=== PATIENT | female | born 1990 | race Caucasian/White ===

== ENCOUNTER 2021-03-14 10:26 | Emergency (ER) | payer OTHER, SELFPAY ==
[2021-03-14 10:47] VITALS: BP 108/72; PULSE 85; RESP 18; TEMP 36.7; O2SAT 96; BMI 26.2
[2021-03-14] MEDS: Acetaminophen 325 MG TABLET 650 MG PO (11:36)
[2021-03-14] MEDS: Lidocaine 4 % Patch ADH..PATCH 1 PATCH TRANSDERMA (11:36)
--- NOTE | 2021-03-14 11:46 | ED_ITS ---
HPI - General Adult General Chief complaint: General Medical Stated complaint: body pain Time Seen by Provider: 03/14/21 11:08 Source: patient Mode of arrival: ambulatory History of Present Illness HPI narrative: 30 y.o. F with PMH of bipolar disorder, anxiety, fibromyalgia,hypothyroidism presenting to the ED with body pain. SHe tells me because of the weather change she is having a flare up of her fibromyalgia pain. SHe states she is here because her boyfriend is being seen as well and she had to help him come into the ED and he was leaning on her shoulders and she thinks this might have exacerbated her pain. She denies trauma or injury. She states she was seeing physical therapy for her pain and was previously on lyrica but has been off the medications because she had travelled to [place] and was there for quite some time. SHe is disabeled due to her fibromyalgia pain. SHe has been attempting to get in with a primary care doctor but has been unsuccessful. Her pain is everywhere, back, shoulders, knees, legs. She does use cannabis to take the edge of the pain.She denies chance of had a tubal surgery in the past. Related Data Previous Rx's Medication Instructions Recorded lidocaine 5 % topical patch 1 patch TOPICAL DAILY 7 Days #7 ea 03/14/21 Allergies Allergy/AdvReac Type Severity Reaction Status Date / Time ketorolac [From TORADOL] Allergy Severe ANAPHYLAXIS Verified 03/14/21 10:50 metoclopramide [From REGLAN] Allergy Severe ANAPHYLAXIS Verified 03/14/21 10:50 prochlorperazine Allergy Severe ANAPHYLAXIS Verified 03/14/21 10:50 [From COMPAZINE] Review of Systems Constitutional: Constitutional: Denies fever(s) and Denies headache(s) Eyes: Eyes: Reports no additional eye complaints ENT: Denies dizziness and Denies headache(s) Cardiovascular: Cardiovascular: Denies chest pain and Denies dyspnea Respiratory: Respiratory: Denies dyspnea Gastrointestinal: Gastrointestinal: Denies abdominal pain Musculoskeletal: Comments: body pain, extremity pain, back pain Neurologic: Denies dizziness and Denies headache(s) Psychiatric: Psychiatric: Reports anxiety Hematologic/Lymphatic: Hematologic/Lymphatic: Denies easy bleeding PMFSH Past Medical History Medical History (Updated 03/14/21 @ 11:47 by JEREMIAH Levin) Fibromyalgia Social History Social History (Updated 03/14/21 @ 12:31 by JEREMIAH Levin) Substance Use Type: Marijuana Advance Directives: No Advance Directives Information Provided: No Patient : No Physical Exam Vital Signs: Vital Signs: Last Vital Signs Temp 98.1 F 03/14/21 10:47 Pulse 85 03/14/21 10:47 Resp 18 03/14/21 10:47 BP 108/72 03/14/21 10:47 Pulse Ox 96 03/14/21 10:47 Body Mass Index 26.2 Const: General: cooperative Orientation/consciousness: patient oriented x3 HENMT: Head: Yes atraumatic Eyes: Pupils: Equal, round and reactive pupils present EOM: EOMs intact bilaterally Neck: Neck: Yes full ROM, Yes no meningeal signs, Yes trachea midline and Yes supple Chest: Other: no visible deformity Resp: Effort & Inspection: normal respiratory effort and able to speak in complete sentences Auscultation: clear to auscultation bilaterally Cardio: Rate: regular rate Rhythm: regular rhythm GI: Palpation (GI): Soft to palpation and nontender Back/Spine/Pelvis: Other: full ROM Skin: Rashes: no rashes Neuro: General: patient oriented x3 and no meningeal signs Cranial nerves: Yes Equal, round and reactive pupils present Extrem: Other: moving all extremities spontnaneously, ambulatory with steady gait, able to get in and out of the stretcher freely without difficulty General: Yes full ROM Psych: Appearance: grossly normal Medical Decision Making MDM Narrative Medical decision making narrative: 30 y.o. F presenting to the ED with body pain, suspects it is her fibromyalgia flare VS stable, not toxic appearing, hemodynamically stable Pt. has no focal pain, pain is diffuse. Since she has no accompanied URI symptoms, afebrile doubt COVID will defer swab. NO focal weakness. No recent trauma or fall to suggest underlying fx. No infectious symptoms, no signs of systemic illness. No menningeal signs. No report of rash or fever. No symptoms to suggest a UTI. No red flags for SEA/cord compression. No parasthesias. No indication for imaging or labs. -Pt. was given tylenol and a lidocaine patch and was very upset that her chronic pain is not being treated. I had a lengthy discussion with her that she needs to follow up with a PCP for pain management and possibly PT again. She tells me she needs something for pain and that she has tylenol at home which she could take. I asked her what she is specifically looking for what she could not tell me. She refused to sign the papers because she did not want to leave until her pain was treated. She tells me she will go to [facility] for better care. I did encourage her to seek additional treatment should she feel that was necessary. She is going to file a complaint because she does not think her pain was adequately treated. -Pt. has chronic pain and needs follow up with a PCP/pain management- in the meantime lidocaine patches and tylenol are sufficient for pain control which I have discussed with her. Will not give narcotics during this visit. Discharge Plan Discharge Clinical Impression: Total body pain Patient Disposition: Home, Self-Care Instructions: Pain Management (ED) Additional Instructions: PLease continue to call to establish a primary care doctor. Please return should your symptoms worsen, increased pain, weakness, numbness, tingling, difficulty walking, loss of balance, falling, or any other concerning symptoms. You may take tylenol for pain if needed as directed over the counter. Prescriptions: New lidocaine 5 % adhesive patch,medicated 1 patch topical DAILY 7 Days Qty: 7 RF: 0 Interventions: ED Discharge Assessment Last Done: 03/14/21 12:16 Discharge Date/Time: 03/14/21 12:16
--- NOTE | 2021-03-14 11:59 | PC.NURSE ---
PT HAS QUESTIONS FOR PROVIDER REGARDING HER PAIN TREATMENT HERE IN ED. PT SAYING MY MOTHER IS ON THE PHONE AND SHE IS SAYING DONT SIGN ANYTHING BECAUSE THEY ARE NOT TAKING YOUR FIBROMYALGIA SERIOUS AND YOU SHOULD GO TO [facility]. PT QUESTIONING THIS RN AND PROVIDER REGARDING HER TREATMENT AT THIS TIME. NO FACIAL GRIMACING, PT HAS STEADY GAIT, MOVING ALL EXTREMITIES, PT UNHAPPY ABOUT ONLY GETTING TYLENOL AND LIDOCAINE PATCHES.
--- NOTE | 2021-03-14 12:14 | PC.NURSE ---
PT GIVEN INFORMATION ON HOW TO FILE A COMPLAINT. THIS RN WITNESSED PATIENT LEAVE [facility].
== END 2021-03-14 12:16 | disposition home or self-care (01) ==
PROVIDERS: Emergency Provider Emergency Medicine
DX: M79.10 Myalgia, unspecified site (principal); F31.9 Bipolar disorder, unspecified; F12.90 Cannabis use, unspecified, uncomplicated; Z79.899 Other long term (current) drug therapy
CPT/HCPCS: 99283

== ENCOUNTER 2024-11-08 10:03 | Outpatient (AMB) | payer OTHER, SELFPAY ==
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
[2024-11-08 10:08] VITALS: BP 140/70; PULSE 116; TEMP 36.4; O2SAT 97; BMI 23.2
--- OUTSIDE RECORDS SUMMARY | 2024-11-08 10:51 | XMS_ITS | Patient Health Record ---
Author Organization [facility] Address [address] [place] [address] Care Team Providers Care Sales Porter Name Role Phone JOSIANE VARGAS Unavailable [phone] ALLERGIES Allergen (clinical drug ingredient) Drug/Non Drug Allergy documented on EMR Reaction Allergy Type Onset Date Status metoclopramide Reglan rash Drug Allergy Ac tive Compazine hives Drug Allergy Active RESULTS Component Value Reference Range Notes CBC WITH AUTO DIFF Reviewed date:03/28/2024 01:31:54 PM Interpretation: Performing Lab: Notes/Report: WBC 11.5 4.8-10.8 x10-3/uL RBC 4.4 3.8-4.8 x10-6/uL HEMOGLOBIN 12.6 11.5-16.0 g/dL HEMATOCRIT 39.7 35-47 % MCV 91.3 79-98 fL MCH 29.0 27-32 pg MCHC 31.7 32-37 g/dL RDW 13.6 11-15 % PLT COUNT 448 130-400 x10-3/uL MEAN PLATELET VOLUME 10.4 7-11 fL NRBC % AUTO 0.0 <1 % NEUT % 74.8 LYMPH % 20.3 MONO % 4.2 EOS % 0.1 BASO % 0.3 IMMATURE GRANULOCYTES % 0.3 NRBC # AUTO 0.00 <0.1 x10-3/uL ABSOLUTE NEUT 8.62 1.5-7.0 x10-3/uL LYMPH # 2.34 1-5.0 x10-3/uL MONO # 0.49 0.2-1.0 x10-3/uL EOS # 0.01 0-0.5 x10-3/uL BASO # 0.04 0-0.2 x10-3/uL IMMATURE GRANULOCYTES # 0.04 0-0.03 x10-3/uL TOTAL IRON BINDING CAPACITY Reviewed date:03/28/2024 05:15:03 PM Interpretation: Performing Lab: Notes/Report: Note Original Orderi ng Provider: JOSIANE VARGAS FILM PRODUCER TOTAL IRON BINDING CAPACITY 328 250-450 ug/dL IRON (FE) 53 40-150 ug/dL % FE SATURATION 16 15-50 % FERRITIN Reviewed date:03/28/2024 05:15:03 PM Interpretation: Performing Lab: Notes/Report: FERRITIN 39 8-252 ng/mL Note [employer], a member of [address] [address] [employer] - Abby Hodgson MD VAGINOSIS DNA PANEL Reviewed date:01/31/2024 10:31:35 AM Interpretation: Performing Lab: Notes/Report: Note Original Ordering Provider: ADAMS SARGENT MD [employer], a member of [address] [address] [employer] - Abby Hodgson MD TRICHOMONAS VAGINALIS NEGATIVE NEGATIVE GARDERELLA VAGINALIS NEGATIVE NEGATIVE ROSA SPECIES NEGATIVE NEGATIVE Note Original Ordering Provider: ADAMS SARGENT MD [employer], [place] [address] [employer] - Abby Hodgson MD REASON FOR REFERRAL No Information MEDICATIONS Medication SIG (Take, Route, Fr equency, Duration) Notes Start Date End Date Status Mounjaro 2.5 MG/0.5ML 2.5mg Subcutaneous weekly for 30 days Active Pregabalin 25 MG 1 capsule Orally twi ce a day for 30 days Active Mounjaro 2.5 MG/0.5ML INJECT 2.5MG SUBCU TANEOUSLY WEEKLY Active Ferrous Sulfate 325 (65 Fe) MG 1 tablet Orally daily for 90 days 03/28/2024 Active IMMUNIZATIONS Vaccine Route Administration Date Status Comme nts COVID 19 VACCINE IM Intramuscular 05/16/2023 Administered SOCIAL HISTORY Tobacco Use: Social History Observation Description Date Details (start date - stop date) Former Smoker NA - NA Sex Assigned At : Social History Observation Description Sex Assigned At Unknown Tobacco Use/Smoking Question Answer Notes Are you a former smoker Section Notes: Tob: Not currenty ETOH: None Medical Marijuana license Tob: Former tobacco abuse ETOH: None Medical Marijuana license, vape pen- weed Originally from [place] Tob: Former tobacco abuse ETOH: None Medical Marijuana license, vape pen- weed Originally from [place] Tob: Former tobacco abuse ETOH: None Medical Marijuana license, vape pen- weed Originally from [place] Tob: Not currenty ETOH: None Medical Marijuana license Tob: Not currenty ETOH: None Medical Marijuana license Tob: Not currenty ETOH: None Medical Marijuana license Tob: Not currenty ETOH: None Medical Marijuana license Tob: Not currenty ETOH: None Medical Marijuana license Tob: Not currenty ETOH: None Medical Marijuana license Tob: Former tobacco abuse ETOH: None Medical Marijuana license, vape pen- weed Originally from [place] Tob: Not currenty ETOH: None Medical Marijuana license Tob: Not currenty ETOH: None Medical Marijuana license Tob: Not currenty ETOH: None Medical Marijuana license Tob: Not currenty ETOH: None Medical Marijuana license Tob: Former tobacco abuse ETOH: None Medical Marijuana license, vape pen- weed Originally from [place] Tob: Former tobacco abuse ETOH: None Medical Marijuana license, vape pen- weed Originally from [place] PROBLEMS Problem Type ICD Code Onset Dates Problem Status W/U Status Risk SNOMED Code Notes Problem Tension headache (G44.209) Active confirmed Tension headach e (636846983) Problem Menorrhagia with regular cycle (N92.0) Active confirmed 404164499 Problem BMI 30.0-30.9,adult (Z68.30) Active confirmed Body mass index 30+ - obesity (513382815) Problem Body mass index [BMI ] 32.0-32.9, adult (Z68.32) Active confirmed 539096263 Problem Gastroesophageal reflux disease without esophagitis (K21.9) Active confirmed 986024061 Problem Bipolar 1 disorder (F31.9) Active confirmed Bipolar 1 disorder (412634315) Problem Hypothyroidism, unspecified type (E03.9) Active confirmed 87325636 Problem Postmenopausal bleeding (N95.0) Active confirmed Postmenopau miguelangel bleeding (43476992) Problem Mixed hyperlipidemia (E78.2) Active confirmed 350472793 Problem Acute sore throat (J02.9) Active confirmed Acute pharyngitis (063560703) Problem Asthma (J45.909) Active confirmed Asthm a (238043986) Problem Bipolar 1 disorder, depressed (F31.9) Active confirmed Bipolar di sorder (49172651) Problem Cough (R05.9) Active confirmed Cough (4 9156255) Problem Encounter for screening mammogram for breast cancer (Z12.31) Active confirmed 198785963 Problem Stress (F43.9) Active confirmed Stress (19026968) Problem BMI 31.0-31.9,adult (Z68.31) Active confirmed Body mass index 30.00 to 34.99 (688604140539408 ) Problem Hot flashes (R23.2) Active confirmed Ho t flashes (876258155) Problem Knee pain, unspecifi ed chronicity, unspecified laterality (M25.569) Active confirmed Pain of knee region (finding) (9675960894) Problem Obesity (BMI 30.0-34.9) (E66.9) Active confirmed Obese cla ss I (finding) (366062429041228 ) Problem 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) Active confirmed 7733568 Problem Anxiety (F41.9) Active confirmed Anxiet y (44238377) Problem Hyperlipidemia, unspecified hyperlipidemia type (E78.5) Active confirmed 74772706 Problem Encounter for screening for cardiovascular disorders (Z13.6) Active confirmed Screening for cardiovascular system disease (552997753) Problem Encounter for screening for diabetes mellitus (Z13.1) Active confirmed 302345374 Problem Other obesity (E66.8) Active confirmed 194289178 Problem Vitamin D deficiency , unspecified (E55.9) Active confirmed 16382789 VITAL SIGNS Heart Rate 86 /min 03/28/2024 Blood pressure diastolic 60 mm Hg 03/28/2024 Oximetry 99 % 03/28/2024 Height 61 in 03/28/2024 Blood pressure systolic 100 mm Hg 03/28/2024 Weight 127 lbs 03/28/2024 BMI 23.99 kg/m2 03/28/2024 Encounters Encounter Location Date Provider Diagnosis [facility] [address] [address] 01/30/2024 JOSIANE VARGAS BMI 25.0-25.9,adult Z68.25 ; Overweight (BMI 25.0-29.9) E66.3 ; Dietary counseling and surveillance Z71.3 ; Bipolar 1 disorder F31.9 and Hypothyroidism, unspecified type E03.[address] [facility] [address] [facility] [address] [address] 04/25/2024 JOSIANE VARGAS [facility] [address] [facility] [address] [address] 08/01/2024 JOSIANE VARGAS [facility] [address] [facility] [address] [address] 12/05/2023 JOSIANE VARGAS Bipolar 1 disorder F31.9 ; Overweight (BMI 25.0-29.9) E66.3 ; Hypothyroidism, unspecified type E03.9 and BMI 25.0-25.9,adult Z68.[address] [facility] [address] [facility] [address] 03/28/2024 JOSIANE VARGAS BMI 25.0-25.9,adult Z68.25 ; Overweight (BMI 25.0-29.9) E66.3 ; Dietary counseling and surveillance Z71.3 ; Bipolar 1 disorder F31.9 ; Hypothyroidism, unspecified type E03.9 and Menorrhagia with regular cycle N92.0 [facility] [place] [address] [facility] [address] [address] 03/27/2024 JOSIANE VARGAS Overweight (BMI 25.0-29.9) E66.3 [facility] [address] [facility] [address] 03/28/2024 JOSIANE VARGAS [facility] [address] [facility] [address] 04/04/2024 JOSIANE VARGAS Overweight (BMI 25.0-29.9) E66.3 [address] [facility] [address] [address] 04/20/[address] [facility] [address] [facility] [address] 04/24/2024 JOSIANE VARGAS [address] [facility] [address] [address] 04/25/2024 JOSIANE VARGAS [facility] [address] [facility] [address] 07/09/2024 JOSIANE VARGAS [facility] [address] [place] [address] [place] [address] 08/05/2024 JOSIANE VARGAS ASSESSMENTS Encounter Date Diagnosis Assessment Notes Treatment Notes Treatment Clinical Notes Section Notes 12/05/2023 Bipolar 1 disorder (ICD-10 - F31.9) #Weight Management 12/05/2023 Updated labs reviewed Discussed protein consumption and [...] minimum of 6 months The most recent [place] [employer] of clinical endocrinologists and [employer] of endocrinology guidelines recommend patients who [...] track activity level. Consider using apps like [employer], [employer], lose it, stick as needed for self-monitoring and weight management. Consider group exercises. Consider hiring a link trainer maintenance man. Regular exercise is berrios to sustainable health [...] about local counseling and psychiatry and Dr Jarerll at [facility]. We would like to cover regular topics [...] software and direct typing Please excuse inadvertent transport tech or typing errors, or uncorrected word substitutions Although every attempt has been made by the provider to proofread this document, occasional misspellings and typographical errors may still be present Due to the previous pandemic, and the use of personal protective equipment (PPE) This may decrease voice recognition accuracy Inadvertent transport tech errors may occur 01/30/2024 BMI 25.0-25.9,adult (ICD-10 - Z68.25) #Weight [...] minimum of 6 months The most recent [place] [employer] of clinical endocrinologists and [place] [employer] of endocrinology guidelines recommend patients who [...] track activity level. Consider using apps like [employer], [employer], lose it, stick as needed for self-monitoring and weight management. Consider group exercises. Consider hiring a link trainer maintenance man. Regular exercise is berrios to sustainable health [...] counseling and psychiatry and Dr Jarrell at [facility]. We would like to cover regular topics [...] software and direct typing Please excuse inadvertent transport tech or typing errors, or uncorrected word substitutions Although every attempt has been made by the provider to proofread this document, occasional misspellings and typographical errors may still be present Due to the previous pandemic, and the use of personal protective equipment (PPE) This may decrease voice recognition accuracy Inadvertent transport tech errors may occur 03/27/2024 Overweight (BMI 25.0-29.9) (ICD-10 - E66.3) 03/28/2024 BMI 25.0-25.9,adult (ICD-10 - Z68.25) Acute Concerns/Problem List: 03/29/2024 Lets get a CBC and iron studies Start iron Discussed protein consumption and vitamins The conditions are mostly stable including bipolar disorder cont mounjaro 5mg cont Lyrica We discussed maintenance dosing moving forward, about every 3-4 weeks is acceptable. Lyrica prescrbed for fibromyalgia pain. Total time spent today was 30 minutes of which greater than 50% was spent on coordinating and counseling Patient has been found to be overweight with a BMI of (25). We are a board certified obesity and weight management practice Patient has trialed behavioral modification, dietary restrictions and exercise for a minimum of 6 months The most recent [place] [employer] of clinical endocrinologists and [place] [employer] of endocrinology guidelines recommend patients who [...] track activity level. Consider using apps like [employer], [employer], lose it, stick as needed for self-monitoring and weight management. Consider group exercises. Consider hiring a link trainer maintenance man. Regular exercise is berrios to sustainable health [...] counseling and psychiatry and Dr Jarrell at [facility]. We would like to cover regular topics [...] software and direct typing Please excuse inadvertent transport tech or typing errors, or uncorrected word substitutions Although every attempt has been made by the provider to proofread this document, occasional misspellings and typographical errors may still be present Due to the previous pandemic, and the use of personal protective equipment (PPE) This may decrease voice recognition accuracy Inadvertent transport tech errors may occur 04/04/2024 Overweight (BMI 25.0-29.9) (ICD-10 - E66.3) 03/28/2024 Overweight (BMI 25.0-29.9) (ICD-10 - E66.3) Acute Concerns/Problem List: 03/29/2024 Lets get a CBC and iron studies Start iron Discussed protein consumption and vitamins The conditions are mostly stable including bipolar disorder cont mounjaro 5mg cont Lyrica We discussed maintenance dosing moving forward, about every 3-4 weeks is acceptable. Lyrica prescrbed for fibromyalgia pain. Total time spent today was 30 minutes of which greater than 50% was spent on coordinating and counseling Patient has been found to be overweight with a BMI of (25). We are a board certified obesity and weight management practice Patient has trialed behavioral modification, dietary restrictions and exercise for a minimum of 6 months The most recent [place] [employer] of clinical endocrinologists and [employer] of endocrinology guidelines recommend patients who [...] track activity level. Consider using apps like [employer], myfitnesspal, lose it, stick as needed for self-monitoring and weight management. Consider group exercises. Consider hiring a link trainer maintenance man. Regular exercise is berrios to sustainable health [...] counseling and psychiatry and Dr Jarrell at [facility]. We would like to cover regular topics [...] software and direct typing Please excuse inadvertent transport tech or typing errors, or uncorrected word substitutions Although every attempt has been made by the provider to proofread this document, occasional misspellings and typographical errors may still be present Due to the previous pandemic, and the use of personal protective equipment (PPE) This may decrease voice recognition accuracy Inadvertent transport tech errors may occur 03/28/2024 Dietary counseling and surveillance (ICD-10 - Z71.3) Acute Concerns/Problem List: 03/29/2024 Lets get a CBC and iron studies Start iron Discussed protein consumption and vitamins The conditions are mostly stable including bipolar disorder cont mounjaro 5mg cont Lyrica We discussed maintenance dosing moving forward, about every 3-4 weeks is acceptable. Lyrica prescrbed for fibromyalgia pain. Total time spent today was 30 minutes of which greater than 50% was spent on coordinating and counseling Patient has been found to be overweight with a BMI of (25). We are a board certified obesity and weight management practice Patient has trialed behavioral modification, dietary restrictions and exercise for a minimum of 6 months The most recent [place] [employer] of clinical endocrinologists and [employer] of endocrinology guidelines recommend patients who [...] track activity level. Consider using apps like [employer], [employer], lose it, stick as needed for self-monitoring and weight management. Consider group exercises. Consider hiring a link trainer maintenance man. Regular exercise is berrios to sustainable health [...] counseling and psychiatry and Dr Jarrell at [facility]. We would like to cover regular topics [...] software and direct typing Please excuse inadvertent transport tech or typing errors, or uncorrected word substitutions Although every attempt has been made by the provider to proofread this document, occasional misspellings and typographical errors may still be present Due to the previous pandemic, and the use of personal protective equipment (PPE) This may decrease voice recognition accuracy Inadvertent transport tech errors may occur 01/30/2024 Overweight (BMI 25.0-29.9) [...] minimum of 6 months The most recent [place] [employer] of clinical endocrinologists and [employer] of endocrinology guidelines recommend patients who [...] track activity level. Consider using apps like [employer], [employer], lose it, stick as needed for self-monitoring and weight management. Consider group exercises. Consider hiring a link trainer maintenance man. Regular exercise is berrios to sustainable health [...] counseling and psychiatry and Dr Jarrell at [facility]. We would like to cover regular topics [...] software and direct typing Please excuse inadvertent transport tech or typing errors, or uncorrected word substitutions Although every attempt has been made by the provider to proofread this document, occasional misspellings and typographical errors may still be present Due to the previous pandemic, and the use of personal protective equipment (PPE) This may decrease voice recognition accuracy Inadvertent transport tech errors may occur 12/05/2023 Overweight (BMI 25.0-29.9) (ICD-10 - E66.3) #Weight Management 12/05/2023 Updated labs reviewed Discussed protein consumption and [...] minimum of 6 months The most recent [place] [employer] of clinical endocrinologists and [employer] of endocrinology guidelines recommend patients who [...] track activity level. Consider using apps like [employer], [employer], lose it, stick as needed for self-monitoring and weight management. Consider group exercises. Consider hiring a link trainer maintenance man. Regular exercise is berrios to sustainable health [...] counseling and psychiatry and Dr Jarrell at [facility]. We would like to cover regular topics [...] software and direct typing Please excuse inadvertent transport tech or typing errors, or uncorrected word substitutions Although every attempt has been made by the provider to proofread this document, occasional misspellings and typographical errors may still be present Due to the previous pandemic, and the use of personal protective equipment (PPE) This may decrease voice recognition accuracy Inadvertent transport tech errors may occur 01/30/2024 Dietary counseling and [...] minimum of 6 months The most recent [place] [employer] of clinical endocrinologists and [employer] of endocrinology guidelines recommend patients who [...] track activity level. Consider using apps like [employer], my[employer]tek [employer]pal, lose it, stick as needed for self-monitoring and weight management. Consider group exercises. Consider hiring a link trainer maintenance man. Regular exercise is berrios to sustainable health [...] counseling and psychiatry and Dr Jarrell at [facility]. We would like to cover regular topics [...] software and direct typing Please excuse inadvertent transport tech or typing errors, or uncorrected word substitutions Although every attempt has been made by the provider to proofread this document, occasional misspellings and typographical errors may still be present Due to the previous pandemic, and the use of personal protective equipment (PPE) This may decrease voice recognition accuracy Inadvertent transport tech errors may occur 12/05/2023 Hypothyroidism, unspecified type (ICD-10 - E03.9) #Weight Management 12/05/2023 Updated labs reviewed Discussed protein consumption and [...] minimum of 6 months The most recent [place] [employer] of clinical endocrinologists and [employer] of endocrinology guidelines recommend patients who [...] track activity level. Consider using apps like [employer], myfitnesspal, lose it, stick as needed for self-monitoring and weight management. Consider group exercises. Consider hiring a link trainer maintenance man. Regular exercise is berrios to sustainable health [...] counseling and psychiatry and Dr Jarrell at [facility]. We would like to cover regular topics [...] software and direct typing Please excuse inadvertent transport tech or typing errors, or uncorrected word substitutions Although every attempt has been made by the provider to proofread this document, occasional misspellings and typographical errors may still be present Due to the previous pandemic, and the use of personal protective equipment (PPE) This may decrease voice recognition accuracy Inadvertent transport tech errors may occur 01/30/2024 Bipolar 1 disorder [...] minimum of 6 months The most recent [place] Association of clinical endocrinologists and [employer] of endocrinology guidelines recommend patients who [...] track activity level. Consider using apps like [employer], [employer], lose it, stick as needed for self-monitoring and weight management. Consider group exercises. Consider hiring a link trainer maintenance man. Regular exercise is berrios to sustainable health [...] counseling and psychiatry and Dr Jarrell at [facility]. We would like to cover regular topics [...] software and direct typing Please excuse inadvertent transport tech or typing errors, or uncorrected word substitutions Although every attempt has been made by the provider to proofread this document, occasional misspellings and typographical errors may still be present Due to the previous pandemic, and the use of personal protective equipment (PPE) This may decrease voice recognition accuracy Inadvertent transport tech errors may occur 03/28/2024 Bipolar 1 disorder (ICD-10 - F31.9) Acute Concerns/Problem List: 03/29/2024 Lets get a CBC and iron studies Start iron Discussed protein consumption and vitamins The conditions are mostly stable including bipolar disorder cont mounjaro 5mg cont Lyrica We discussed maintenance dosing moving forward, about every 3-4 weeks is acceptable. Lyrica prescrbed for fibromyalgia pain. Total time spent today was 30 minutes of which greater than 50% was spent on coordinating and counseling Patient has been found to be overweight with a BMI of (25). We are a board certified obesity and weight management practice Patient has trialed behavioral modification, dietary restrictions and exercise for a minimum of 6 months The most recent [place] Association of clinical endocrinologists and [employer] of endocrinology guidelines recommend patients who [...] track activity level. Consider using apps like [employer], [employer], lose it, stick as needed for self-monitoring and weight management. Consider group exercises. Consider hiring a link trainer maintenance man. Regular exercise is berrios to sustainable health [...] counseling and psychiatry and Dr Jarrell at [facility]. We would like to cover regular topics [...] software and direct typing Please excuse inadvertent transport tech or typing errors, or uncorrected word substitutions Although every attempt has been made by the provider to proofread this document, occasional misspellings and typographical errors may still be present Due to the previous pandemic, and the use of personal protective equipment (PPE) This may decrease voice recognition accuracy Inadvertent transport tech errors may occur 03/28/2024 Hypothyroidism, unspecified type (ICD-10 - E03.9) Acute Concerns/Problem List: 03/29/2024 Lets get a CBC and iron studies Start iron Discussed protein consumption and vitamins The conditions are mostly stable including bipolar disorder cont mounjaro 5mg cont Lyrica We discussed maintenance dosing moving forward, about every 3-4 weeks is acceptable. Lyrica prescrbed for fibromyalgia pain. Total time spent today was 30 minutes of which greater than 50% was spent on coordinating and counseling Patient has been found to be overweight with a BMI of (25). We are a board certified obesity and weight management practice Patient has trialed behavioral modification, dietary restrictions and exercise for a minimum of 6 months The most recent [place] Association of clinical endocrinologists and [place] College of endocrinology guidelines recommend patients who [...] track activity level. Consider using apps like [employer]urity, LabourNetpal, lose it, stick as needed for self-monitoring and weight management. Consider group exercises. Consider hiring a link trainer maintenance man. Regular exercise is berrios to sustainable health [...] counseling and psychiatry and Dr Jarrell at [facility]. We would like to cover regular topics [...] software and direct typing Please excuse inadvertent transport tech or typing errors, or uncorrected word substitutions Although every attempt has been made by the provider to proofread this document, occasional misspellings and typographical errors may still be present Due to the previous pandemic, and the use of personal protective equipment (PPE) This may decrease voice recognition accuracy Inadvertent transport tech errors may occur 01/30/2024 Hypothyroidism, unspecified type [...] minimum of 6 months The most recent [place] Association of clinical endocrinologists and [place] College of endocrinology guidelines recommend patients who [...] track activity level. Consider using apps like BioCurity, myfitDraytek Technologiespal, lose it, stick as needed for self-monitoring and weight management. Consider group exercises. Consider hiring a link trainer maintenance man. Regular exercise is berrios to sustainable health [...] counseling and psychiatry and Dr Jarrell at [facility]. We would like to cover regular topics [...] software and direct typing Please excuse inadvertent transport tech or typing errors, or uncorrected word substitutions Although every attempt has been made by the provider to proofread this document, occasional misspellings and typographical errors may still be present Due to the previous pandemic, and the use of personal protective equipment (PPE) This may decrease voice recognition accuracy Inadvertent transport tech errors may occur 12/05/2023 BMI 25.0-25.9,adult (ICD-10 - Z68.25) #Weight Management 12/05/2023 Updated labs reviewed Discussed protein consumption and [...] minimum of 6 months The most recent [place] Association of clinical endocrinologists and [place] College of endocrinology guidelines recommend patients who [...] track activity level. Consider using apps like HouseTripise, myfitnesspal, lose it, stick as needed for self-monitoring and weight management. Consider group exercises. Consider hiring a link trainer maintenance man. Regular exercise is berrios to sustainable health [...] counseling and psychiatry and Dr Jarrell at [facility]. We would like to cover regular topics [...] software and direct typing Please excuse inadvertent transport tech or typing errors, or uncorrected word substitutions Although every attempt has been made by the provider to proofread this document, occasional misspellings and typographical errors may still be present Due to the previous pandemic, and the use of personal protective equipment (PPE) This may decrease voice recognition accuracy Inadvertent transport tech errors may occur 03/28/2024 Menorrhagia with regular cycle (ICD-10 - N92.0) Acute Concerns/Problem List: 03/29/2024 Lets get a CBC and iron studies Start iron Discussed protein consumption and vitamins The conditions are mostly stable including bipolar disorder cont mounjaro 5mg cont Lyrica We discussed maintenance dosing moving forward, about every 3-4 weeks is acceptable. Lyrica prescrbed for fibromyalgia pain. Total time spent today was 30 minutes of which greater than 50% was spent on coordinating and counseling Patient has been found to be overweight with a BMI of (25). We are a board certified obesity and weight management practice Patient has trialed behavioral modification, dietary restrictions and exercise for a minimum of 6 months The most recent [place] Association of clinical endocrinologists and [place] College of endocrinology guidelines recommend patients who [...] track activity level. Consider using apps like [employer]Curity, [employer]pal, lose it, stick as needed for self-monitoring and weight management. Consider group exercises. Consider hiring a link trainer maintenance man. Regular exercise is berrios to sustainable health [...] counseling and psychiatry and Dr Jarrell at [facility]. We would like to cover regular topics [...] software and direct typing Please excuse inadvertent transport tech or typing errors, or uncorrected word substitutions Although every attempt has been made by the provider to proofread this document, occasional misspellings and typographical errors may still be present Due to the previous pandemic, and the use of personal protective equipment (PPE) This may decrease voice recognition accuracy Inadvertent transport tech errors may occur PLAN OF TREATMENT Pending Test Test Name Order Date MAMMOGRAM, SCREENING 07/27/2023 XR Chest 2 Views 04/26/2022 XR Foot 2 Views RT 09/05/2022 XR Knee 1-2 Views LT 04/26/2022 XR Knee 3 Views LT 04/12/2022 LIPID PANEL, STANDARD 03/21/2022 LIPID PANEL, STANDARD 02/01/2023 IRON, TIBC AND FERRITIN PANEL 03/28/2024 COMPREHENSIVE METABOLIC PANEL 03/21/2022 COMPREHENSIVE METABOLIC PANEL 02/01/2023 CBC (INCLUDES DIFF/PLT) 02/01/2023 CBC (INCLUDES DIFF/PLT) 03/21/2022 CBC (INCLUDES DIFF/PLT) 03/28/2024 URINALYSIS, COMPLETE 02/01/2023 URINALYSIS, COMPLETE 03/21/2022 HEMOGLOBIN A1c 02/01/2023 HEMOGLOBIN A1c 03/21/2022 VITAMIN B12 03/21/2022 T4, FREE 03/21/2022 T4 (THYROXINE), TOTAL 02/01/2023 TSH 02/01/2023 TSH 03/21/2022 VITAMIN D,25-OH,TOTAL,IA 03/21/2022 VITAMIN D,25-OH,TOTAL,IA 02/01/2023 Chest Min 4 Views 04/12/2022 Insurance Providers Payer Name Payer Address Payer Phone Subscriber Number Group Number Insured Name Patient Relationship to Insured Coverage Start Date Coverage End Date [employer]Joleen or Options [address] [place] [id number] Tiak Meyer Self - patient is the insured MEDICATIONS ADMINISTERED Medication Instructions Date of Administration Dosage Notes MICC B12 INJECTION 04/26/2022 lot # [id number] MICC B12 INJECTION 05/04/2022 lot # [id number] MICC B12 INJECTION 05/19/2022 1 Lot #: [id number] MICC B12 INJECTION 09/05/2022 [id number] MICC B12 INJECTION 09/19/2022 1 mL Lot [id number] MICC B12 INJECTION 09/29/2022 lot # [id number] MICC B12 INJECTION 10/11/2022 lot # [id number] MICC B12 INJECTION 02/01/2023 lot # [id number] MICC B12 INJECTION 02/14/2023 1 MICC B12 INJECTION 04/18/2023 MICC B12 INJECTION 04/25/2023 LLQ SQ MICC B12 INJECTION 05/09/2023 1 mL MICC B12 INJECTION 05/16/2023 lot#[id number] MICC B12 INJECTION 06/20/2023 1ml MICC B12 INJECTION 07/19/2023 1 mL Semaglutide 04/11/2023 0.25 mg LRQ SQ Semaglutide 04/18/2023 0.25 mg Semaglutide 04/25/2023 0.5 mg LLQ SQ Semaglutide 05/09/2023 0.25 mL Semaglutide 05/16/2023 lot#[id number] 0.5mg Semaglutide 06/20/2023 .25 Semaglutide 07/19/2023 0.25 mg MEDICAL (GENERAL) HISTORY Medical History History ICD Code Asthma J45.909 Hypothyroidism (acquired) E03.9 Bipolar depression F31.9 PTSD (post-traumatic stress disorder) F4 3.10 Fibromyalgia M79.7 Gastritis, unspecified, without bleeding K29.70 Asthma J45.909 Herpes simplex B00.9 Dysplasia of cervix uteri, unspecified N 87.9 GERD without esophagitis K21.9 Fibromyalgia M79.7 Surgical History Surgery Date(Month/Year) L inguinal herniorraphy Tubal Ligation LEEP Hospitalization History Reason Date(Month/Year) Vomiting- ER only, due to semaglutide 2022 Hyperemesis
--- OUTSIDE RECORDS SUMMARY | 2024-11-08 10:51 | XMS_ITS ---
Author Organization [facility] Address [address] [place] [phone] Care Team Providers Care Court Orderly Name Role Phone JOSIANE VARGAS Unavailable [phone] REASON FOR VISIT Refill Encounters Encounter Location Date Provider Diagnosis [facility] [address] [place] [phone] 08/05/2024 JOSIANE VARGAS PLAN OF TREATMENT No Information Progress Notes * Tika MEYERDOB:1990 (33 yo F)Acc No.[id number]:08/05/2024 Patient:??Tika MEYER :1990?Age:33 Y?Sex:Fe male Address:[address] [place] [phone] * true * Date:??
--- OUTSIDE RECORDS SUMMARY | 2024-11-08 10:51 | XMS_ITS ---
Author Organization [facility] Address [address] [place] [address] Care Team Providers Care Engine Research Engineer Name Role Phone JOSIANE VARGAS Unavailable [phone] Encounters Encounter Location Date Provider Diagnosis [facility] [address] [phone] 08/01/2024 JOSIANE VARGAS PLAN OF TREATMENT No Information Progress Notes * RIRITika ZHUDOB:1990 (34 yo F)Acc No.[id number]:08/01/2024 Progress Note Patient:??Tika MEYER Provider:??JOSIANE VARGAS NP :1990?Age:33 Y?Sex:Fe male Date:08/01/2024 Address:[address] [place], [place] [phone] Subjective: * Chief Complaints: * ? * Medical History:?? Objective: Assessment: Plan: * Treatment: * Images: Billing Information: * Visit Code:?? * Procedure Codes:?? Care Plan Details* * Sign off status: Pending * Provider:??JOSIANE VARGAS NP Date:??03/2025
--- OUTSIDE RECORDS SUMMARY | 2024-11-08 10:51 | XMS_ITS | Clinical Summary ---
Author Organization [facility] Address [address] [place] [address] Care Team Providers Care Numerical Control Machine Machinist Name Role Phone Cee Benitez MD Primary Care Provider [phone] Social History Tobacco Use Types Packs/Day Years Used Date Smoking Tobacco: Never Assessed Comments Unknown Sex and Gender Information Value Date Recorded Sex Assigned at Not on file Legal Sex Female 10:06 AM EST Gender Identity Not on file Sexual Orientation Not on file Plan of Treatment Health Maintenance Due Date Last Done Comments DTaP,Tdap,and Td Vaccines (1 - Tdap) 10/09/2010 Hepatitis B Vaccines (1 of 3 - 19+ 3-dose series) 10/09/2010 Cervical Cancer Screening: P ap Smear 12/12/2020 12/12/2017 Depression Screening 08/22/2023 HIV Screening 08/22/2023 Hepatitis C Screening 08/22/2023 Social Influencers of Health Screening 08/22/2023 COVID-19 Vaccine (2023-2 5 season) 2024 Influenza Vaccine (Season Ended) 2025 HIB Vaccines Aged Out No longer eligi ble based on patient's age to complete this topic HPV Vaccines Aged Out No longer eligi ble based on patient's age to complete this topic Hepatitis A Vaccines Aged Out No long er eligible based on patient's age to complete this topic IPV Vaccines Aged Out No longer eligi ble based on patient's age to complete this topic MMR Vaccines Aged Out No longer eligi ble based on patient's age to complete this topic Meningococcal ACWY Vaccine Aged Out N o longer eligible based on patient's age to complete this topic Meningococcal B Vaccine Aged Out No l onger eligible based on patient's age to complete this topic Pneumococcal Vaccine: Pediat rics (0 to 5 Years) and At-Risk Patients (6 to 64 Years) Aged Out No longer eligi ble based on patient's age to complete this topic RSV Immunization Patients Un mark 20 months Aged Out No longer eligible b ased on patient's age to complete this topic Varicella Vaccines Aged Out No longer eligible based on patient's age to complete this topic Procedures Procedure Name Priority Date/Time Associated Diagnosis Comments PAP SMEAR Routine 12/12/2017 from Last 3 Months or Most Recently Relevant to Health Maintenance Results * Pap smear (12/12/2017) 12/12/2017 Narrative HISTORICAL TESTING LAB RESULTING AGENCY - 12/22/2017 1:38 PM EDT [id number] THINPREP PAP, IMAGED: ATYPICAL SQUAMOUS CELLS OF UNDETERMINED SIGNIFICANCE (ASCUS) ??. RESULTS OF APTIMA HIGH RISK HPV ASSAY: ? NEGATIVE ?(SEROTYPES 16,18,31,33,35, 39,45,51,52,56,58,59,66,68) ANGEL BRENNAN(ASCP) (CASE SCREENED 12 14 2017) DYLAN LINARES M.D., PATHOLOGIST (CASE ELECTRONICALLY SIGNED 12 21 2017) ADEQUACY: SATISFACTORY. ENDOCERVICAL/TRANSFORMATION ZONE COMPONENT PRESENT. SOURCE: THINPREP PAP HPV IF ASCUS, CERVICAL, IMAGED: CLINICAL INFORMATION: HPV IF DIAGNOSIS OF ASCUS. Z12.4, Z01.419 us Ruslan Galeana MD LAB CYTOLOGY ORDERABLES Final Result HISTORICAL TESTING LAB RESULTING AGENCY from Last 3 Months or Most Recently Relevant to Health Maintenance Care Teams Numerical Control Machine Machinist Relationship Specialty Start Date End Date Cee Benitez MD PCP - General Internal Medicine 05/20/22
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
--- OUTSIDE RECORDS SUMMARY | 2024-11-08 10:51 | XMS_ITS ---
Author Organization [employer] [facility] Address [address] [place] [address] Care Team Providers Care Science Consultant Name Role Phone JOSIANE VARGAS Unavailable [phone] REASON FOR VISIT callback Encounters Encounter Location Date Provider Diagnosis [facility] [address] [phone] 07/09/2024 JOSIANE VARGAS PLAN OF TREATMENT No Information Progress Notes * Tika MENEZESDOB:1990 (33 yo F)Acc No.[id number]:07/09/2024 Patient:??RIRIDl MAJANOiana :1990?Age:33 Y?Sex:Fe male Address:[address] [place] [phone] * true * Date:??
== END 2024-11-08 11:25 | disposition home or self-care (01) ==
LOC: HO.HMCH 10:03
DX: J45.909 Unspecified asthma, uncomplicated (principal); F31.81 Bipolar II disorder; D32.9 Benign neoplasm of meninges, unspecified; N39.0 Urinary tract infection, site not specified; E03.9 Hypothyroidism, unspecified; F41.9 Anxiety disorder, unspecified; I10 Essential (primary) hypertension

== ENCOUNTER → 2024-11-08 10:03 | Outpatient (BNVA) | payer OTHER, SELFPAY | DX: M79.7 Fibromyalgia (principal); F90.9 Attention-deficit hyperactivity disorder, unspecified type; F41.9 Anxiety disorder, unspecified; E87.6 Hypokalemia; R51.9 Headache, unspecified; I10 Essential (primary) hypertension; J45.909 Unspecified asthma, uncomplicated; N39.0 Urinary tract infection, site not specified; E03.9 Hypothyroidism, unspecified; F31.81 Bipolar II disorder; D32.9 Benign neoplasm of meninges, unspecified; Z87.440 Personal history of urinary (tract) infections | CPT/HCPCS: 96127; 99202 ==

== ENCOUNTER 2024-11-18 12:23 | Outpatient (RCR) | payer OTHER, SELFPAY ==
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
== END 2024-11-18 23:59 | disposition home or self-care (01) ==
LOC: HO.PHPA 12:23
PROVIDERS: Visit Provider Psychiatry & Neurology Psychiatry
DX: F33.2 Major depressive disorder, recurrent severe without psychotic features (principal); F41.1 Generalized anxiety disorder; F43.10 Post-traumatic stress disorder, unspecified; F12.90 Cannabis use, unspecified, uncomplicated
CPT/HCPCS: 90791

== ENCOUNTER 2024-12-19 14:51 | Outpatient (AMB) | payer OTHER, SELFPAY ==
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
[2024-12-19 15:07] VITALS: BP 112/76; PULSE 88; TEMP 36.9; O2SAT 98; BMI 25.2
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
== END 2024-12-19 15:56 | disposition home or self-care (01) ==
LOC: HO.HMCH 14:52
DX: M79.7 Fibromyalgia (principal); F31.81 Bipolar II disorder; E03.9 Hypothyroidism, unspecified; F41.9 Anxiety disorder, unspecified

== ENCOUNTER → 2024-12-19 14:51 | Outpatient (BNVA) | payer OTHER, SELFPAY | DX: M79.7 Fibromyalgia (principal); F31.81 Bipolar II disorder; E03.9 Hypothyroidism, unspecified; F41.9 Anxiety disorder, unspecified; Z79.899 Other long term (current) drug therapy | CPT/HCPCS: 96127; 99212 ==

== ENCOUNTER 2025-03-07 16:13 | Outpatient (AMB) | payer OTHER, SELFPAY ==
--- OUTSIDE RECORDS SUMMARY | 2025-03-07 16:15 | XMS_ITS | Patient Health Record ---
Author Organization [facility] [address] [place] [address] Care Team Providers Care Metalworking Specialist Name Role Phone JOSIANE VARGAS Unavailable [phone] Allergies Allergen (clinical drug ingredient) Drug/Non Drug Allergy documented on EMR Reaction Allergy Type Onset Date Status metoclopramide Reglan rash Drug Allergy Ac tive Compazine hives Drug Allergy Active Results Component Value Reference Range Notes FERRITIN Reviewed date:03/28/2024 05:15:03 PM Interpretation: Performing Lab: Notes/Report: FERRITIN 39 8-252 ng/mL Note Twitter, a member of [address] [address] Child Care Development Specialist - Abby Hodgson MD TOTAL IRON BINDING CAPACITY Reviewed date:03/28/2024 05:15:03 PM Interpretation: Performing Lab: Notes/Report: Note Original Orderi ng Provider: JOSIANE VARGAS NP TOTAL IRON BINDING CAPACITY 328 250-450 ug/dL IRON (FE) 53 40-150 ug/dL % FE SATURATION 16 15-50 % CBC WITH AUTO DIFF Reviewed date:03/28/2024 01:31:54 PM Interpretation: Performing Lab: Notes/Report: Original Ordering Provider: JOSIANE VARGAS NP Twitter, a member of [facility] [address] [place] [address] Child Care Development Specialist - Abby Hodgson MD WBC 11.5 4.8-10.8 x10-3/uL RBC 4.4 3.8-4.8 [...] x10-3/uL IMMATURE GRANULOCYTES # 0.04 0-0.03 x10-3/uL Reason For Referral No Information Medications Medication SIG (Take, Route, Fr equency, Duration) Notes Start Date End Date Status Mounjaro 2.5 MG/0.5ML 2.5mg Subcutaneous weekly; Duration: 30 days Active Pregabalin 25 MG 1 capsule Orally twi ce a day; Duration: 30 days Active Mounjaro 2.5 MG/0.5ML INJECT 2.5MG SUBCU TANEOUSLY WEEKLY Active Ferrous Sulfate 325 (65 Fe) MG 1 tablet Orally daily; Duration: 90 days 03/28/2024 Active Immunizations Vaccine Route Administration Date Status Comme nts COVID 19 VACCINE IM Intramuscular 05/16/2023 Administered Social History Tobacco Use: Social History Observation Description Date Details (start date - stop date) Former Smoker NA - NA Tobacco Use/Smoking Question Answer Notes Are you a former smoker Section Notes: Tob: Former tobacco abuse ETOH: None Medical Marijuana license, vape pen- weed Originally from [place] Tob: Not currenty ETOH: None Medical Marijuana license Tob: Not currenty ETOH: None Medical Marijuana license Tob: Former tobacco abuse ETOH: None Medical Marijuana license, vape pen- weed Originally from [place] Tob: Former tobacco abuse ETOH: None Medical Marijuana license, vape pen- weed Originally from [place] Tob: Not currenty ETOH: None Medical Marijuana license Tob: Former tobacco abuse ETOH: None Medical Marijuana license, vape pen- weed Originally from [place] Tob: Former tobacco abuse ETOH: None Medical Marijuana license, vape pen- weed Originally from [place] Tob: Not currenty ETOH: None Medical Marijuana license Tob: Not currenty ETOH: None Medical Marijuana license Tob: Not currenty ETOH: None Medical Marijuana license Tob: Former tobacco abuse ETOH: None Medical Marijuana license, vape pen- weed Originally from [place] Tob: Not currenty ETOH: None Medical Marijuana license Tob: Not currenty ETOH: None Medical Marijuana license Tob: Not currenty ETOH: None Medical Marijuana license Tob: Not currenty ETOH: None Medical Marijuana license Tob: Not currenty ETOH: None Medical Marijuana license Problems Problem Type SNOMED Code ICD Code Onset Dates Problem Status W/U Status Risk Notes Problem Vitamin D deficiency (62588564) Vitamin D deficiency, unspecified (E55.9) Active confirmed Problem Obesity (810388124) Other obesity (E66.8) Active confirmed Problem Mixed hyperlipidemia (594187562) Mixed hyperlipidemia (E78.2) Active confirmed Problem Postmenopausal bleeding (51032542) Postmenopausal bleeding (N95.0) Active confirmed Problem Diabetes mellitus screening (130054631) Encounter for screening for diabetes mellitus (Z13.1) Active confirmed Problem Screening for cardiovascular system disease (391860916) Encounter for screening for cardiovascular disorders (Z13.6) Active confirmed Problem Hyperlipidaemia (52898460) Hyperlipidemia, unspecified hyperlipidemia type (E78.5) Active confirmed Problem Anxiety (99753825) Anxiety (F41.9) Active confi rmed Problem Hyperlipoproteinemia (5187727) 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) Active confirmed Problem Hypothyroidism (83512228) Hypothyroidism, unspecified type (E03.9) Active confirmed Problem Bipolar 1 disorder (622213693) Bipolar 1 disorder (F31.9) Active confirmed Problem Obese class I (finding) (360925391251057) Obesity (BMI 30.0-34.9) (E66.9) Active confirmed Problem Pain of knee region (finding) (9465911918) Knee pain, unspecified chronicity, unspecified laterality (M25.569) Active confirmed Problem Gastroesophageal reflux disease without esophagitis (801591796) Gastroesophageal reflux disease without esophagitis (K21.9) Active confirmed Problem Body mass index 30.0 0 to 34.99 (712707944238577) Body mass index [BMI] 32.0-32.9, adult (Z68.32) Active confirmed Problem Hot flashes (288563478) Hot flashes (R23.2) Active confirmed Problem Body mass index 30.0 0 to 34.99 (781096847583345) BMI 31.0-31.9,adult (Z68.31) Active confirmed Problem Body mass index 30+ - obesity (927951427) BMI 30.0-30.9,adult (Z68.30) Active confirmed Problem Stress (59603008) Stress (F43.9) Active confirm ed Problem Breast cancer screening (408166002) Encounter for screening mammogram for breast cancer (Z12.31) Active confirmed Problem Cough (31914261) Cough (R05.9) Active confirmed Problem Bipolar disorder (71509223) Bipolar 1 disorder, depressed (F31.9) Active confirmed Problem Excessive and frequent menstruation (048924854) Menorrhagia with regular cycle (N92.0) Active confirmed Problem Asthma (734681270) Asthma (J45.909) Active conf irmed Problem Acute pharyngitis (205391322) Acute sore throat (J02.9) Active confirmed Problem Tension headache (775090404) Tension headache (G44.209) Active confirmed Vital Signs Heart Rate 86 /min 03/28/2024 Oximetry 99 % 03/28/2024 Blood pressure diastolic 60 mm Hg 03/28/2024 Height 61 in 03/28/2024 Blood pressure systolic 100 mm Hg 03/28/2024 Weight 127 lbs 03/28/2024 BMI 23.99 kg/m2 03/28/2024 Encounters Encounter Location Date Provider Diagnosis [facility] [address] [address] 04/25/2024 JOSIANE VARGAS [facility] [address] [address] 03/28/2024 JOSIANE VARGAS BMI 25.0-25.9,adult Z68.25 ; Overweight (BMI 25.0-29.9) E66.3 ; Dietary counseling and surveillance Z71.3 ; Bipolar 1 disorder F31.9 ; Hypothyroidism, unspecified type E03.9 and Menorrhagia with regular cycle N92.0 [facility] [address] [address] 03/27/2024 JOSIANE BORJABIERT Overweight (BMI 25.0-29.9) E66.3 [facility] [address] [facility] [address] [place] [address] 03/28/2024 JOSIANE BORHOT [facility] [address] [address] 04/04/2024 JOSIANE YESSYHOT Overweight (BMI 25.0-29.9) E66.3 [facility] [address] [facility] [address] [place] [address] 04/20/2024 JOSIANE BORHOT [facility] [address] [address] 04/24/2024 JOSIANE BORHOT [facility] [address] [facility] [address] [place] [address] 04/25/2024 JOSIANE BORHOT [facility] [address] [address] 07/09/2024 JOSIANE BORHOT [facility] [address] [place] [address] 08/05/2024 JOSIANE VANESAT Assessments Encounter Date Diagnosis (ICD Code) Assessment Notes Treatment Notes Treatment Clinical Notes Section Notes 03/27/2024 Overweight (BMI 25.0-29.9) (ICD-10 - E66.3) [...] minimum of 6 months The most recent [place] [employer] of clinical endocrinologists and [place] [employer] of endocrinology guidelines recommend patients who [...] track activity level. Consider using apps like Postmates, myfitnesspal, lose it, stick as needed for self-monitoring and weight management. Consider group exercises. Consider hiring a personal lines sales executive. Regular exercise is berrios to sustainable [...] counseling and psychiatry and Dr Jarrell at [facility]. We would like to cover regular topics [...] software and direct typing Please excuse inadvertent senior medical transcriptionist or typing errors, or uncorrected word substitutions Although every attempt has been made by the provider to proofread this document, occasional misspellings and typographical errors may still be present Due to the previous pandemic, and the use of personal protective equipment (PPE) This may decrease voice recognition accuracy Inadvertent senior medical transcriptionist errors may occur 04/04/2024 Overweight (BMI 25.0-29.9) [...] minimum of 6 months The most recent [place] [employer] of clinical endocrinologists and [place] [employer] endocrin[employer] guidelines recommend patients who [...] track activity level. Consider using apps like [employer], myfitnesspal, lose it, stick as needed for self-monitoring and weight management. Consider group exercises. Consider hiring a personal lines sales executive. Regular exercise is berrios to sustainable [...] counseling and psychiatry and Dr Jarrell at [facility]. We would like to cover regular topics [...] software and direct typing Please excuse inadvertent senior medical transcriptionist or typing errors, or uncorrected word substitutions Although every attempt has been made by the provider to proofread this document, occasional misspellings and typographical errors may still be present Due to the previous pandemic, and the use of personal protective equipment (PPE) This may decrease voice recognition accuracy Inadvertent senior medical transcriptionist errors may occur 03/28/2024 Dietary counseling and [...] minimum of 6 months The most recent [place] [employer] of clinical endocrinologists and [place] [employer] endocrinology guidelines recommend patients who [...] track activity level. Consider using apps like [employer], myfitnesspal, lose it, stick as needed for self-monitoring and weight management. Consider group exercises. Consider hiring a personal lines sales executive. Regular exercise is berrios to sustainable [...] counseling and psychiatry and Dr Jarrell at [facility]. We would like to cover regular topics [...] software and direct typing Please excuse inadvertent senior medical transcriptionist or typing errors, or uncorrected word substitutions Although every attempt has been made by the provider to proofread this document, occasional misspellings and typographical errors may still be present Due to the previous pandemic, and the use of personal protective equipment (PPE) This may decrease voice recognition accuracy Inadvertent senior medical transcriptionist errors may occur 03/28/2024 Bipolar 1 disorder [...] minimum of 6 months The most recent [place] [employer] of clinical endocrinologists and [place] [employer] of endocrinology guidelines recommend patients who [...] track activity level. Consider using apps like [employer]mates, [employer]vill[employer], lose it, stick as needed for self-monitoring and weight management. Consider group exercises. Consider hiring a personal lines sales executive. Regular exercise is berrios to sustainable [...] counseling and psychiatry and Dr Jarrell at [facility]. We would like to cover regular topics [...] software and direct typing Please excuse inadvertent senior medical transcriptionist or typing errors, or uncorrected word substitutions Although every attempt has been made by the provider to proofread this document, occasional misspellings and typographical errors may still be present Due to the previous pandemic, and the use of personal protective equipment (PPE) This may decrease voice recognition accuracy Inadvertent senior medical transcriptionist errors may occur 03/28/2024 Hypothyroidism, unspecified type [...] minimum of 6 months The most recent [place] [employer] of clinical endocrinologists and [place] [employer] of endocrinology guidelines recommend patients who [...] track activity level. Consider using apps like [employer]mates, [employer], lose it, stick as needed for self-monitoring and weight management. Consider group exercises. Consider hiring a personal lines sales executive. Regular exercise is berrios to sustainable [...] counseling and psychiatry and Dr Jarrell at [facility]. We would like to cover regular topics [...] software and direct typing Please excuse inadvertent senior medical transcriptionist or typing errors, or uncorrected word substitutions Although every attempt has been made by the provider to proofread this document, occasional misspellings and typographical errors may still be present Due to the previous pandemic, and the use of personal protective equipment (PPE) This may decrease voice recognition accuracy Inadvertent senior medical transcriptionist errors may occur 03/28/2024 Menorrhagia with regular [...] minimum of 6 months The most recent [place] Association of clinical endocrinologists and [place] [employer] of endocrinology guidelines recommend patients who [...] track activity level. Consider using apps like [employer]mates, [employer], lose it, stick as needed for self-monitoring and weight management. Consider group exercises. Consider hiring a personal lines sales executive. Regular exercise is berrios to sustainable [...] counseling and psychiatry and Dr Jarrell at [facility]. We would like to cover regular topics [...] software and direct typing Please excuse inadvertent senior medical transcriptionist or typing errors, or uncorrected word substitutions Although every attempt has been made by the provider to proofread this document, occasional misspellings and typographical errors may still be present Due to the previous pandemic, and the use of personal protective equipment (PPE) This may decrease voice recognition accuracy Inadvertent senior medical transcriptionist errors may occur Plan Of Treatment Pending Test Test Name Order Date MAMMOGRAM, SCREENING 07/27/2023 XR Chest 2 Views 04/26/2022 XR Foot 2 Views RT 09/05/2022 XR Knee 1-2 Views LT 04/26/2022 XR Knee 3 Views LT 04/12/2022 LIPID PANEL, STANDARD 02/01/2023 LIPID PANEL, STANDARD 03/21/2022 IRON, TIBC AND FERRITIN PANEL 03/28/2024 COMPREHENSIVE METABOLIC PANEL 03/21/2022 COMPREHENSIVE METABOLIC PANEL 02/01/2023 CBC (INCLUDES DIFF/PLT) 02/01/2023 CBC (INCLUDES DIFF/PLT) 03/21/2022 CBC (INCLUDES DIFF/PLT) 03/28/2024 URINALYSIS, COMPLETE 03/21/2022 URINALYSIS, COMPLETE 02/01/2023 HEMOGLOBIN A1c 02/01/2023 HEMOGLOBIN A1c 03/21/2022 VITAMIN B12 03/21/2022 T4, FREE 03/21/2022 T4 (THYROXINE), TOTAL 02/01/2023 TSH 03/21/2022 TSH 02/01/2023 VITAMIN D,25-OH,TOTAL,IA 03/21/2022 VITAMIN D,25-OH,TOTAL,IA 02/01/2023 Chest Min 4 Views 04/12/2022 Insurance Providers Payer Name Payer Address Payer Phone Subscriber Number Group Number Insured Name Patient Relationship to Insured Coverage Start Date Coverage End Date [employer] or Options [address] [place] [address] [id number] Tika Meyer Self - patient is the insured Medications Administered Medication Instructions Date of Administration Dosage Notes MICC B12 INJECTION 04/26/2022 lot # [id number] MICC B12 INJECTION 05/04/2022 lot # [id number] MICC B12 INJECTION 05/19/2022 1 Lot #: [id number] MICC B12 INJECTION 09/05/2022 [id number] MICC B12 INJECTION 09/19/2022 1 mL Lot [id number] MICC B12 INJECTION 09/29/2022 lot # [id number] MICC B12 INJECTION 10/11/2022 lot # [id number] MICC B12 INJECTION 02/01/2023 lot # [id number] MICC B12 INJECTION 02/14/2023 1 MICC B12 INJECTION 04/18/2023 MICC B12 INJECTION 04/25/2023 LLQ SQ MICC B12 INJECTION 05/09/2023 1 mL MICC B12 INJECTION 05/16/2023 lot#[id number] MICC B12 INJECTION 06/20/2023 1ml MICC B12 INJECTION 07/19/2023 1 mL Semaglutide 04/11/2023 0.25 mg LRQ SQ Semaglutide 04/18/2023 0.25 mg Semaglutide 04/25/2023 0.5 mg LLQ SQ Semaglutide 05/09/2023 0.25 mL Semaglutide 05/16/2023 lot#[id number] 0.5mg Semaglutide 06/20/2023 .25 Semaglutide 07/19/2023 0.25 mg Medical (General) History Medical History History ICD Code Asthma J45.909 [...]
--- NOTE | 2025-03-07 16:16 | MHC.PC.OV ---
Vital Signs 03/07/25 16:18 Height 4 ft 11 in Weight 131 lb 4 oz BMI 26.5 BP 112/66 Blood Pressure Location Lt brachial Position Sitting Respiration 18 Pulse 94 Pulse Source Pulse Oximeter Temp 97.3 F Temp Source Temporal Artery Scan Pulse Oximetry (%) 98 Oxygen Delivery Method Room Air Intake Visit Reasons: liposuction and breast implant-see comm Laboratory Operations Coordinator Required: No Accompanied by: Self / Same As Patient Allergies ketorolac (From TORADOL) Allergy (Severe, Verified 03/07/25 16:31) ANAPHYLAXIS metoclopramide (From REGLAN) Allergy (Severe, Verified 03/07/25 16:19) ANAPHYLAXIS prochlorperazine (From COMPAZINE) Allergy (Severe, Verified 03/07/25 16:19) ANAPHYLAXIS Medication List - Last Reconciled 03/07/25 by CHAZ De Paz albuterol sulfate 90 mcg/actuation 2 puffs inhalation Q4-6H PRN clonazepam 1 mg PO BEDTIME PRN dextroamphetamine-amphetamine 10 mg 1 tab PO TID dextroamphetamine-amphetamine 20 mg ER 1 cap PO QAM doxycycline monohydrate 100 mg PO BID epinephrine (EpiPen 2-Osito) 0.3 mg (0.3 mL) IM Q10M PRN levothyroxine 88 mcg PO DAILY lidocaine 5% 1 patch topical DAILY 7 days pregabalin (Lyrica) 75 mg PO BID sumatriptan succinate take 1 tab at onset of headache; if no relief may repeat 1 tab after at least 2 hrs; max = 4 tabs/24 hr PO tirzepatide (Mounjaro) 2.5 mg subcut .Q2week trazodone 250 mg PO BEDTIME Tobacco use date assessed: 12/19/24 Dental Screening Dental Screen Date: 03/07/25 Did you have a dental visit in the last 12 months?: No Did you have a dental problem in the last 6 months where you did not have access to dental care?: No Was dental information given to patient?: No HPI liposuction and breast implant-see comm HPI Details The patient is a 34-year-old female presenting for preop clearance. The patient is scheduled for liposuction, breast implants with lift. She will be getting veneers done two days before surgery. The patient will be having her surgery completed at [address], [place], [address] [place] [address]. , Date: April 01, 2025 Surgeon: Dr. Anjel Hawley Patient is certain requires her getting the CBC, CMP, hCG, HIV, PT, PTT, INR, and urinalysis, an EKG, and breast ultrasound. Her family history is significant for breast cancer on both her mother's and grandmother's sides. The patient has a past surgical history of hernia repair and reports no known allergies to anesthesia, although she has experienced waking during a procedure in the past. Anesthesia: General. No known side effects of anesthesia. Patient denies any post surgery hypothermia or clotting disorder and she is not on any blood thinners. The patient medical history is significant for HTN, ANXIETY, bipolar 2 disorder, hypothyroidism, asthma, and fibromyalgia, meningioma. The patient denies chest pain, shortness of breath, heart palpitation and dizziness. The patient is requesting a new referral for a new psychiatrist and neurologist referral for memory impairment. [facility] Medical History Meningioma Asthma Hypothyroidism Bipolar 2 disorder Fibromyalgia Surgical History History of hernia surgery Family History Other Mental health disorder Social History Household Members: None Housing: Apartment Alcohol intake: current Alcohol intake frequency: holidays/special occasions only Patient Tobacco Use Status: Former Tobacco user e-Cigarette/Vaping Use: Currently Using Second Hand Smoke Exposure: No Substance Use Type: Marijuana service: No Current occupational status: disabled Cognitive needs: No Hearing needs: No Vision needs: No Questionnaire PHQ-9 Over the last 2 weeks, how often have you been bothered by any of the following problems? 1. Little interest or pleasure in doing things: several days 2. Feeling down, depressed, or hopeless: several days 3. Trouble falling or staying asleep, or sleeping too much: more than half the days 4. Feeling tired or having little energy: several days 5. Poor appetite or overeating: several days 6. Feeling bad about yourself - or that you are a failure or have let yourself or your family down: not at all 7. Trouble concentrating on things, such as reading the newspaper or watching television: more than half the days 8. Moving or speaking so slowly that other people could have noticed. Or the opposite - being so fidgety or restless that you have been moving around a lot more than usual: not at all 9. Thoughts that you would be better off or of hurting yourself in some way: not at all Total score: 8 Source: Developed by Drs. German Malone, Cande Marcelo, Mark Cooney and colleagues, with an educational tasha from [employer]. Thrive Questionnaire Date Thrive assessed: 03/07/25 I am a: Patient What is your living situation today?: I have a steady place to live Within the past 12 months, did the food you bought not last and you didn't have the money to get more?: Never true Within the past 12 months, did you worry whether your food would run out before you got money to buy more?: Never true Do you have trouble paying for medicines?: No Do you have trouble getting transportation to medical appointments?: No Do you have trouble paying your heating and electricity bill?: No Do you have trouble taking care of your child, family member or friend?: No Do you have trouble with day-to-day activities such as bathing, preparing meals, shopping, managing finances, etc.?: Yes Are you currently unemployed and looking for a job?: I choose not to answer this question Are you interested in more education?: I choose not to answer this question Please select the resources that you would like help with: None THRIVE Score: 0 AUDIT C Alcohol Use Questionnaire (AUDIT-C) 1. How often do you have a drink containing alcohol?: Never 3. How often do you have six or more drinks on one occasion?: Never Total Score: 0 LAMONT-7 AMB Questionnaire LAMONT-7 Date LAMONT - 7 assessed: 03/07/25 Feeling nervous, anxious, or on edge: 1 = Several days Not being able to stop or control worryin = Not at all Worrying too much about different things: 1 = Several days Trouble relaxin = Several days Being so restless that it is hard to sit still: 1 = Several days Becoming easily annoyed or irritable: 1 = Several days Feeling afraid as if something awful might happen: 0 = Not at all Total LAMONT-7 score (0-4 normal; 5-9 mild; 10-14 moderate; 15-21 severe): 5 Source: Developed by Drs. German Malone, Cande Marcelo, Mark Cooney and colleagues, with an educational tasha from [employer]. Review of Systems Const Reports headache(s) (ON AND OFF) Eyes Denies loss of vision ENT Denies vertigo, Denies dizziness, Reports headache(s) (ON AND OFF) and Denies sore throat Card Denies chest pain, Reports rapid heart rate (Intermittent attributed to anxiety), Denies leg edema and Denies lightheadedness Resp Denies cough, Denies hemoptysis and Denies wheezing GI Denies abdominal pain, Denies melena, Reports constipation (On and off-poor p.o. intake), Denies diarrhea and Denies vomiting Denies urinary frequency, Denies dysuria and Denies urinary urgency Musc Reports arthralgias (Multiple joints (knees and finger joints)), Denies joint swelling, Denies numbness and Denies tingling Neuro Denies Abnormal speech present, Denies behavioral changes, Denies vertigo, Denies dizziness, Reports headache(s) (ON AND OFF), Denies loss of vision, Denies memory loss, Denies numbness and Denies tingling Psych Reports anxiety, Denies behavioral changes, Denies depression, Denies memory loss, Reports mood swings and Denies panic attacks Willian/Lymph Denies easy bleeding and Denies easy bruising Aller/Immun Denies wheezing Physical exam (Primary Care) Vital Signs: Last Vital Signs Temp 97.3 F 03/07/25 16:18 Pulse 94 03/07/25 16:18 Resp 18 03/07/25 16:18 BP 112/66 03/07/25 16:18 Pulse Ox 98 03/07/25 16:18 Oxygen Delivery Method Room Air 03/07/25 16:18 BMI result Body Mass Index 26.5 Tobacco/Smoking Status: Tobacco use Status Tobacco use date assessed 12/19/24 03/07/25 16:17 Patient Tobacco Use Status Former Tobacco user 03/07/25 16:17 e-Cigarette/Vaping Use Currently Using 03/07/25 16:17 PHQ-9: PHQ-9 Score PHQ-9: Total score 8 03/07/25 16:37 Thrive Assessment: Date of Thrive Assessment Date Thrive assessed 03/07/25 03/07/25 16:28 Const General: healthy appearing, no acute distress, alert and awake Nutritional Appearance: well nourished Orientation/consciousness: oriented to person, oriented to place and oriented to time HENMT Ears: TM's normal bilaterally General nose exam: Normal nasal mucous membranes and turbinates present Eyes Conjunctivae: conjunctivae normal Sclerae: sclerae normal Pupils: Equal, round and reactive pupils present Neck Neck: Yes no lymphadenopathy and Yes no JVD Thyroid: Thyroid normal Carotids: no bruits Resp Effort & Inspection: normal respiratory effort and not tachypneic Auscultation: no crackles, no rales, no rhonchi and no wheezes Cardio Rate: regular rate Rhythm: regular rhythm Heart sounds: no murmurs and normal S1 and S2 GI Palpation (GI): Soft to palpation, nontender, no hepatomegaly and no splenomegaly Auscultation: normal bowel sounds General: Yes no CVA tenderness Back/Spine/Pelvis Back: no CVA tenderness Thoracic/Lumbar Spine: No lumbar spinal tenderness Skin General skin exam: no rashes or lesions noted and dry skin Neuro General: oriented to person, oriented to place and oriented to time Cranial nerves: Yes Equal, round and reactive pupils present Speech: No Abnormal speech present Gait exam (Neuro): Normal gait present Motor exam (neuro): no tremor noted Extrem Right upper extremity: full ROM and Extremity exam: right hand Details: normal to inspection Left upper extremity: full ROM and hand Details: normal to inspection Right lower extremity: full ROM and knee Details: no tenderness and no swelling; no edema Left lower extremity: full ROM and knee Details: no tenderness and no swelling; no edema Psych Mental Status: mental status grossly normal Speech and movement: Normal speech and movement present Affect: normal affect Attitude: cooperative Thought process: Normal thought process present Coding Level of Care Code Est Pt Level 4 (71912) Diagnoses Preoperative clearance Z01.818 Hypertension, unspecified type I10 Hypertension type: unspecified Hypothyroidism, unspecified type E03.9 Hypothyroidism type: unspecified Meningioma D32.9 Asthma, unspecified asthma severity, unspecified whether complicated, unspecified whether persistent J45.909 Asthma complication type: unspecified Asthma persistence: unspecified Asthma severity: unspecified severity Anxiety F41.9 Bipolar 2 disorder F31.81 Fibromyalgia M79.7 Encounter for breast cancer screening using non-mammogram modality Z12.39 Breast cancer screening modality: non-mammogram Family history of breast cancer Z80.3 Time Spent (min) 43 Assessment & Plan Assessment & Plan (1) Preoperative clearance: Code(s): Z01.818 - Encounter for other preprocedural examination Category: Medical Plan: Regarding preop clearance, the patient is at acceptable risk for proposed surgery upon completing blood labs, ekg, and Breast US with acceptable findings. Reviewed with the patient that no surgery is completely free of risk and that this examination is to assist the surgeon in reviewing informed consent. (2) HTN (hypertension): Code(s): I10 - Essential (primary) hypertension Category: Medical Qualifiers: Hypertension type: unspecified Qualified Code(s): I10 - Essential (primary) hypertension Plan: Pressure 112/66-goal is less than 120 mmHg Reinforced low-salt diet (3) Hypothyroidism: Code(s): E03.9 - Hypothyroidism, unspecified Category: Medical Qualifiers: Hypothyroidism type: unspecified Qualified Code(s): E03.9 - Hypothyroidism, unspecified Plan: Continue levothyroxine 88 mcg daily Thyroid function tests ordered (4) Meningioma: Code(s): D32.9 - Benign neoplasm of meninges, unspecified Category: Medical Plan: Remote history of meningioma. The patient was referred to Neurology for further evaluation and has an upcoming appointment. No neurological deficit noted. (5) Asthma: Code(s): J45.909 - Unspecified asthma, uncomplicated Category: Medical Qualifiers: Asthma complication type: unspecified Asthma persistence: unspecified Asthma severity: unspecified severity Qualified Code(s): J45.909 - Unspecified asthma, uncomplicated Plan: Lifestyle modifications like smoking cessation. Wear a mask when around irritants, fumes, or particulate matter (e.g., painting, lawn mowing). Increase humidification at home, especially in the winter. Annual flu shots and the pneumonia shot can mitigate exacerbation. Increase fluids if not contraindicated because of heart failure. Continue albuterol sulfate 90 mcg/actuation 2 puffs inhalation q.4-6 hours p.r.n. (6) Anxiety: Code(s): F41.9 - Anxiety disorder, unspecified Category: Medical Plan: Encouraged CBT Continue clonazepam 1 mg p.r.n. at bedtime Follow up with Psychiatry as scheduled. The patient is requesting a referral to a new psychiatrist due to the expense of her current provider (7) Bipolar 2 disorder: Code(s): F31.81 - Bipolar II disorder Category: Medical Plan: Continue trazodone 250 mg at bedtime follow up with psychiatry as scheduled The patient reports that she has been stable but would like to new referral (8) Fibromyalgia: Code(s): M79.7 - Fibromyalgia Category: Medical Plan: Increase physical activity, aerobic exercise, strength training, yoga etc,. That is proven to decrease the symptoms of fibromyalgia. The patient was on duloxetine 40 mg daily but has since stopped this medication. She was referred to Rheumatology for further evaluation on her previous visit. (9) Breast cancer screening: Code(s): Z12.39 - Encounter for other screening for malignant neoplasm of breast Category: Medical Qualifiers: Breast cancer screening modality: non-mammogram Qualified Code(s): Z12.39 - Encounter for other screening for malignant neoplasm of breast Plan: Bilateral breast ultrasound ordered to evaluate the patient for breast cancer. Pre-breast augmenting surgery (10) Family history of breast cancer: Code(s): Z80.3 - Family history of malignant neoplasm of breast Category: Medical Plan: Both paternal and maternal grandmothers were diagnosed with breast cancer. Patient's surgeon requires bilateral breast ultrasound before proceeding with surgery. Orders: Orders HIV Ab/Ag 03/07/25 Z01.818 - Encounter for other preprocedural examination US breast LT complete 03/07/25 Z01.818 - Encounter for other preprocedural examination, Z12.39 - Encounter for other screening for malignant neoplasm of breast, Z80.3 - Family history of malignant neoplasm of breast HCG Quantitative 03/07/25 Z01.818 - Encounter for other preprocedural examination Prothrombin Time INR 03/07/25 Z01.818 - Encounter for other preprocedural examination ECG 12 lead EKG 03/07/25 Z01.818 - Encounter for other preprocedural examination US breast RT complete 03/07/25 Z01.818 - Encounter for other preprocedural examination, Z12.39 - Encounter for other screening for malignant neoplasm of breast, Z80.3 - Family history of malignant neoplasm of breast Partial Thromboplastin Time Today Z01.818 - Encounter for other preprocedural examination Referrals Psychiatry Referral F31.81 - Bipolar II disorder, F41.9 - Anxiety disorder, unspecified
[2025-03-07 16:18] VITALS: BP 112/66; PULSE 94; RESP 18; TEMP 36.3; O2SAT 98; BMI 26.5
== END 2025-03-07 17:23 | disposition home or self-care (01) ==
LOC: HO.HMCH 16:13
DX: D32.9 Benign neoplasm of meninges, unspecified (principal); F31.81 Bipolar II disorder; Z01.818 Encounter for other preprocedural examination; I10 Essential (primary) hypertension; E03.9 Hypothyroidism, unspecified; J45.909 Unspecified asthma, uncomplicated; F41.9 Anxiety disorder, unspecified; M79.7 Fibromyalgia; Z12.39 Encounter for other screening for malignant neoplasm of breast; Z80.3 Family history of malignant neoplasm of breast

== ENCOUNTER → 2025-03-07 16:13 | Outpatient (BNVA) | payer OTHER, SELFPAY | DX: Z01.818 Encounter for other preprocedural examination (principal); I10 Essential (primary) hypertension; E03.9 Hypothyroidism, unspecified; D32.9 Benign neoplasm of meninges, unspecified; J45.909 Unspecified asthma, uncomplicated; F31.81 Bipolar II disorder; F41.9 Anxiety disorder, unspecified; M79.7 Fibromyalgia; Z80.3 Family history of malignant neoplasm of breast | CPT/HCPCS: 99212 ==

== ENCOUNTER 2025-03-11 11:33 | Outpatient (REF) | payer OTHER, SELFPAY ==
--- OUTSIDE RECORDS SUMMARY | 2024-08-01 06:00 | XMS_ITS ---
Author Organization [facility] [address] Address [address] [place] [address] Care Team Providers Care Veneer Sander Name Role Phone JOSIANE VARGAS Unavailable [phone] Encounters Encounter Location Date Provider Diagnosis [facility] [address] [address] 08/01/2024 JOSIANE VARGAS Plan Of Treatment No Information Progress Notes * Tika MENEZESDOB:1990 (34 yo F)Acc No.[id number]:08/01/2024 Progress Note Patient: Tika ANTONIO Provider: Francisco VARGAS NP :1990 A ge:33 Y S ex:Female Date:08/01/2024 Address:[address] [place], [place] [id number] Subjective: * Chief Complaints: * * Medical History: Objective: * Vitals: Assessment: Plan: * Treatment: * Images: Billing Information: * Visit Code: * Procedure Codes: Care Plan Details* * Electronic signature of MAN VARGAS on 03/11/2025 at 01:07 PM EDT Sign off status: Pending * Provider: Francisco VARGAS NP Date: 0 08/01/2024 Generated for Ayan cohen/Rylee/Reinaitting on: 03/11/2025 01:07 PM EDT
--- NOTE | 2025-03-11 11:39 | ECG_ITS ---
Test Reason : preop Blood Pressure : */* mmHG Vent. Rate : 72 BPM Atrial Rate : 72 BPM P-R Int : 164 ms QRS Dur : 78 ms QT Int : 372 ms P-R-T Axes : 66 17 41 degrees QTcB Int : 407 ms Normal sinus rhythm Normal ECG No previous ECGs available Referred By: Manjit Francois Electronically Signed By: CARIE ROBERTS MD
[2025-03-11 12:05] LABS: MANUAL DIFF FLAG NO
[2025-03-11 12:23] LABS: Hematocrit 41.6 % (37.0-47.0); Hemoglobin 13.4 g/dl (12.0-16.0); Imm Gran Abs Auto 0.05 X10*3/uL (0.00-0.03); Imm Gran Pct Auto 0.6 % (0.0-0.4); Lymphocytes Absolute Auto 2.1 X10*3/uL (1.2-4.9); Mean Corpuscular HGB Conc 32.2 g/dl (31.0-35.0); Mean Corpuscular Hemoglobin 27.4 pg (27.0-33.0); Mean Corpuscular Volume 85.1 fL (80.0-98.0); NRBC Abs Auto 0.000 X10*3/uL (0.0-0.012); NRBC Pct Auto 0.0 /100WBC (0.0-0.2); Platelet Count 484 X10*3/uL (160-400); Red Blood Count 4.89 X10*6/uL (4.20-5.50); White Blood Count 8.8 X10*3/uL (4.8-10.8)
[2025-03-11 12:26] LABS: INTERNATIONAL NORM RATIO 1.1 (0.9-1.1); Prothrombin Time 12.3 SEC (10.9-12.4)
[2025-03-11 12:29] LABS: Partial Thromboplastin Time 29.8 SEC (26.7-34.1)
[2025-03-11 12:39] LABS: Appearance Urine Clear; Glucose Urine UA Negative (Negative); PH 6.5 (5.0-9.0); Specific Gravity - Urine 1.025 (1.005-1.025); UMIC TRIGGER UACC YES
--- OUTSIDE RECORDS SUMMARY | 2025-03-11 13:07 | XMS_ITS | Clinical Summary ---
Author Organization [facility] Address [address] [place], [place] [id number] Phone Care Team Providers Care Silk Hanger Name Role Phone Pcp, Not Required Primary Care Provider Unavaila ble Allergies Active Allergy Reactions Criticality Noted Date Comments Ketorolac 12/17/2021 Metoclopramide Hcl 12/17/2021 Prochlorperazine 12/17/2021 Medications ARIPiprazole (ABILIFY) 2 MG tablet Take 2 mg by mouth every morning. 11/04/2021 Active lamoTRIgine (LAMICTAL) 200 MG IMMEDIATE release tablet TAKE 1 TABLET BY MOUTH EVERY DAY IN THE MORNING 09/26/2021 Active QUEtiapine (SEROQUEL) 200 MG tablet 12/09/2021 Active traZODone (DESYREL) 100 MG tablet TAKE 2 TABLETS BY MOUTH EVERY DAY AT BEDTIME 05/03/2021 Active doxepin (SINEQUAN) 25 MG capsule Take 25 mg by mouth nightly at bedtime. 12/01/2021 Active Active Problems No known active problems Social History Tobacco Use Types Packs/Day Years Used Date Smoking Tobacco: Former Cigarettes Smokeless Tobacco: Never Alcohol Use Standard Drinks/Week Comments Not Currently 0 (1 standard drink = 0.6 oz pur e alcohol) Education Answer Date Recorded Are you interested in more education? Not on can e 11/18/2022 Are you concerned about learning? Not on file 11/18/2022 No 11/18/2022 No 11/18/2022 Digital Access Answer Date Recorded No 12/16/2022 No 12/16/2022 No 12/16/2022 Reliable internet access at home? Not on file 12/16/2022 Device with a working camera? Not on file Comments Unknown Sex and Gender Information Value Date Recorded Sex Assigned at Not on file Legal Sex Female 9:00 PM EDT Gender Identity Not on file Sexual Orientation Not on file Plan of Treatment Health Maintenance Due Date Last Done Comments DEPRESSION SCREENING 2003 SMOKING Hx and SMOKELESS TOBACCO SCREENING 10/09/2004 HEPATITIS C SCREENING 10/09/2009 HIV ONE-TIME SCREENING (18-65 YEARS) 10/09/2009 PAP SMEAR 10/09/2012 Adult Td,Tdap Booster 05/29/2020 05/29/2010, 006 COVID-19 VACCINE ( season) 2024 07/02/2021, 12/25/2020, 11/21/2020 HIB VACCINES Completed 04/20/1994, 07/24, 05/14/1992, Additional history exists HEPATITIS A VACCINES Aged Out No long er eligible based on patient's age to complete this topic MENINGOCOCCAL VACCINES (ACWY) Aged Out No longer eligible based on patient's age to complete this topic MENINGOCOCCAL VACCINES (B) Aged Out N o longer eligible based on patient's age to complete this topic PNEUMOCOCCAL VACCINES (0-49 years) Aged Out No longer eligible based on patient's age to complete this topic Medical Devices Not on file Insurance [employer] ONE CARE MEDICARE REPLACEMENT JEREMIAH MORRISON [id number] [employer] ONE CARE MEDICARE REPLACEMENT CARE MEDICARE [place] [address] [place] [address] CARE MEDICARE REPLACEMENT CARE MEDICARE REPLACEMENT [facility] ONE CARE MEDICARE REPLACEMENT Care Teams Silk Hanger Relationship Specialty Start Date End Date Pcp, Not Required [address] [place] [id number] PCP - General 09/16/21 Additional Source Comments The information contained in this document represents components of the legal health record. It is not the complete legal health record.[facility]
--- OUTSIDE RECORDS SUMMARY | 2025-03-11 13:07 | XMS_ITS | Clinical Summary ---
Author Organization [facility] Address [address] [place] [address] Phone Care Team Providers Care Billposter Name Role Phone Physician, No Pcp Primary Care Provider Unavaila ble Allergies No known active allergies Encounters Date Type Department Care Team Description 01/23/2025 8:29 PM EDT - 01/23/2025 9:21 PM EDT Emergency [facility] Emergency [address] [place] [address] Discharge Disposition: Left Against Medical Advice from Last 3 Months Social History Tobacco Use Types Packs/Day Years Used Date Smoking Tobacco: Never Smokeless Tobacco: Never Tobacco Cessation:Counseling Given: Not Answered Comments No Sex and Gender Information Value Date Recorded Sex Assigned at Not on file Legal Sex Female 10:06 AM EST Gender Identity Not on file Sexual Orientation Not on file Obstetrics History Last Filed Vital Signs Vital Sign Reading Time Taken Comments Blood Pressure 135/86 01/23/2025 8:47 PM EDT Pulse 76 01/23/2025 8:47 PM EDT Temperature 36.4 C (97.6 F) 01/23/2025 8:47 PM EDT Respiratory Rate 22 01/23/2025 8:47 PM EDT Oxygen Saturation 100% 01/23/2025 8:47 PM EDT Inhaled Oxygen Concentration - - Weight 59 kg (130 lb) 01/23/2025 8:47 PM EDT Height 152.4 cm (5') 01/23/2025 8:47 PM EDT Body Mass Index 25.39 01/23/2025 8:47 PM EDT Plan of Treatment Health Maintenance Due Date Last Done Comments DTaP,Tdap,and Td Vaccines (7 - Td or Tdap) 12/02/2015 12/01/2005, 11/19/1996, 04/20/1994, Additional history exists Cervical Cancer Screening: Pap Smear 12/12/2020 12/12/2017 Cholesterol Screening (Lipid Panel) 08/22/2023 HIV Screening 08/22/2023 Hepatitis C Screening 08/22/2023 Medicare Annual Wellness Visit 08/22/2023 Social Influencers of Health Screening 08/22/2023 COVID-19 Vaccine ( season) 2024 09/29/2021, 07/02/2021, 12/25/2020, Additional history exists Depression Screening 07/24/2024 Influenza Vaccine (#1) 2025 Hypertension/CHF/CAD Annual BMP Blood Test 01/23/2026 01/23/2025 HIB Vaccines Completed 04/20/1994, 07/24, 05/14/1992, Additional history exists IPV Vaccines Completed 11/19/1996, 07/24, 05/14/1992, Additional history exists MMR Vaccines Completed 11/19/1996, 04/20/1994 Hepatitis B Vaccines Completed 04/03/2006, 12/01/2005, 11/19/1996 HPV Vaccines Aged Out No longer eligi [...] age to complete this topic Pneumococcal Vaccine: Pediatrics (0 to 5 Years) and At-Risk Patients (6 to 49 Years) Aged Out No longer eligible based on patient's age to complete this topic RSV Immunization Patients Under 20 months Aged Out No longer eligible based on patient's age to complete this topic Varicella Vaccines Aged Out No longer eligible based on patient's age to complete this topic Procedures Procedure Name Priority Date/Time Associated Diagnosis Comments ECG ANNOTATED 01/24/2025 CBC WITH AUTO DIFFERENTIAL STAT 01/23/2025 8:46 PM EDT TROPONIN I HIGH SENSITIVITY STAT 01/23/2025 8:46 PM EDT MAGNESIUM STAT 01/23/2025 8:46 PM EDT BASIC METABOLIC PANEL STAT 01/23/2025 8:46 PM EDT CBC AND DIFFERENTIAL STAT 01/23/2025 8:46 PM EDT ECG 12-LEAD STAT 01/23/2025 8:36 PM EDT PAP SMEAR Routine 12/12/2017 from Last 3 Months or Most Recently Relevant to Health Maintenance Results * ECG-Annotated (01/24/2025) us Provider Onbase MD ECG ORDERABLES Final Result * Troponin I high sensitivity (01/23/2025 8:46 PM EDT) [facility] High Sensitivity Troponin I <3 <=54 ng/L LAB CHEMISTRY METHOD 01/23/2025 9:22 PM EDT [facility] Blood Venous blood specimen / Unknown Venipuncture / Unknown 01/23/2025 8:46 PM EDT 01/23/2025 8:57 PM EDT Narrative [facility] - 01/23/2025 9:22 PM EDT High levels of biotin in samples may falsely decrease hsTroponin values. Use caution when interpreting hsTroponin results in patients taking biotin who exhibit renal impairment (eGFR <60) or in patients taking more than 20 mg/day of biotin. Hailee Beth DO LAB BLOOD ORDERABLES Alena l Result [facility] [address] [place] [address], * (ABNORMAL) CBC auto differential (01/23/2025 8:46 PM EDT) [facility] WBC 12.6(H) 4.8 - 10.8 K/[facility] LAB HEMETOLOGY METHOD [facility]/23[facility]25 [facility] RBC 4.40 3.80 - 4.80 M/mcL LAB HEMETOLOGY METHOD 01/23/2025 9:02 PM [facility] Hemoglobin 12.5 11.5 - 16.0 g/dL LAB HEMETOLOGY METHOD 01/23/2025 9:02 PM [facility] Hematocrit 37.9 35.0 - 47.0 % LAB HEMETOLOGY METHOD 01/23/2025 9:02 PM [facility] MCV 85.6 79.0 - 98.0 FL LAB HEMETOLOGY METHOD 01/23/2025 9:02 PM [facility] MCH 28.2 27.0 - 32.0 pcg LAB HEMETOLOGY METHOD 01/23/2025 9:02 PM [facility] MCHC 33.0 32.0 - 37.0 g/dL LAB HEMETOLOGY METHOD 01/23/2025 9:02 PM [facility] RDW 13.9 11.0 - 15.0 % LAB HEMETOLOGY METHOD 01/23/2025 9:02 PM [facility] Platelets 437(H) 130 - 400 K/mcL LAB HEMETOLOGY METHOD 01/23/2025 9:02 PM [facility] MPV 9.2 7.0 - 11.0 FL LAB HEMETOLOGY METHOD 01/23/2025 9:02 PM [facility] NRBC 0.0 <1.0 % LAB HEMETOLOGY METHOD 01/23/2025 9:02 PM [facility] NRBC Absolute 0.00 <0.10 K/mcL LAB HEMETOLOGY METHOD 01/23/2025 9:02 PM [facility] Neutrophils Relative 74.0 % LAB HEMETOLOGY METHOD 01/23/2025 9:02 PM [facility] Lymphocytes Relative 17.1 % LAB HEMETOLOGY METHOD 01/23/2025 9:02 PM [facility] Monocytes Relative 6.8 % LAB HEMETOLOGY METHOD 01/23/2025 9:02 PM [facility] Eosinophils Relative 1.5 % LAB HEMETOLOGY METHOD 01/23/2025 9:02 PM [facility] Basophils Relative 0.4 % LAB HEMETOLOGY METHOD 01/23/2025 9:02 PM [facility] Immature Granulocytes Relative 0.2 % LAB HEMETOLOGY METHOD 01/23/2025 9:02 PM [facility] Neutrophils Absolute 9.31(H) 1.50 - 7.00 K/mcL LAB HEMETOLOGY METHOD 01/23/2025 9:02 PM [facility] Lymphocytes Absolute 2.15 1.00 - 5.00 K/mcL LAB HEMETOLOGY METHOD 01/23/2025 9:02 PM [facility] Monocytes Absolute 0.85 0.20 - 1.00 K/mcL LAB HEMETOLOGY METHOD 01/23/2025 9:02 PM [facility] Eosinophils Absolute 0.19 0.00 - 0.50 K/mcL LAB HEMETOLOGY METHOD 01/23/2025 9:02 PM [facility] Basophils Absolute 0.05 0.00 - 0.20 K/mcL LAB HEMETOLOGY METHOD 01/23/2025 9:02 PM [facility] Immature Granulocytes Absolute 0.03 0.00 - 0.03 K/mcL LAB HEMETOLOGY METHOD 01/23/2025 9:02 PM [facility] Blood Venous blood specimen / Unknown Venipuncture / Unknown 01/23/2025 8:46 PM EDT 01/23/2025 8:57 PM EDT us Ting Ho Jacoby Beth DO LAB BLOOD ORDERABLES Alena l Result [facility] [address] [place] [address], [place] [phone] * Magnesium (01/23/2025 8:46 PM EDT) Magnesium 2.2 1.9 - 2.6 mg/dL LAB CHEMISTRY METHOD 01/23/2025 9:18 PM EDT [facility] Blood Venous blood specimen / Unknown Venipuncture / Unknown 01/23/2025 8:46 PM EDT 01/23/2025 8:57 PM EDT Hailee Beth LAB BLOOD ORDERABLES Alena l Result Performing Organization Address City/[facility]/ZIP Co de Phone Number [facility] [address] [place] [address], [place] [phone] * Basic metabolic panel (01/23/2025 8:46 PM EDT) Sodium 140 133 - 145 mmol/L LAB CHEMISTRY METHOD 01/23/2025 9:18 PM [facility] Potassium 3.6 3.5 - 5.5 mmol/L LAB CHEMISTRY METHOD 01/23/2025 9:18 PM [facility] Chloride 103 96 - 110 mmol/L LAB CHEMISTRY METHOD 01/23/2025 9:18 PM T [facility] CO2 29 21 - 32 mmol/L LAB CHEMISTRY METHOD 01/23/2025 9:18 PM EDT [facility] Anion Gap 8 3 - 11 LAB CHEMISTRY METHOD 01/23/2025 9:18 PM T [facility] Glucose 78 70 - 100 mg/dL LAB CHEMISTRY METHOD 01/23[facility]2025 9:[facility] BUN 8 5 - 25 mg/dL LAB CHEMISTRY METHOD 01/23/2025 9:18 PM EDT [facility] Creatinine 0.67 0.50 - 1.10 mg/dL LAB CHEMISTRY METHOD 01/23/2025 9:18 PM EDT [facility] eGFR 119 >=60 mL/min/1. 73m2 LAB CHEMISTRY METHOD 01/23/2025 9:18 PM EDT [facility] Comment:Calculation based on the Chronic Kidney Disease Epidemiology Collaboration (CKD-EPI) equation refit without adjustment for race. BUN/Creatinine Ratio 11.9 LAB CHEMISTRY METHOD 01/23/2025 9:18 PM EDT [facility] Calcium 10.1 8.5 - 10.5 mg/dL LAB CHEMISTRY METHOD 01/23/2025 9:18 PM EDT [facility] Blood Venous blood specimen / Unknown Venipuncture / Unknown 01/23/2025 8:46 PM EDT 01/23/2025 8:57 PM EDT us Hailee Talamantesny Kirit DO LAB BLOOD ORDERABLES Alena l Result [facility] [address] [place] [address], * ECG 12 lead (01/23/2025 8:36 PM EDT) Ventricular Rate ECG 70 BPM GEMUSE Atrial Rate 70 BPM GEMUSE P-R Interval 148 ms GEMUSE QRS Duration 84 ms GEMUSE Q-T Interval 386 ms GEMUSE QTc 416 ms GEMUSE P Wave [place] 55 degrees GEMUSE R [place] 10 degrees GEMUSE T [place] 48 degrees GEMUSE ECG Interpretation Normal sinus rhythm with sinus arrhythmia Normal ECG When compared with ECG of 10-JUL-2023 00:23, No significant change was found Confirmed by ANA LUISA SAINI ([id number]) on 01/24/2025 7:51:06 AM GEMUSE 01/23/2025 8:36 PM EDT 01/24/2025 7:51 AM EDT us Hailee Beth DO ECG ORDERABLES Final Res ult GEMUSE * Pap smear (12/12/2017) 12/12/2017 Narrative HISTORICAL TESTING LAB RESULTING AGENCY - 12/22/2017 1:38 PM EDT [id number] THINPREP PAP, IMAGED: ATYPICAL SQUAMOUS CELLS OF UNDETERMINED SIGNIFICANCE (ASCUS) . RESULTS OF APTIMA HIGH RISK HPV ASSAY: NEGATIVE (SEROTYPES 16,18,31,33,35, 39,45,51,52,56,58,59,66,68) ANGEL BRENNAN(ASCP) (CASE SCREENED 12 [...] or Most Recently Relevant to Health Maintenance Insurance [facility] MEDIC[facility] Member Subscriber Plan / Payer (Ef fective 2023-Present) Name:TIKA MENEZES Relation to Subscriber:Self Name:Tika Menezes Payer ID:[id number] Group ID:[id number] Type:Not on file Address: [place] [address] [address] [address] [employer] Member Subscriber Plan / Payer (Ef fective 2023-Present) Name:TIKA MENEZES Relation to Subscriber:Self Name:Tika Menezes Payer ID:[id number] Group ID:[id number] Type:Not on file Address: [facility] [address] [phone] Care Teams Billposter Relationship Specialty Start Date End Date Physician, No Pcp PCP - General 01/23/25
[2025-03-11 13:14] LABS: Alanine Aminotransferase 16 U/L (0-31); Albumin Level 4.7 g/dL (3.5-5.0); Alkaline Phosphatase 60 U/L (39-117); Anion Gap 10 (12-20); Aspartate Amino Transferase 18 U/L (5-31); Blood Urea Nitrogen 12 mg/dL (9-16); Calcium 9.4 mg/dL (8.4-10.2); Carbon Dioxide 28 mmol/L (22-29); Chloride 104 mmol/L (96-108); Cholesterol 212 mg/dL (<200); Estimated Glomerular Filt Rate > 60; HDL Cholesterol 48 mg/dL (>40); Potassium 4.4 mmol/L (3.3-5.1); Sodium 138 mmol/L (135-145); Total Protein 7.6 g/dL (6.5-8.0); Triglycerides 77 mg/dL (<150)
[2025-03-11 13:26] LABS: HIV Num 1 0.06 S/CO (0.00-0.99)
[2025-03-11 13:36] LABS: Free T4 (Free Thyroxine) 0.97 ng/dL (0.71-1.85)
== END 2025-03-11 11:34 | disposition home or self-care (01) ==
LOC: HO.LAB 11:33
DX: Z01.818 Encounter for other preprocedural examination (principal); E03.9 Hypothyroidism, unspecified; Z11.4 Encounter for screening for human immunodeficiency virus [HIV]; Z13.21 Encounter for screening for nutritional disorder
CPT/HCPCS: 36415; 80053; 80061; 81001; 82306; 84439; 84443; 84702; 85025; 85610; 85652; 85730; 87389; 93005

== ENCOUNTER → 2025-03-11 11:39 | Outpatient (BNV) | payer OTHER, SELFPAY | PROVIDERS: Visit Provider Internal Medicine Cardiovascular Disease | DX: Z01.810 Encounter for preprocedural cardiovascular examination (principal) | CPT/HCPCS: 93010 ==

== ENCOUNTER 2025-03-21 15:09 | Outpatient (REF) | payer OTHER, SELFPAY ==
--- NOTE | ~2025-03-21 | MM_ITS ---
EXAMINATION: MM SCREENING DIGITAL BREAST TOMOSYNTHESIS, BILATERAL CLINICAL INFORMATION: Screening. Asymptomatic. COMPARISON: Mammography: Baseline. TECHNIQUE: Digital breast mammography with tomosynthesis is performed in both the craniocaudal and mediolateral oblique views along with computer-aided detection (CAD). FINDINGS: The breasts are heterogeneously dense, which may obscure small masses (ACR BI-RADS breast composition Category c). Left: There are no significant masses, abnormal calcifications, or other abnormalities. Right: Asymmetry retroareolar region posterior depth on MLO view could reflect normal overlapping tissue. No suspicious calcifications or other abnormal findings. MM/MM tomosynthesis screening BI IMPRESSION: Additional imaging is recommended ASSESSMENT: BI-RADS BI-RADS 0 - Incomplete: Needs additional Imaging. RECOMMENDATION: 1. Additional views of the right breast. 2. Targeted ultrasound if warranted after review of the additional views. 3. Radiology department staff will contact the patient for additional imaging. Additional Imaging required This examination should not preclude the clinical evaluation of a suspicious palpable abnormality. This patient's information was entered into a reminder system with a target due date for their next mammogram. Electronically signed by: Tiffany Ruff DO 03/25/2025 11:46 AM EDT
--- OUTSIDE RECORDS SUMMARY | 2025-03-21 15:13 | XMS_ITS | Clinical Summary ---
Author Organization [facility] Address [address] [place] [address] Phone Care Team Providers Care Disability Attorney Name Role Phone Physician, No Pcp Primary Care Provider Unavaila ble Allergies No known active allergies Encounters Date Type Department Care Team Description 01/23/2025 8:29 PM EDT - 01/23/2025 9:21 PM EDT Emergency [facility] Emergency [address] [place] [address] Discharge Disposition: Left Against Medical [...] I high sensitivity (01/23/2025 8:46 PM EDT) [facility] High Sensitivity Troponin I <3 <=54 ng/L LAB CHEMISTRY METHOD 01/23/2025 9:22 PM EDT [facility] Blood Venous blood specimen / Unknown Venipuncture / Unknown 01/23/2025 8:46 PM EDT 01/23/2025 8:57 PM EDT Narrative [facility] - 01/23/2025 9:22 PM EDT High levels of biotin in samples may falsely decrease hsTroponin values. Use caution when interpreting hsTroponin results in patients taking biotin who exhibit renal impairment (eGFR <60) or in patients taking more than 20 mg/day of biotin. Hailee Beth DO LAB BLOOD ORDERABLES Alena l Result [facility] [address] [place] [address], * (ABNORMAL) CBC auto differential (01/23/2025 8:46 PM EDT) [facility] WBC 12.6(H) 4.8 - 10.8 K/[facility] RBC 4.40 3.80 - 4.80 M/mcL LAB HEMETOLOGY METHOD 01/23/2025 9:02 PM [facility] Hemoglobin 12.5 11.5 - 16.0 g/dL LAB HEMETOLOGY METHOD 01/23/2025 9:02 PM [facility] Hematocrit 37.9 35.0 - 47.0 % LAB HEMETOLOGY METHOD 01/23/2025 9:02 PM [facility] MCV 85.6 79.0 - 98.0 FL LAB HEMETOLOGY METHOD 01/23/2025 9:02 PM [facility] MCH 28.2 27.0 - 32.0 pcg LAB HEMETOLOGY METHOD 01/23/2025 9:02 PM [facility] MCHC 33.0 32.0 - 37.0 g/dL LAB HEMETOLOGY METHOD 01/23/2025 9:02 PM [facility] RDW 13.9 11.0 - 15.0 % LAB HEMETOLOGY METHOD 01/23/2025 9:02 PM [facility] Platelets 437(H) 130 - 400 K/mcL LAB HEMETOLOGY METHOD 01/23/2025 9:02 PM [facility] MPV 9.2 7.0 - 11.0 FL LAB HEMETOLOGY METHOD 01/23/2025 9:02 PM [facility] NRBC 0.0 <1.0 % LAB HEMETOLOGY METHOD 01/23/2025 9:02 PM [facility] NRBC Absolute 0.00 <0.10 K/mcL LAB HEMETOLOGY METHOD 01/23/2025 9:02 PM [facility] Neutrophils Relative 74.0 % LAB HEMETOLOGY METHOD 01/23/2025 9:02 PM [facility] Lymphocytes Relative 17.1 % LAB HEMETOLOGY METHOD 01/23/2025 9:02 PM [facility] Monocytes Relative 6.8 % LAB HEMETOLOGY METHOD 01/23/2025 9:02 PM [facility] Eosinophils Relative 1.5 % LAB HEMETOLOGY METHOD 01/23/2025 9:02 PM [facility] Basophils Relative 0.4 % LAB HEMETOLOGY METHOD 01/23/2025 9:02 PM [facility] Immature Granulocytes Relative 0.2 % LAB HEMETOLOGY METHOD 01/23/2025 9:02 PM [facility] Neutrophils Absolute 9.31(H) 1.50 - 7.00 K/mcL LAB HEMETOLOGY METHOD 01/23/2025 9:02 PM [facility] Lymphocytes Absolute 2.15 1.00 - 5.00 K/mcL LAB HEMETOLOGY METHOD 01/23/2025 9:02 PM [facility] Monocytes Absolute 0.85 0.20 - 1.00 K/mcL LAB HEMETOLOGY METHOD 01/23/2025 9:02 PM [facility] Eosinophils Absolute 0.19 0.00 - 0.50 K/mcL LAB HEMETOLOGY METHOD 01/23/2025 9:02 PM [facility] Basophils Absolute 0.05 0.00 - 0.20 K/mcL LAB HEMETOLOGY METHOD 01/23/2025 9:02 PM [facility] Immature Granulocytes Absolute 0.03 0.00 - 0.03 K/mcL LAB HEMETOLOGY METHOD 01/23/2025 9:02 PM [facility] Blood Venous blood specimen / Unknown Venipuncture / Unknown 01/23/2025 8:46 PM EDT 01/23/2025 8:57 PM EDT us Ting Ho Jacoby Beth DO LAB BLOOD ORDERABLES Alena l Result [facility] [address] [place] [address], [place] [phone] * Magnesium (01/23/2025 8:46 PM EDT) Magnesium 2.2 1.9 - 2.6 mg/dL LAB CHEMISTRY METHOD 01/23/2025 9:18 PM EDT [facility] Blood Venous blood specimen / Unknown Venipuncture / Unknown 01/23/2025 8:46 PM EDT 01/23/2025 8:57 PM EDT Hailee Beth LAB BLOOD ORDERABLES Alena l Result Performing Organization Address City/[facility]/ZIP Co de Phone Number [facility] [address] [place] [address], [place] [phone] * Basic metabolic panel (01/23/2025 8:46 PM EDT) Sodium 140 133 - 145 mmol/L LAB CHEMISTRY METHOD 01/23/2025 9:18 PM [facility] Potassium 3.6 3.5 - 5.5 mmol/L LAB CHEMISTRY METHOD 01/23/2025 9:18 PM [facility] Chloride 103 96 - 110 mmol/L LAB CHEMISTRY METHOD 01/23/2025 9:18 PM T [facility] CO2 29 21 - 32 mmol/L LAB CHEMISTRY METHOD 01/23/2025 9:18 PM EDT [facility] Anion Gap 8 3 - 11 LAB CHEMISTRY METHOD 01/23/2025 9:18 PM T [facility] Glucose 78 70 - 100 mg/dL LAB CHEMISTRY [facility] BUN 8 5 - 25 mg/dL LAB CHEMISTRY METHOD 01/23/2025 9:18 PM EDT [facility] Creatinine 0.67 0.50 - 1.10 mg/dL LAB CHEMISTRY METHOD 01/23/2025 9:18 PM EDT [facility] eGFR 119 >=60 mL/min/1. 73m2 LAB CHEMISTRY METHOD 01/23/2025 9:18 PM EDT [facility] Comment:Calculation based on the Chronic Kidney Disease Epidemiology Collaboration (CKD-EPI) equation refit without adjustment for race. BUN/Creatinine Ratio 11.9 LAB CHEMISTRY METHOD 01/23/2025 9:18 PM EDT [facility] Calcium 10.1 8.5 - 10.5 mg/dL LAB CHEMISTRY METHOD 01/23/2025 9:18 PM EDT [facility] Blood Venous blood specimen / Unknown Venipuncture / Unknown 01/23/2025 8:46 PM EDT 01/23/2025 8:57 PM EDT us Hailee Talamantesny Kirit DO LAB BLOOD ORDERABLES Alena l Result [facility] [address] [place] [address], * ECG 12 lead (01/23/2025 8:36 PM EDT) Ventricular Rate ECG 70 BPM GEMUSE Atrial Rate 70 BPM GEMUSE P-R Interval 148 ms GEMUSE QRS Duration 84 ms GEMUSE Q-T Interval 386 ms GEMUSE QTc 416 ms GEMUSE P Wave [place] 55 degrees GEMUSE R [place] 10 degrees GEMUSE T [place] 48 degrees GEMUSE ECG Interpretation Normal sinus [...] RESULTING AGENCY - 12/22/2017 1:38 PM EDT [id number] THINPREP PAP, IMAGED: ATYPICAL SQUAMOUS CELLS OF [...] Most Recently Relevant to Health Maintenance Insurance [facility] MEDIC[facility] Member Subscriber Plan / Payer (Ef fective 2023-Present) Name:TIKA MENEZES Relation to Subscriber:Self Name:Tika Menezes Payer ID:[id number] Group ID:[id number] Type:Not on file Address: [place] [address] [address] [place] [address] [employer] Member Subscriber Plan / Payer (Ef fective 2023-Present) Name:TIKA MENEZES Relation to Subscriber:Self Name:Tika Menezes Payer ID:[id number] Group ID:[id number] Type:Not on file Address: [facility] [address] [address] Care Teams Disability Attorney Relationship Specialty Start Date End Date Physician, No Pcp PCP - General 01/23/25
--- OUTSIDE RECORDS SUMMARY | 2025-03-21 15:13 | XMS_ITS | Clinical Summary ---
Author Organization [facility] Address [address] [place], [place] [id number] Phone Care Team Providers Care Cooling Pan Tender Name Role Phone Pcp, Not Required Primary [...] ALLIANCE ONE CARE MEDICARE REPLACEMENT [place] [id number] [employer]ARE MEDICARE REPLACEMENT CARE MEDICARE [place] [address] [place] [address] CARE MEDICARE REPLACEMENT CARE MEDICARE REPLACEMENT [facility] ONE CARE MEDICARE REPLACEMENT Care Teams Cooling Pan Tender Relationship Specialty Start Date End Date Pcp, Not Required [address] [place] [id number] PCP - General 09/16/21 Additional Source Comments The information contained in this document represents components of the legal health record. It is not the complete legal health record.[facility]
== END 2025-03-21 15:10 | disposition home or self-care (01) ==
LOC: HO.MAMMO 15:09
DX: Z12.31 Encounter for screening mammogram for malignant neoplasm of breast (principal)
CPT/HCPCS: 77063; 77067

== ENCOUNTER → 2025-03-21 15:30 | Outpatient (BNV) | payer OTHER, SELFPAY | PROVIDERS: Visit Provider Internal Medicine | DX: Z12.31 Encounter for screening mammogram for malignant neoplasm of breast (principal) | CPT/HCPCS: 77063; 77067 ==

== ENCOUNTER 2025-03-25 15:53 | Outpatient (AMB) | payer OTHER, SELFPAY ==
--- NOTE | 2025-03-25 15:58 | MHC.PC.OV ---
Vital Signs 03/25/25 16:00 Height 4 ft 11 in Weight 130 lb 8 oz BMI 26.4 BP 130/60 Blood Pressure Location Lt brachial Position Sitting Pulse 74 Pulse Source Pulse Oximeter Temp 97.1 F Temp Source Temporal Artery Scan Pulse Oximetry (%) 97 Oxygen Delivery Method Room Air Intake Visit Reasons: hypothyroidism/fibroymalgia/Depression Intake Note: Patient is here to follow up on Hypothyroidism, Fibromyalgia, Depression. Medical Device Sales Consultant Required: No Physician Liaison: Not Required per policy Accompanied by: Self / Same As Patient Allergies ketorolac (From TORADOL) Allergy (Severe, Verified 03/25/25 23:47) ANAPHYLAXIS metoclopramide (From REGLAN) Allergy (Severe, Verified 03/25/25 23:47) ANAPHYLAXIS prochlorperazine (From COMPAZINE) Allergy (Severe, Verified 03/25/25 23:47) ANAPHYLAXIS Medication List - Last Reconciled 03/25/25 by CHAZ De Paz albuterol sulfate 90 mcg/actuation 2 puffs inhalation Q4-6H PRN atorvastatin (Lipitor) 10 mg PO BEDTIME clonazepam 1 mg PO BID PRN dextroamphetamine-amphetamine 10 mg 1 tab PO TID dextroamphetamine-amphetamine 20 mg ER 1 cap PO QAM epinephrine (EpiPen 2-Osito) 0.3 mg (0.3 mL) IM Q10M PRN levothyroxine 88 mcg PO DAILY lidocaine 5% 1 patch topical DAILY 7 days lumateperone (Caplyta) 42 mg PO BEDTIME pregabalin (Lyrica) 75 mg PO BID sumatriptan succinate take 1 tab at onset of headache; if no relief may repeat 1 tab after at least 2 hrs; max = 4 tabs/24 hr PO tirzepatide (Mounjaro) 2.5 mg subcut .Q2week trazodone 250 mg PO BEDTIME Tobacco use date assessed: 03/25/25 Dental Screening Dental Screen Date: 03/07/25 HPI hypothyroidism/fibroymalgia/Depression HPI Details The patient is a 34-year-old female presenting with concerns regarding anemia and hypercholesterolemia, as well as musculoskeletal pain in the lower back. The patient reports receiving a message indicating low hemoglobin levels, which led to the postponement of her surgery initially scheduled for April. She expressed concerns about the accuracy of this information, suspecting it might be a sales tactic for a director medical economics. Her hemoglobin level was confirmed to be 13.4 g/dL, which is within normal limits. The patient has a history of hypercholesterolemia, previously managed with atorvastatin, which she discontinued due to concerns about liver health. She reports dietary changes, including reducing fried foods and increasing protein intake, but has experienced minimal weight loss despite these efforts. A small dose of atorvastatin is being considered to manage her cholesterol levels, with regular monitoring of liver enzymes. The patient lower back which has been present for sometime now. Physical therapy has been recommended to address these symptoms. The patient experienced hypokalemia approximately three to four weeks ago, which was managed with intravenous potassium supplementation at home. She attributes this episode to dietary changes aimed at weight loss. [facility] Medical History Meningioma Asthma Hypothyroidism Bipolar 2 disorder Fibromyalgia Surgical History History of hernia surgery Family History Other Mental health disorder Social History Household Members: None Housing: Apartment Alcohol intake: current Alcohol intake frequency: holidays/special occasions only Patient Tobacco Use Status: Former Tobacco user e-Cigarette/Vaping Use: Former Use Second Hand Smoke Exposure: Yes Substance Use Type: Marijuana service: No Current occupational status: disabled Cognitive needs: No Hearing needs: No Vision needs: No Questionnaire Thrive Questionnaire Date Thrive assessed: 03/07/25 I am a: Patient What is your living situation today?: I have a steady place to live Within the past 12 months, did the food you bought not last and you didn't have the money to get more?: Never true Within the past 12 months, did you worry whether your food would run out before you got money to buy more?: Never true Do you have trouble paying for medicines?: No Do you have trouble getting transportation to medical appointments?: No Do you have trouble paying your heating and electricity bill?: No Do you have trouble taking care of your child, family member or friend?: No Do you have trouble with day-to-day activities such as bathing, preparing meals, shopping, managing finances, etc.?: Yes Are you currently unemployed and looking for a job?: I choose not to answer this question Are you interested in more education?: I choose not to answer this question Please select the resources that you would like help with: None THRIVE Score: 0 LAMONT-7 AMB Questionnaire LAMONT-7 Date LAMONT - 7 assessed: 03/07/25 Source: Developed by Drs. German Malone, Cande Marcelo, Mark Cooney and colleagues, with an educational tasha from [employer]. Review of Systems Const Denies body aches, Denies chills, Reports difficulty sleeping, Reports fatigue, Denies fever(s), Reports headache(s) (On and off), Denies poor appetite and Reports weight gain Eyes Reports no additional complaints ENT Denies dysphagia, Denies dizziness, Reports headache(s) (On and off) and Denies odynophagia Card Denies chest pain, Denies syncope, Denies edema, Denies irregular heart rhythm, Denies lightheadedness and Denies dyspnea Resp Denies cough and Denies dyspnea GI Denies abdominal pain, Denies constipation, Denies dysphagia, Denies diarrhea, Denies nausea, Denies odynophagia and Denies vomiting Reports no additional complaints Musc Denies abnormal gait and Reports back pain (Lower back) Skin/Breast Reports system reviewed and no additional complaints, except as documented Neuro Reports Abnormal speech present, Denies abnormal gait, Denies dizziness, Denies syncope and Reports headache(s) (On and off) Psych Reports anxiety, Reports depression, Reports difficulty concentrating, Denies homicidal ideation and Denies suicidal ideation Endo Reports fatigue Physical exam (Primary Care) Vital Signs: Last Vital Signs Temp 97.1 F 03/25/25 16:00 Pulse 74 03/25/25 16:00 BP 130/60 03/25/25 16:00 Pulse Ox 97 03/25/25 16:00 Oxygen Delivery Method Room Air 03/25/25 16:00 BMI result Body Mass Index 26.4 Tobacco/Smoking Status: Tobacco use Status Tobacco use date assessed 03/25/25 03/25/25 16:02 Patient Tobacco Use Status Former Tobacco user 03/25/25 16:02 e-Cigarette/Vaping Use Former Use 03/25/25 16:07 Thrive Assessment: Date of Thrive Assessment Date Thrive assessed 03/07/25 03/25/25 16:02 Const General: cooperative, healthy appearing, comfortable and no acute distress Orientation/consciousness: patient oriented x3 HENMT Head: Yes normocephalic Ears: hearing grossly normal bilaterally General nose exam: Normal external nose present Eyes General: appearance normal, both eyes and all related structures Conjunctivae: conjunctivae normal EOM: Nystagmus present Neck Neck: Yes full ROM and Yes no lymphadenopathy Resp Effort & Inspection: normal respiratory effort Auscultation: clear to auscultation bilaterally, no crackles, no rales, no rhonchi and no wheezes Cardio Rate: regular rate Rhythm: regular rhythm Heart sounds: S1 normal heart sound present GI Palpation (GI): Soft to palpation and nontender Auscultation: normal bowel sounds General: Yes no CVA tenderness Back/Spine/Pelvis Back: no CVA tenderness Thoracic/Lumbar Spine: lumbar spinal tenderness Skin General skin exam: no rashes or lesions noted Neuro General: patient oriented x3 and CN's II-XI intact bilaterally Cranial nerves: Yes Nystagmus present Speech: Abnormal speech present Gait exam (Neuro): Normal gait present Motor exam (neuro): 5/5 motor strength present throughout Extrem General: Yes normal to inspection, Yes full ROM and No edema Psych Affect: normal affect Attitude: cooperative Insight: Good insight present (Psych) Judgement: Good judgement present (Psych) Results Reviewed Results Reviewed: Laboratory Tests 03/11/25 03/11/25 12:03 12:04 WBC 8.8 RBC 4.89 Hgb 13.4 Hct 41.6 MCV 85.1 MCH 27.4 MCHC 32.2 RDW 15.7 Plt Count 484 H Sodium 138 Potassium 4.4 Chloride 104 Carbon Dioxide 28 Anion Gap 10 L BUN 12 Creatinine 0.87 Estim Creat Clear Calc Not Reportable Estimated GFR > 60 Fasting Glucose 88 Calcium 9.4 Total Bilirubin 0.3 AST 18 ALT 16 Alkaline Phosphatase 60 Total Protein 7.6 Albumin 4.7 Triglycerides 77 Cholesterol 212 H LDL Cholesterol, Calc 149 H HDL Cholesterol 48 25-OH Vitamin D Total 60.8 TSH 0.73 Free T4 0.97 Beta HCG, Quant < 2 Urine Color Yellow Urine Appearance Clear Urine pH 6.5 Ur Specific [place] 1.025 Urine Protein Negative Urine Glucose (UA) Negative Urine Ketones Trace Urine Blood Negative Urine Nitrite Negative Ur Leukocyte Esterase Trace H Urine RBC 0-2 Urine WBC 0-5 Ur Squamous Epith Cells 3-5 Urine Bacteria None Seen Hyaline Casts 0-2 Coding Level of Care Code Est Pt Level 4 (05983) Diagnoses Anxiety F41.9 Hypertension, unspecified type I10 Hypertension type: unspecified Hypothyroidism, unspecified type E03.9 Hypothyroidism type: unspecified Left-sided low back pain without sciatica, unspecified chronicity M54.50 Chronicity: unspecified Back pain laterality: left Sciatica presence: without sciatica Asthma, unspecified asthma severity, unspecified whether complicated, unspecified whether persistent J45.909 Asthma severity: unspecified severity Asthma persistence: unspecified Asthma complication type: unspecified Bipolar 2 disorder F31.81 Hyperlipidemia, unspecified hyperlipidemia type E78.5 Hyperlipidemia type: unspecified Insomnia, unspecified type G47.00 Insomnia type: unspecified Attention deficit hyperactivity disorder (ADHD), unspecified ADHD type F90.9 Attention deficit-hyperactivity disorder type: unspecified Time Spent (min) 41 Assessment & Plan Assessment & Plan (1) Anxiety: Code(s): F41.9 - Anxiety disorder, unspecified Category: Medical Plan: Encouraged CBT Continue clonazepam 1 mg b.i.d. p.r.n. Follow up with Psychiatry as scheduled (2) HTN (hypertension): Code(s): I10 - Essential (primary) hypertension Category: Medical Qualifiers: Hypertension type: unspecified Qualified Code(s): I10 - Essential (primary) hypertension Plan: Blood pressure 130/60 Encouraged DASH diet and activity as tolerated-goal systolic is less than 130 mmhg Refrain from alcohol use and if you smoke, smoking cessation is strongly advised (3) Hypothyroidism: Code(s): E03.9 - Hypothyroidism, unspecified Category: Medical Qualifiers: Hypothyroidism type: unspecified Qualified Code(s): E03.9 - Hypothyroidism, unspecified Plan: Euthyroidism Continue levothyroxine 88 mcg daily, Rx refilled We will recheck TFTs in 3 months (4) Low back pain: Code(s): M54.50 - Low back pain, unspecified Category: Medical Qualifiers: Chronicity: unspecified Back pain laterality: left Sciatica presence: without sciatica Qualified Code(s): M54.50 - Low back pain, unspecified Plan: Patient reports persistent musculoskeletal pain, particularly in the lower back. Physical therapy has been recommended to alleviate these symptoms and improve her functional status. (5) Asthma: Code(s): J45.909 - Unspecified asthma, uncomplicated Category: Medical Qualifiers: Asthma severity: unspecified severity Asthma persistence: unspecified Asthma complication type: unspecified Qualified Code(s): J45.909 - Unspecified asthma, uncomplicated Plan: Lifestyle modifications like smoking cessation. Wear a mask when around irritants, fumes, or particulate matter (e.g., painting, lawn mowing). Increase humidification at home, especially in the winter. Annual flu shots and the pneumonia shot can mitigate exacerbation. Increase fluids if not contraindicated because of heart failure. Denies shortness of breath Continue albuterol sulfate 90 mcg/actuation 2 puffs inhalation Q 4-6 H p.r.n., (6) Bipolar 2 disorder: Code(s): F31.81 - Bipolar II disorder Category: Medical Plan: continue caplyta 42 mg at bedtime follow with psych as scheduled (7) HLD (hyperlipidemia): Code(s): E78.5 - Hyperlipidemia, unspecified Category: Medical Qualifiers: Hyperlipidemia type: unspecified Qualified Code(s): E78.5 - Hyperlipidemia, unspecified Plan: The patient has a history of hypercholesterolemia, previously managed with atorvastatin. Due to concerns about liver health, she discontinued the medication. A small dose of atorvastatin is being considered, with regular monitoring of liver enzymes to manage her cholesterol levels effectively. (8) Insomnia: Code(s): G47.00 - Insomnia, unspecified Category: Medical Qualifiers: Insomnia type: unspecified Qualified Code(s): G47.00 - Insomnia, unspecified Plan: Sleep hygiene: Exercise regularly, but not within 4 hour of bedtime. Limit fluid intake and avoid large meals in the evening hours. Limit overall caffeine, tobacco, and alcohol intake; no night cap. Maintain a regular sleep-wake cycle without naps in the daytime. Lie down to sleep only when feeling sleepy; leave the bed if unable to fall asleep within 20 minutes; stay in bed for only the hours actually sleeping(but not less than 5 hour in 24 hours). Continue trazodone 250 mg at bedtime (9) ADHD: Code(s): F90.9 - Attention-deficit hyperactivity disorder, unspecified type Category: Medical Qualifiers: Attention deficit-hyperactivity disorder type: unspecified Qualified Code(s): F90.9 - Attention-deficit hyperactivity disorder, unspecified type Plan: Continue dextroamphetamine-amphetamine 10 mg 1 tab p.o. t.i.d., dextroamphetamine-amphetamine 20 mg ER 1 cap p.o. q.a.m. Follow up with Psychiatry as scheduled Orders: Orders Lipid Panel 3 Months E03.9 - Hypothyroidism, unspecified, F31.81 - Bipolar II disorder, F41.9 - Anxiety disorder, unspecified, I10 - Essential (primary) hypertension, J45.909 - Unspecified asthma, uncomplicated, M79.7 - Fibromyalgia Comprehensive [place]. Panel Fast 3 Months E03.9 - Hypothyroidism, unspecified, F31.81 - Bipolar II disorder, F41.9 - Anxiety disorder, unspecified, I10 - Essential (primary) hypertension, J45.909 - Unspecified asthma, uncomplicated, M79.7 - Fibromyalgia TSH reflex Free T4 3 Months E03.9 - Hypothyroidism, unspecified, F31.81 - Bipolar II disorder, F41.9 - Anxiety disorder, unspecified, I10 - Essential (primary) hypertension, J45.909 - Unspecified asthma, uncomplicated, M79.7 - Fibromyalgia Free T4 (Free Thyroxine) 3 Months E03.9 - Hypothyroidism, unspecified, F31.81 - Bipolar II disorder, F41.9 - Anxiety disorder, unspecified, I10 - Essential (primary) hypertension, J45.909 - Unspecified asthma, uncomplicated, M79.7 - Fibromyalgia Complete Blood Count Auto Diff 3 Months E03.9 - Hypothyroidism, unspecified, F31.81 - Bipolar II disorder, F41.9 - Anxiety disorder, unspecified, I10 - Essential (primary) hypertension, J45.909 - Unspecified asthma, uncomplicated, M79.7 - Fibromyalgia PT Evaluation and Treatment 03/25/25 M54.50 - Low back pain, unspecified Medications: New atorvastatin (Lipitor) 10 mg PO BEDTIME 90 tabs 3RF levothyroxine 88 mcg PO DAILY 90 tabs 3RF Refilled pregabalin (Lyrica) 75 mg PO BID 60 caps 0RF
[2025-03-25 16:00] VITALS: BP 130/60; PULSE 74; TEMP 36.2; O2SAT 97; BMI 26.4
--- OUTSIDE RECORDS SUMMARY | 2025-03-25 16:43 | XMS_ITS | Clinical Summary ---
Author Organization [facility] Address [address] [facility] [address] [place], [place] [id number] Phone Care Team Providers Care Child Support Specialist Name Role Phone Pcp, Not Required Primary [...] 10/09/2012 Adult Td,Tdap Booster 05/29/2020 05/29/2010, 006 INFLUENZA VACCINE (#1) 2025 01/03/2010 COVID-19 VACCINE ( season) 2025 07/02/2021, 12/25/2020, 11/21/2020 HIB VACCINES Completed 04/20/1994, [...] topic Medical Devices Not on file Insurance [place] [id number] MEDICARE REPLACEMENT CARE MEDICARE REPLACEMENT CARE MEDICARE REPLACEMENT CARE MEDICARE REPLACEMENT [facility] CARE MEDICARE REPLACEMENT Care Teams Child Support Specialist Relationship Specialty Start Date End Date Pcp, Not Required [address] [place] [id number] PCP - General 09/16/21 Additional Source Comments The information contained in this document represents components of the legal health record. It is not the complete legal health record.[facility]
--- OUTSIDE RECORDS SUMMARY | 2025-03-25 16:43 | XMS_ITS | Clinical Summary ---
Author Organization [facility] Address [address] [place] [address] Phone Care Team Providers Care Maintenance Millwright Name Role Phone Physician, No Pcp Primary Care Provider Unavaila ble Allergies No known active allergies Encounters Date Type Department Care Team Description 01/23/2025 8:29 PM EDT - 01/23/2025 9:21 PM EDT Emergency [facility] Emergency [address] [place] [address] Discharge Disposition: Left Against Medical [...] I high sensitivity (01/23/2025 8:46 PM EDT) [facility] High Sensitivity Troponin I <3 <=54 ng/L LAB CHEMISTRY METHOD 01/23/2025 9:22 PM EDT [facility] Blood Venous blood specimen / Unknown Venipuncture / Unknown 01/23/2025 8:46 PM EDT 01/23/2025 8:57 PM EDT Narrative [facility] - 01/23/2025 9:22 PM EDT High levels of biotin in samples may falsely decrease hsTroponin values. Use caution when interpreting hsTroponin results in patients taking biotin who exhibit renal impairment (eGFR <60) or in patients taking more than 20 mg/day of biotin. Hailee Beth DO LAB BLOOD ORDERABLES Alena l Result [facility] [address] [place] [address], * (ABNORMAL) CBC auto differential (01/23/2025 8:46 PM EDT) [facility] WBC 12.6(H) 4.8 - 10.8 K/[facility] LAB [facility]OLOG[facility] RBC 4.40 3.80 - 4.80 M/mcL LAB HEMETOLOGY METHOD 01/23/2025 9:02 PM [facility] Hemoglobin 12.5 11.5 - 16.0 g/dL LAB HEMETOLOGY METHOD 01/23/2025 9:02 PM [facility] Hematocrit 37.9 35.0 - 47.0 % LAB HEMETOLOGY METHOD 01/23/2025 9:02 PM [facility] MCV 85.6 79.0 - 98.0 FL LAB HEMETOLOGY METHOD 01/23/2025 9:02 PM [facility] MCH 28.2 27.0 - 32.0 pcg LAB HEMETOLOGY METHOD 01/23/2025 9:02 PM [facility] MCHC 33.0 32.0 - 37.0 g/dL LAB HEMETOLOGY METHOD 01/23/2025 9:02 PM [facility] RDW 13.9 11.0 - 15.0 % LAB HEMETOLOGY METHOD 01/23/2025 9:02 PM [facility] Platelets 437(H) 130 - 400 K/mcL LAB HEMETOLOGY METHOD 01/23/2025 9:02 PM [facility] MPV 9.2 7.0 - 11.0 FL LAB HEMETOLOGY METHOD 01/23/2025 9:02 PM [facility] NRBC 0.0 <1.0 % LAB HEMETOLOGY METHOD 01/23/2025 9:02 PM [facility] NRBC Absolute 0.00 <0.10 K/mcL LAB HEMETOLOGY METHOD 01/23/2025 9:02 PM [facility] Neutrophils Relative 74.0 % LAB HEMETOLOGY METHOD 01/23/2025 9:02 PM [facility] Lymphocytes Relative 17.1 % LAB HEMETOLOGY METHOD 01/23/2025 9:02 PM [facility] Monocytes Relative 6.8 % LAB HEMETOLOGY METHOD 01/23/2025 9:02 PM [facility] Eosinophils Relative 1.5 % LAB HEMETOLOGY METHOD 01/23/2025 9:02 PM [facility] Basophils Relative 0.4 % LAB HEMETOLOGY METHOD 01/23/2025 9:02 PM [facility] Immature Granulocytes Relative 0.2 % LAB HEMETOLOGY METHOD 01/23/2025 9:02 PM [facility] Neutrophils Absolute 9.31(H) 1.50 - 7.00 K/mcL LAB HEMETOLOGY METHOD 01/23/2025 9:02 PM [facility] Lymphocytes Absolute 2.15 1.00 - 5.00 K/mcL LAB HEMETOLOGY METHOD 01/23/2025 9:02 PM [facility] Monocytes Absolute 0.85 0.20 - 1.00 K/mcL LAB HEMETOLOGY METHOD 01/23/2025 9:02 PM [facility] Eosinophils Absolute 0.19 0.00 - 0.50 K/mcL LAB HEMETOLOGY METHOD 01/23/2025 9:02 PM [facility] Basophils Absolute 0.05 0.00 - 0.20 K/mcL LAB HEMETOLOGY METHOD 01/23/2025 9:02 PM [facility] Immature Granulocytes Absolute 0.03 0.00 - 0.03 K/mcL LAB HEMETOLOGY METHOD 01/23/2025 9:02 PM [facility] Blood Venous blood specimen / Unknown Venipuncture / Unknown 01/23/2025 8:46 PM EDT 01/23/2025 8:57 PM EDT us Ting Ho Jacoby Beth DO LAB BLOOD ORDERABLES Alena l Result [facility] [address] [place] [address], [place] [phone] * Magnesium (01/23/2025 8:46 PM EDT) Magnesium 2.2 1.9 - 2.6 mg/dL LAB CHEMISTRY METHOD 01/23/2025 9:18 PM EDT [facility] Blood Venous blood specimen / Unknown Venipuncture / Unknown 01/23/2025 8:46 PM EDT 01/23/2025 8:57 PM EDT Hailee Beth LAB BLOOD ORDERABLES Alena l Result Performing Organization Address City/[facility]/ZIP Co de Phone Number [facility] [address] [place] [address], [place] [phone] * Basic metabolic panel (01/23/2025 8:46 PM EDT) Sodium 140 133 - 145 mmol/L LAB CHEMISTRY METHOD 01/23/2025 9:18 PM [facility] Potassium 3.6 3.5 - 5.5 mmol/L LAB CHEMISTRY METHOD 01/23/2025 9:18 PM [facility] Chloride 103 96 - 110 mmol/L LAB CHEMISTRY METHOD 01/23/2025 9:18 PM T [facility] CO2 29 21 - 32 mmol/L LAB CHEMISTRY METHOD 01/23/2025 9:18 PM EDT [facility] Anion Gap 8 3 - 11 LAB CHEMISTRY METHOD 01/23/2025 9:18 PM T [facility] Glucose 78 70 - 100 mg/dL LAB CHEMISTRY METHOD [facility]25 9:[facility] BUN 8 5 - 25 mg/dL LAB CHEMISTRY METHOD 01/23/2025 9:18 PM EDT [facility] Creatinine 0.67 0.50 - 1.10 mg/dL LAB CHEMISTRY METHOD 01/23/2025 9:18 PM EDT [facility] eGFR 119 >=60 mL/min/1. 73m2 LAB CHEMISTRY METHOD 01/23/2025 9:18 PM EDT [facility] Comment:Calculation based on the Chronic Kidney Disease Epidemiology Collaboration (CKD-EPI) equation refit without adjustment for race. BUN/Creatinine Ratio 11.9 LAB CHEMISTRY METHOD 01/23/2025 9:18 PM EDT [facility] Calcium 10.1 8.5 - 10.5 mg/dL LAB CHEMISTRY METHOD 01/23/2025 9:18 PM EDT [facility] Blood Venous blood specimen / Unknown Venipuncture / Unknown 01/23/2025 8:46 PM EDT 01/23/2025 8:57 PM EDT us Hailee Talamantesny Kirit DO LAB BLOOD ORDERABLES Alena l Result [facility] [address] [place] [address], * ECG 12 lead (01/23/2025 8:36 PM EDT) Ventricular Rate ECG 70 BPM GEMUSE Atrial Rate 70 BPM GEMUSE P-R Interval 148 ms GEMUSE QRS Duration 84 ms GEMUSE Q-T Interval 386 ms GEMUSE QTc 416 ms GEMUSE P Wave [place] 55 degrees GEMUSE R [place] 10 degrees GEMUSE T [place] 48 degrees GEMUSE ECG Interpretation Normal sinus [...] RESULTING AGENCY - 12/22/2017 1:38 PM EDT [id number] THINPREP PAP, IMAGED: ATYPICAL SQUAMOUS CELLS OF [...] Most Recently Relevant to Health Maintenance Insurance [facility] MEDICARE Member Subscriber Plan / Payer (Ef fective 2023-Present) Name:TIKA MENEZES Relation to Subscriber:Self Name:Tika Menezes Payer ID:[id number] Group ID:[id number] Type:Not on file Address: [place] [address] [address] [phone] [employer] MEDICARE Member Subscriber Plan / Payer (Ef fective 2023-Present) Name:TIKA MENEZES Relation to Subscriber:Self Name:Tika Menezes Payer ID:[id number] Group ID:[id number] Type:Not on file Address: [facility] [address] [phone] Care Teams Maintenance Millwright Relationship Specialty Start Date End Date Physician, No Pcp PCP - General 01/23/25
== END 2025-03-25 16:47 | disposition home or self-care (01) ==
LOC: HO.HMCH 15:53
DX: I10 Essential (primary) hypertension (principal); F31.81 Bipolar II disorder; F41.9 Anxiety disorder, unspecified; E03.9 Hypothyroidism, unspecified; M54.50 Low back pain, unspecified; J45.909 Unspecified asthma, uncomplicated; E78.5 Hyperlipidemia, unspecified; G47.00 Insomnia, unspecified; F90.9 Attention-deficit hyperactivity disorder, unspecified type

== ENCOUNTER → 2025-03-25 15:53 | Outpatient (BNVA) | payer OTHER, SELFPAY | DX: M79.7 Fibromyalgia (principal); E03.9 Hypothyroidism, unspecified; E78.00 Pure hypercholesterolemia, unspecified; F41.9 Anxiety disorder, unspecified; I10 Essential (primary) hypertension; M54.50 Low back pain, unspecified; J45.909 Unspecified asthma, uncomplicated; F31.81 Bipolar II disorder; G47.00 Insomnia, unspecified; F90.9 Attention-deficit hyperactivity disorder, unspecified type | CPT/HCPCS: 99212 ==

== ENCOUNTER 2025-04-02 13:12 | Outpatient (REF) | payer OTHER, SELFPAY ==
--- OUTSIDE RECORDS SUMMARY | 2024-01-30 07:00 | XMS_ITS ---
[facility] Address [address] [place] [address] Care Team Providers Care Vaccinator Name Role Phone VANESADaniel JOSIANE Unavailable [phone] Medications Medication SIG (Take, Route, Fr equency, Duration) Notes Start Date End Date Status Pregabalin 25 MG 1 capsule Orally twi ce a day; Duration: 30 days Active Mounjaro 2.5 MG/0.5ML 2.5mg Subcutaneous weekly; Duration: 30 days Active Encounters Encounter Location Date Provider Diagnosis [facility] [address] [id number] 01/30/2024 JOSIANE VARGAS BMI 25.0-25.9,adult Z68.25 ; [...] minimum of 6 months The most recent [place] Association of clinical endocrinologists and [place] [employer] of endocrinology guidelines recommend patients who [...] track activity level. Consider using apps like Bizimply, Endorse.mepal, lose it, stick as needed for self-monitoring and weight management. Consider group exercises. Consider hiring a personal care aid. Regular exercise is berrios to sustainable health [...] counseling and psychiatry and Dr Jarrell at [facility]. We would like to cover regular topics [...] software and direct typing Please excuse inadvertent managed care liaison or typing errors, or uncorrected word substitutions Although every attempt has been made by the provider to proofread this document, occasional misspellings and typographical errors may still be present Due to the previous pandemic, and the use of personal protective equipment (PPE) This may decrease voice recognition accuracy Inadvertent managed care liaison errors may occur 01/30/2024 Overweight (BMI 25.0-29.9) [...] minimum of 6 months The most recent [place] [employer] of clinical endocrinologists and [place] [employer] of endocrinology guidelines recommend patients who [...] track activity level. Consider using apps like Bizimply, myfitVisionGatepal, lose it, stick as needed for self-monitoring and weight management. Consider group exercises. Consider hiring a personal care aid. Regular exercise is berrios to sustainable health [...] counseling and psychiatry and Dr Jarrell at [facility]. We would like to cover regular topics [...] software and direct typing Please excuse inadvertent managed care liaison or typing errors, or uncorrected word substitutions Although every attempt has been made by the provider to proofread this document, occasional misspellings and typographical errors may still be present Due to the previous pandemic, and the use of personal protective equipment (PPE) This may decrease voice recognition accuracy Inadvertent managed care liaison errors may occur 01/30/2024 Dietary counseling and [...] minimum of 6 months The most recent [place] Association of clinical endocrinologists and [place] [employer] of endocrinology guidelines recommend patients who [...] track activity level. Consider using apps like Bizimply, myfitnesspal, lose it, stick as needed for self-monitoring and weight management. Consider group exercises. Consider hiring a personal care aid. Regular exercise is berrios to sustainable health [...] counseling and psychiatry and Dr Jarrell at [facility]. We would like to cover regular topics [...] software and direct typing Please excuse inadvertent managed care liaison or typing errors, or uncorrected word substitutions Although every attempt has been made by the provider to proofread this document, occasional misspellings and typographical errors may still be present Due to the previous pandemic, and the use of personal protective equipment (PPE) This may decrease voice recognition accuracy Inadvertent managed care liaison errors may occur 01/30/2024 Bipolar 1 disorder [...] minimum of 6 months The most recent [place] Association of clinical endocrinologists and [place] [employer] of endocrinology guidelines recommend patients who [...] track activity level. Consider using apps like Bizimply, Endorse.mepal, lose it, stick as needed for self-monitoring and weight management. Consider group exercises. Consider hiring a personal care aid. Regular exercise is berrios to sustainable health [...] counseling and psychiatry and Dr Jarrell at [facility]. We would like to cover regular topics [...] software and direct typing Please excuse inadvertent managed care liaison or typing errors, or uncorrected word substitutions Although every attempt has been made by the provider to proofread this document, occasional misspellings and typographical errors may still be present Due to the previous pandemic, and the use of personal protective equipment (PPE) This may decrease voice recognition accuracy Inadvertent managed care liaison errors may occur 01/30/2024 Hypothyroidism, unspecified type [...] minimum of 6 months The most recent [place] [employer] of clinical endocrinologists and [place] [employer] of endocrinology guidelines recommend patients who [...] track activity level. Consider using apps like Bizimply, Endorse.mepal, lose it, stick as needed for self-monitoring and weight management. Consider group exercises. Consider hiring a personal care aid. Regular exercise is berrios to sustainable health [...] counseling and psychiatry and Dr Jarrell at [facility]. We would like to cover regular topics [...] software and direct typing Please excuse inadvertent managed care liaison or typing errors, or uncorrected word substitutions Although every attempt has been made by the provider to proofread this document, occasional misspellings and typographical errors may still be present Due to the previous pandemic, and the use of personal protective equipment (PPE) This may decrease voice recognition accuracy Inadvertent managed care liaison errors may occur Plan Of Treatment Medication Medication Name Sig Start Date Stop Date Notes Pregabalin 25 MG 1 capsule Orally twi ce a day; Duration: 30 days Mounjaro 2.5 MG/0.5ML 2.5mg Subcutaneous weekly; Duration: 30 days Progress Notes * Tika MENEZESDOB:1990 (34 yo F)Acc No.[id number]:01/30/2024 Patient: Tika ANTONIO Provider: Francisco VARGAS NP :1990 A ge:33 Y S ex:Female Date:01/30/2024 Address:[address] [place], [place] [id number] Subjective: * Chief Complaints: * * HPI: [...] Normal LH FSH and estradiol Health maintenance OFFICE MAIL CLERK Pap: Ever Mirza, UTD Mammography: requesting given [...] 25.0-29.9) - E66.3 (Primary) 2 . B PR 25.0-25.9,adult - Z68.25 3 . D ietary [...] minimum of 6 months The most recent [place] [employer] of clinical endocrinologists and [place] [employer] of endocrinology guidelines recommend patients who [...] track activity level. Consider using apps like Bizimply, myfitnesspal, lose it, stick as needed for self-monitoring and weight management. Consider group exercises. Consider hiring a personal care aid. Regular exercise is berrios to sustainable health [...] counseling and psychiatry and Dr Jarrell at [facility]. We would like to cover regular topics [...] software and direct typing Please excuse inadvertent managed care liaison or typing errors, or uncorrected word substitutions Although every attempt has been made by the provider to proofread this document, occasional misspellings and typographical errors may still be present Due to the previous pandemic, and the use of personal protective equipment (PPE) This may decrease voice recognition accuracy Inadvertent managed care liaison errors may occur. Plan: * Treatment: 2. B ipolar 1 disorder Start Mounjaro Solution Pen-injector, 2.5 MG/0.5ML, 2.5mg, Subcutaneous, weekly, 30 days, 4 Pen Needle, Refills 3. * Images: Billing Information: * Visit Code: * Procedure Codes: * Electronic signature of MAN VARGAS on 04/02/2025 at 04:12 PM EDT Sign off status: Pending * Provider: Francisco VARGAS NP Date: 01/30/2024 Generated for Ayan cohen/Rylee/Mat on: 0 04/02/2025 04:12 PM EDT History and Physical Notes * [...] Normal LH FSH and estradiol Health maintenance OFFICE MAIL CLERK Pap: Ever Mirza, UTD Mammography: requesting given maternal hx of breast CA* Flu 2022 defers Tdap utd COVID Mrna x 4 Examination Category Sub-Category Detail Notes Category Not es General Examination GENERAL APPEARANCE: in no ac [place] distress, well developed, well nourished, visibly upset [...]
--- OUTSIDE RECORDS SUMMARY | 2024-04-25 07:00 | XMS_ITS ---
Author Organization [facility] [address] Address [address] [place] [address] Care Team Providers Care Dress Designer Name Role Phone JOSIANE VARGAS Unavailable [phone] REASON FOR VISIT see encounter Medications Medication [...] Location Date Provider Diagnosis [facility] [address] [place] [phone] 04/25/2024 JOSIANE VARGAS Plan Of Treatment No Information Progress Notes * Tika MENEZESDOB:1990 (34 yo F)Acc No.[id number]:04/25/2024 Progress Notes Patient: Tika ANTONIO Provider: Francisco VARGAS NP :1990 A ge:33 Y S ex:Female Date:04/25/2024 Address:[address] [place] [phone] Subjective: * Chief Complaints: * 1 . [...] Information: * Visit Code: * Procedure Codes: 04325 NO SHOW OFFICE VISIT. Care Plan Details* * Electronic signature of MAN VARGAS on 04/02/2025 at 04:13 PM EDT Sign off status: Pending * Provider: Francisco VARGAS NP Date: Generated for Ayan cohen/Rylee/Mat on: 0 04/02/2025 04:13 PM EDT History and Physical Notes * [...] no ac samir distress, well developed, well nourished HEAD: normocephalic, [...]
--- OUTSIDE RECORDS SUMMARY | 2024-08-01 06:00 | XMS_ITS ---
Author Organization [facility] [address] Address [address] [place] [address] Care Team Providers Care Archivist Military History Name Role Phone JOSIANE VARGAS Unavailable [phone] Encounters Encounter Location Date Provider Diagnosis [facility] [address] [address] 08/01/2024 JOSIANE VARGAS Plan Of Treatment No Information Progress Notes * Tika MENEZESDOB:1990 (34 yo F)Acc No.[id number]:08/01/2024 Progress Note Patient: Tika ANTONIO Provider: Francisco VARGAS NP :1990 A ge:33 Y S ex:Female Date:08/01/2024 Address:[address] [place], [place] [id number] Subjective: * Chief Complaints: * * Medical History: Objective: * Vitals: Assessment: Plan: * Treatment: * Images: Billing Information: * Visit Code: * Procedure Codes: Care Plan Details* * Electronic signature of MAN VARGAS on 04/02/2025 at 04:12 PM EDT Sign off status: Pending * Provider: Francisco VARGAS NP Date: 0 08/01/2024 Generated for Ayan cohen/Rylee/Reinaitting on: 04/02/2025 04:12 PM EDT
--- NOTE | ~2025-04-02 | MM_ITS ---
EXAMINATION: MM DIAGNOSTIC DIGITAL BREAST TOMOSYNTHESIS, RIGHT Limited right breast ultrasound. CLINICAL INFORMATION: Call back from screening for asymmetry in the retroareolar region of the right breast posterior depth on MLO view. Patient has an implanted piercings over the sternum just adjacent to this asymmetry and had another implanted piercing which was removed similar area. COMPARISON: Mammography: Priors on PACS. TECHNIQUE: Digital breast tomosynthesis is performed in both the craniocaudal and mediolateral oblique views along with computer-aided detection (CAD). Synthesized 2D images are generated from the tomosynthesis. FINDINGS: The breasts are heterogeneously dense, which may obscure small masses (ACR BI-RADS breast composition Category c). Asymmetry retroareolar region posterior depth on MLO view persists on additional imaging projections and lies adjacent to and implant piercing region has a history of an additional previous implanted piercing similar area which was removed. No suspicious calcifications or other abnormal findings. Targeted color Doppler ultrasound scanning in the retroareolar region posterior depth sternal area area of asymmetry demonstrates normal fibronodular breast tissue. There is no sonographic abnormal finding. MM/MM tomosynthesis added views R IMPRESSION: Right breast asymmetry without sonographic correlate this could represent changes from prior implanted metallic jewelry, recommend six-month follow-up mammography for further evaluation of stability. ASSESSMENT: BI-RADS BI-RADS 3 - Probably benign finding(s) - 6 month follow-up suggested RECOMMENDATION: 6 Month F/U Results were provided to the patient at time of visit by the technologist. This patient's information was entered into a reminder system with a target due date for their next mammogram. Electronically signed by: Tiffany Ruff DO 04/02/2025 02:41 PM EDT
--- OUTSIDE RECORDS SUMMARY | 2025-04-02 16:13 | XMS_ITS | Continuity of Care Document ---
Author Name Albin Serna Address [address] [place] [id number] Organization Unknown Address [address] [place] [id number] Medications No known medications Problems No known problems
--- OUTSIDE RECORDS SUMMARY | 2025-04-02 16:13 | XMS_ITS | Continuity of Care Document ---
Author Name Albin Serna Address [address] [place] [address] Organization Unknown Address [address] [place] [address] Medications No known medications Problems No known problems
--- OUTSIDE RECORDS SUMMARY | 2025-04-02 16:13 | XMS_ITS | Continuity of Care Document ---
Author Name [facility] Address [address] [place] [address] Organization Unknown Address [address] [place] [address] Medications No known medications Problems No known problems
--- OUTSIDE RECORDS SUMMARY | 2025-04-02 16:13 | XMS_ITS | Patient Health Record ---
Author Organization [facility] Address [address] [place] [address] Care Team Providers Care Mirror Painter Name Role Phone JOSIANE VARGAS Unavailable [phone] Allergies Allergen (clinical drug ingredient) Drug/Non Drug Allergy documented on EMR Reaction Allergy Type Onset Date Status metoclopramide Reglan rash Drug Allergy Ac tive Compazine hives Drug Allergy Active Reason For Referral No Information Medications Medication [...] Marijuana license, vape pen- weed Originally from [place] Tob: Former tobacco abuse ETOH: None Medical Marijuana license, vape pen- weed Originally from [place] Tob: Former tobacco abuse ETOH: None Medical Marijuana license, vape pen- weed Originally from [place] Tob: Not currenty ETOH: None Medical Marijuana license Tob: Not currenty ETOH: None Medical Marijuana license Tob: Not currenty ETOH: None Medical Marijuana license Tob: Not currenty ETOH: None Medical Marijuana license Tob: Former tobacco abuse ETOH: None Medical Marijuana license, vape pen- weed Originally from [place] Tob: Not currenty ETOH: None Medical Marijuana license Tob: Not currenty ETOH: None Medical Marijuana license Tob: Not currenty ETOH: None Medical Marijuana license Tob: Former tobacco abuse ETOH: None Medical Marijuana license, vape pen- weed Originally from [place] Tob: Not currenty ETOH: None Medical Marijuana license Tob: Not currenty ETOH: None Medical Marijuana license Tob: Not currenty ETOH: None Medical Marijuana license Tob: Not currenty ETOH: None Medical Marijuana license Tob: Former tobacco abuse ETOH: None Medical Marijuana license, vape pen- weed Originally from [place] Problems Problem Type SNOMED Code ICD Code Onset Dates Problem Status W/U Status Risk Notes Problem Vitamin D deficiency (15508857) Vitamin D deficiency, unspecified (E55.9) Active confirmed Problem Obesity (159334313) Other obesity (E66.8) Active confirmed Problem Mixed hyperlipidemia (401500931) Mixed hyperlipidemia (E78.2) Active confirmed Problem Postmenopausal bleeding (50661566) Postmenopausal bleeding (N95.0) Active confirmed Problem Diabetes mellitus screening (841476707) Encounter for screening for diabetes mellitus (Z13.1) Active confirmed Problem Screening for cardiovascular system disease (890747738) Encounter for screening for cardiovascular disorders (Z13.6) Active confirmed Problem Hyperlipidaemia (72989001) Hyperlipidemia, unspecified hyperlipidemia type (E78.5) Active confirmed Problem Anxiety (53305012) Anxiety (F41.9) Active confi rmed Problem Hyperlipoproteinemia (3259680) 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) Active confirmed Problem Hypothyroidism (49830608) Hypothyroidism, unspecified type (E03.9) Active confirmed Problem Bipolar 1 disorder (456224513) Bipolar 1 disorder (F31.9) Active confirmed Problem Obese class I (finding) (370043042053332) Obesity (BMI 30.0-34.9) (E66.9) Active confirmed Problem Pain of knee region (finding) (0372378489) Knee pain, unspecified chronicity, unspecified laterality (M25.569) Active confirmed Problem Gastroesophageal reflux disease without esophagitis (875707070) Gastroesophageal reflux disease without esophagitis (K21.9) Active confirmed Problem Body mass index 30.0 0 to 34.99 (426876661677805) Body mass index [BMI] 32.0-32.9, adult (Z68.32) Active confirmed Problem Hot flashes (178049828) Hot flashes (R23.2) Active confirmed Problem Body mass index 30.0 0 to 34.99 (611574102918283) BMI 31.0-31.9,adult (Z68.31) Active confirmed Problem Body mass index 30+ - obesity (177540018) BMI 30.0-30.9,adult (Z68.30) Active confirmed Problem Stress (72427213) Stress (F43.9) Active confirm ed Problem Breast cancer screening (938173665) Encounter for screening mammogram for breast cancer (Z12.31) Active confirmed Problem Cough (48801316) Cough (R05.9) Active confirmed Problem Bipolar disorder (82309363) Bipolar 1 disorder, depressed (F31.9) Active confirmed Problem Excessive and frequent menstruation (192007342) Menorrhagia with regular cycle (N92.0) Active confirmed Problem Asthma (586103169) Asthma (J45.909) Active conf irmed Problem Acute pharyngitis (134734090) Acute sore throat (J02.9) Active confirmed Problem Tension headache (775509357) Tension headache (G44.209) Active confirmed Encounters Encounter Location Date Provider Diagnosis [facility] [address] [address] 04/25/20[facility] [address] [address] 04/04/2024 JOSIANE VARGAS Overweight (BMI 25.0-29.9) E66.3 [facility] [address] [address] 04/20/2024 [facility] [address] [address] 04/24/2024 [facility] [address] [address] 04/25/2024 [facility] [address] [address] 07/09/2024 JOSIANE VARGAS [facility] [address] [place] [address] 08/05/2024 JOSIANE VARGAS Assessments Encounter Date Diagnosis (ICD Code) Assessment Notes Treatment Notes Treatment Clinical Notes Section Notes 04/04/2024 Overweight (BMI 25.0-29.9) (ICD-10 - E66.3) Plan Of Treatment Pending Test Test Name Order Date MAMMOGRAM, SCREENING 07/27/2023 XR Chest 2 Views 04/26/2022 XR Foot 2 Views RT 09/05/2022 XR Knee 1-2 Views LT 04/26/2022 XR Knee 3 Views LT 04/12/2022 LIPID PANEL, STANDARD 02/01/2023 LIPID PANEL, STANDARD 03/21/2022 IRON, TIBC AND FERRITIN PANEL 03/28/2024 COMPREHENSIVE METABOLIC PANEL 02/01/2023 COMPREHENSIVE METABOLIC PANEL 03/21/2022 CBC (INCLUDES DIFF/PLT) 02/01/2023 CBC (INCLUDES DIFF/PLT) 03/28/2024 CBC (INCLUDES DIFF/PLT) 03/21/2022 URINALYSIS, COMPLETE 03/21/2022 URINALYSIS, COMPLETE 02/01/2023 HEMOGLOBIN [...] [employer] Options [address] [place] [address] [phone] [id number] Tika Meyer Self - patient is the insured Medications Administered Medication Instructions Date of Administration Dosage Notes MICC B12 INJECTION 04/26/2022 lot # [id number] MICC B12 INJECTION 05/04/2022 lot # [id number] MICC B12 INJECTION 05/19/2022 1 Lot #: [id number] MICC B12 INJECTION 09/05/2022 [id number] MICC B12 INJECTION 09/19/2022 1 mL Lot [id number] MICC B12 INJECTION 09/29/2022 lot # [id number] MICC B12 INJECTION 10/11/2022 lot # [id number] MICC B12 INJECTION 02/01/2023 lot # [id number] MICC B12 INJECTION 02/14/2023 1 MICC B12 INJECTION 04/18/2023 MICC B12 INJECTION 04/25/2023 LLQ SQ MICC B12 INJECTION 05/09/2023 1 mL MICC B12 INJECTION 05/16/2023 lot#[id number] MICC B12 INJECTION 06/20/2023 1ml MICC B12 INJECTION 07/19/2023 1 mL Semaglutide 04/11/2023 0.25 mg LRQ SQ Semaglutide 04/18/2023 0.25 mg Semaglutide 04/25/2023 0.5 mg LLQ SQ Semaglutide 05/09/2023 0.25 mL Semaglutide 05/16/2023 lot#[id number] 0.5mg Semaglutide 06/20/2023 .25 Semaglutide 07/19/2023 0.25 [...]
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
--- OUTSIDE RECORDS SUMMARY | 2025-04-02 16:13 | XMS_ITS | Clinical Summary ---
Author Organization [facility] Address [address] [place] [address] Phone Care Team Providers Care Pattern Chain Maker Supervisor Name Role Phone Physician, No Pcp Primary Care Provider Unavaila ble Allergies No known active allergies Encounters Date Type Department Care Team Description 01/23/2025 8:29 PM EDT - 01/23/2025 9:21 PM EDT Emergency [facility] Emergency [address] [place] [address] Discharge Disposition: Left Against Medical [...] 08/22/2023 Social Influencers of Health Screening 08/22/2023 Depression Screening 07/24/2024 COVID-19 Vaccine ( season) 2025 09/29/2021, 07/02/2021, 12/25/2020, Additional history exists Influenza Vaccine (#1) 2025 Hypertension/CHF/CAD Annual BMP [...] I high sensitivity (01/23/2025 8:46 PM EDT) [facility] High Sensitivity Troponin I <3 <=54 ng/L [...] Alena l Result [facility] [address] [place] [address], * (ABNORMAL) CBC auto differential (01/23/2025 8:46 PM EDT) [facility] WBC 12.6(H) 4.8 - 10.8 K/[facility] LAB H[facility]OLOG[facility] RBC 4.40 3.80 - 4.80 M/mcL LAB HEMETOLOGY METHOD 01/23/2025 9:02 PM [facility] Hemoglobin 12.5 11.5 - 16.0 g/dL LAB HEMETOLOGY METHOD 01/23/2025 9:02 PM [facility] Hematocrit 37.9 35.0 - 47.0 % LAB HEMETOLOGY METHOD 01/23/2025 9:02 PM [facility] MCV 85.6 79.0 - 98.0 FL LAB HEMETOLOGY METHOD 01/23/2025 9:02 PM [facility] MCH 28.2 27.0 - 32.0 pcg LAB HEMETOLOGY METHOD 01/23/2025 9:02 PM [facility] MCHC 33.0 32.0 - 37.0 g/dL LAB HEMETOLOGY METHOD 01/23/2025 9:02 PM [facility] RDW 13.9 11.0 - 15.0 % LAB HEMETOLOGY METHOD 01/23/2025 9:02 PM [facility] Platelets 437(H) 130 - 400 K/mcL LAB HEMETOLOGY METHOD 01/23/2025 9:02 PM [facility] MPV 9.2 7.0 - 11.0 FL LAB HEMETOLOGY METHOD 01/23/2025 9:02 PM [facility] NRBC 0.0 <1.0 % LAB HEMETOLOGY METHOD 01/23/2025 9:02 PM [facility] NRBC Absolute 0.00 <0.10 K/mcL LAB HEMETOLOGY METHOD 01/23/2025 9:02 PM [facility] Neutrophils Relative 74.0 % LAB HEMETOLOGY METHOD 01/23/2025 9:02 PM [facility] Lymphocytes Relative 17.1 % LAB HEMETOLOGY METHOD 01/23/2025 9:02 PM [facility] Monocytes Relative 6.8 % LAB HEMETOLOGY METHOD 01/23/2025 9:02 PM [facility] Eosinophils Relative 1.5 % LAB HEMETOLOGY METHOD 01/23/2025 9:02 PM [facility] Basophils Relative 0.4 % LAB HEMETOLOGY METHOD 01/23/2025 9:02 PM [facility] Immature Granulocytes Relative 0.2 % LAB HEMETOLOGY METHOD 01/23/2025 9:02 PM [facility] Neutrophils Absolute 9.31(H) 1.50 - 7.00 K/mcL LAB HEMETOLOGY METHOD 01/23/2025 9:02 PM [facility] Lymphocytes Absolute 2.15 1.00 - 5.00 K/mcL LAB HEMETOLOGY METHOD 01/23/2025 9:02 PM [facility] Monocytes Absolute 0.85 0.20 - 1.00 K/mcL LAB HEMETOLOGY METHOD 01/23/2025 9:02 PM [facility] Eosinophils Absolute 0.19 0.00 - 0.50 K/mcL LAB HEMETOLOGY METHOD 01/23/2025 9:02 PM [facility] Basophils Absolute 0.05 0.00 - 0.20 K/mcL LAB HEMETOLOGY METHOD 01/23/2025 9:02 PM [facility] Immature Granulocytes Absolute 0.03 0.00 - 0.03 K/mcL LAB HEMETOLOGY METHOD 01/23/2025 9:02 PM [facility] Blood Venous blood specimen / Unknown Venipuncture / Unknown 01/23/2025 8:46 PM EDT 01/23/2025 8:57 PM EDT us Ting Ho Jacoby Beth DO LAB BLOOD ORDERABLES Alena l Result [facility] [address] [place] [address], [place] [phone] * Magnesium (01/23/2025 8:46 PM EDT) Magnesium 2.2 1.9 - 2.6 mg/dL LAB CHEMISTRY METHOD 01/23/2025 9:18 PM EDT [facility] Blood Venous blood specimen / Unknown Venipuncture / Unknown 01/23/2025 8:46 PM EDT 01/23/2025 8:57 PM EDT Hailee Beth LAB BLOOD ORDERABLES Alena l Result Performing Organization Address City/[facility]/ZIP Co de Phone Number [facility] [address] [place] [address], [place] [phone] * Basic metabolic panel (01/23/2025 8:46 PM EDT) Sodium 140 133 - 145 mmol/L LAB CHEMISTRY METHOD 01/23/2025 9:18 PM [facility] Potassium 3.6 3.5 - 5.5 mmol/L LAB CHEMISTRY METHOD 01/23/2025 9:18 PM [facility] Chloride 103 96 - 110 mmol/L LAB CHEMISTRY METHOD 01/23/2025 9:18 PM T [facility] CO2 29 21 - 32 mmol/L LAB CHEMISTRY METHOD 01/23/2025 9:18 PM EDT [facility] Anion Gap 8 3 - 11 LAB CHEMISTRY METHOD 01/23/2025 9:18 PM T [facility] Glucose 78 70 - 100 mg/dL LAB CHEMISTRY METHOD 01/23/2025 9:[facility] BUN 8 5 - [...] Alena l Result [facility] [address] [place] [address], * ECG 12 lead (01/23/2025 8:36 PM EDT) Ventricular Rate ECG 70 BPM GEMUSE Atrial Rate 70 BPM GEMUSE P-R Interval 148 ms GEMUSE QRS Duration 84 ms GEMUSE Q-T Interval 386 ms GEMUSE QTc 416 ms GEMUSE P Wave [place] 55 degrees GEMUSE R [place] 10 degrees GEMUSE T [place] 48 degrees GEMUSE ECG Interpretation Normal sinus [...] RESULTING AGENCY - 12/22/2017 1:38 PM EDT [id number] THINPREP PAP, IMAGED: ATYPICAL SQUAMOUS CELLS OF [...] Most Recently Relevant to Health Maintenance Insurance [facility] MED[facility] Member Subscriber Plan / Payer (Ef fective 2023-Present) Name:TIKA MENEZES Relation to Subscriber:Self Name:Tika Menezes Payer ID:[id number] Group ID:[id number] Type:Not on file Address: [place] [address] [place] [address] [employer] MEDIC[employer] Member Subscriber Plan / Payer (Ef fective 2023-Present) Name:TIKA MENEZES Relation to Subscriber:Self Name:Tika Menezes Payer ID:[id number] Group ID:[id number] Type:Not on file Address: [facility] [address] [place] [address] Care Teams Pattern Chain Maker Supervisor Relationship Specialty Start Date End Date Physician, No Pcp PCP - General 01/23/25
--- OUTSIDE RECORDS SUMMARY | 2025-04-02 16:13 | XMS_ITS | Clinical Summary ---
Author Organization [facility] Address [address] [place], [place] [id number] Phone Care Team Providers Care Cultural Historian Name Role Phone Pcp, Not Required Primary [...] Devices Not on file Insurance [place] [id number] MEDICARE REPLACEMENT CARE MEDICARE REPLACEMENT CARE MEDICARE REPLACEMENT CARE MEDICARE REPLACEMENT [facility] ONE CARE MEDICARE REPLACEMENT Care Teams Cultural Historian Relationship Specialty Start Date End Date Pcp, Not Required [address] [place] [address] PCP - General 09/16/21 Additional Source Comments The information contained in this document represents components of the legal health record. It is not the complete legal health record.[facility]
--- OUTSIDE RECORDS SUMMARY | 2025-04-02 16:13 | XMS_ITS | Encounter Summary ---
Author Organization [facility] Address [address] [place] [address] Encounters * CPT with Albin Serna at [employer] on 2025-01-24 { reasonForRequest : Patient is having a Crysis and is in pain, and something is in pain. , patientReports : , denies :[], chiefComplaints : Headache , pmh : Anxiety Disorder, Hypothyroidism, Migraine , a llergies : Compazine, Reglan, Toradol, Bactrim , otherAllergies :null,&quot ;painAssessment : , visitOutcome : , additionalComments": Member calling in from the ER- blood pressure was high but now it is normal and the member left the ER. She still has a headache. The ER did labs and did an EKG and she is refusing to stay.She just wants to go home and be seen by [facility]. Worried about the high blood pressure and headache. \n\n34 y.o female complains of Headache\nI provided information on the mobile health provider response time and advised the patient and/or caregiver to monitor reported signs and symptoms. I discussed the warning signs of when to seek emergency care. Yael Smith RN \n\n } Responded to residence for a 34 y/o female with complaint of a headache. Pt had been at the hospital and left AMA and is now seeking care from [facility]. Pt states that she had a elevated blood pressure but pressure had decreased while at the hospital. Pt found outside of residence, locked out, with pt boyfriend at her side. Pt flagged Provider down in vehicle upon arrival. Pt states that she had left the hospital AMA after the hospital had obtained an ECG and taken labs because the hospital was taking too long for treatment and pt needed to haveher headache managed faster. Pt states that she has a history of severe headaches and pt has anxiety, today pt having an anxiety crisis due to headache and blood pressure being elevated causing pt anxiety to be uncontrollable, pt feeling like her anxiety would be better managed at home with [facility] provider managing pt care, so pt left the hospital. Pt states that she feels a little better knowingher blood pressure is regulating, but her head is still hurting severely. Pt states pain is in her forehead and temples. Pt also states that she feels dehydrated and states that she typically experiences headaches of this magnitude when pt is dehydrated or has not drank sufficient amounts of water.Pt seeking care for headache. Provider found pt CAOX4, ambulatory outside, airway open and patent, no distress noted. Provider able to find utilize pt neighbor porch for pt care, off side of road and in a semi private location. Pt boyfriend stated that he had been in contact with an individual who has a spare set of keys to their apartment, and should be here shortly to gain access. Pt assessed and vital signs obtained. Pt found -sob, -cp, -jvd, -n/v/d, -dizzy. Pt reports headache 8/10 pain noted in forehead and temples. Eyes PEARRL, ears nose and throat normal, neck/back/chest normal with equal and bilateral chest rise and fall noted. Extremities normal. Vitals found pt blood pressure lower than previous record at hospital, per pt. [facility] contacted and discussed treatment. Provider unable to provide pt with any appropriate dose or strength pain management for a headache, C suggesting establishing IV access and hanging 1 L normalsaline, and pt managing headache with OTC medication in pt apartment. Pt agreeable to treatment. Provider established IV access, 18g in right AC, good flow and blood draw noted. IV secured and 1 Lnormal saline hung and administered wide open. Upon completion of bag, pt states that she feels "more alive than previously and believes that she will feel better once in her apartment andresting comfortably. Provider addressed red flags and answered any further questions from pt. Provider then left the residence. All times approximate. IV_(FLUIDS_AND/OR_MEDICATION), MEDICATION_IM, EKG, POC_FLU_STREP, COVID_TEST Written by Albin Serna on 2025-01-24
--- OUTSIDE RECORDS SUMMARY | 2025-04-02 16:13 | XMS_ITS | Encounter Summary ---
Author Organization [facility] Address [address] [place] [address] Encounters * CPT with Medical instED at [facility] on 2025-04-01 { reasonForRequest : Pt's mother reporting sharp pain on her hand, radiating all theway up her arm, suspected nerve pain>mother states the pain is \ bad\ , patientReports : , denies :[ Falls with head strike and LOC , Falls from a standing position, no LOC, patient is amnestic to the event , Falls with isolated injury and deformity noted to limb", Falls with inability to move post fall , Cool extremities after fall or injury", Weakness with fall, able to move all extremities ], chiefComplaints :"Extremity Pain , pmh : Anxiety Disorder, Hypothyroidism, Migraine , allergies : Compazine, Reglan, Toradol, Bactrim , otherAllergies :null,"painAssessment : Level 10 out of 10 , visitOutcome : , additionalComments : 34 y.o female complains of Extremity Pain\n\nPatient self-reporting symptoms:\nRecently diagnosed with carpal tunnel \nPain from hand not radiating up arm \nReports she has had the pain for a couple days, getting progressively \nUsed lotion and ibuprofen with no relief\nDifficult to open and close hand due to pain, tender to touch \nRates pain 05/02 now \nNo recent falls/injury\nNot on anticoagulation, no previous kidney issues. \n\nI provided information on the mobile health provider response time and advised the patient and/or caregiver to monitor reported signsand symptoms. I discussed the warning signs of when to seek emergency care. } Dispatched to the call address for the female with wrist pain. Pt states she has knee and other joint issues but also carpal tunnel in her left wrist, she also endorses suffering from fibromyalgia. She states a couple of days ago she started having a stabbing/throbbing type pain in her left hand/wrist and it has gotten increasingly worse of the last couple of days and now the pain radiates all the way up to her shoulder. She states it gets worse at night and sometimes the pain wakes her from her sleep. She has tried Motrin, Tylenol, ice and heat without effect. She has limited mobility of thehand/wrist due to the pain. She denies any trauma to the area. Pt was found opening door, CAOx4, airway open and patent, breathing non labored, able to speak in full sentences, lungs CTA, skin PWD with good turgor, mucous membranes pink and moist, pupils PERRL, -edema/swelling, afebrile, +CMSx4, - erythema/bruising/crepitus/swelling of the effected area. Wrist/hand pain Pt was assessed. C consulted. Script called into preferred pharmacy, Pt advised that a brace may reduce the pain as well. Red flags discussed. ALL times are approx. IV_(FLUIDS_AND/OR_MEDICATION), MEDICATION_IM, ORAL_MEDICATION, WOUND_CARE, ORTHOSTATIC_VITAL_SIGNS Written by Medical instED on 2025-04-01
== END 2025-04-02 13:13 | disposition home or self-care (01) ==
LOC: HO.MAMMO 13:12
DX: N64.89 Other specified disorders of breast (principal)
CPT/HCPCS: 76642; 77061; 77065

== ENCOUNTER → 2025-04-02 13:30 | Outpatient (BNV) | payer OTHER, SELFPAY | PROVIDERS: Visit Provider Internal Medicine | DX: R92.8 Other abnormal and inconclusive findings on diagnostic imaging of breast (principal) | CPT/HCPCS: 76642; 77065; G0279 ==

== ENCOUNTER 2025-05-01 15:07 | Outpatient (AMB) | payer OTHER, SELFPAY ==
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
[2025-05-01 15:16] VITALS: BP 110/72; PULSE 83; O2SAT 99; BMI 26.8
== END 2025-05-01 16:08 | disposition home or self-care (01) ==
LOC: HO.HSMS 15:08
PROVIDERS: Visit Provider Psychiatry & Neurology Neurology
DX: G43.E09 Chronic migraine with aura, not intractable, without status migrainosus (principal); D32.9 Benign neoplasm of meninges, unspecified; G47.00 Insomnia, unspecified; R06.89 Other abnormalities of breathing; R06.81 Apnea, not elsewhere classified; R41.89 Other symptoms and signs involving cognitive functions and awareness
CPT/HCPCS: 99204; G2211

== ENCOUNTER → 2025-05-01 15:07 | Outpatient (BNVA) | payer OTHER, SELFPAY | PROVIDERS: Visit Provider Psychiatry & Neurology Neurology | DX: G43.E09 Chronic migraine with aura, not intractable, without status migrainosus (principal); D32.9 Benign neoplasm of meninges, unspecified; G47.00 Insomnia, unspecified; R06.89 Other abnormalities of breathing; R06.81 Apnea, not elsewhere classified; R41.89 Other symptoms and signs involving cognitive functions and awareness | CPT/HCPCS: 99202 ==

== ENCOUNTER 2025-05-21 15:17 | Outpatient (AMB) | payer OTHER, SELFPAY ==
--- OUTSIDE RECORDS SUMMARY | 2024-01-30 07:00 | XMS_ITS ---
[facility] Address [address] [place] [address] Care Team Providers Care Asphalt Machine Operator Name Role Phone VANESADaniel JOSIANE Unavailable [phone] Medications Medication SIG (Take, Route, Fr equency, Duration) Notes Start Date End Date Status Pregabalin 25 MG 1 capsule Orally twi ce a day; Duration: 30 days Active Mounjaro 2.5 MG/0.5ML 2.5mg Subcutaneous weekly; Duration: 30 days Active Encounters Encounter Location Date Provider Diagnosis [facility] [address] [address] 01/30/2024 JOSIANE VARGAS BMI 25.0-25.9,adult Z68.25 ; Overweight (BMI 25.0-29.9) E66.3 ; Dietary counseling and surveillance Z71.3 ; Bipolar 1 disorder F31.9 and Hypothyroidism, unspecified type E03.9 Assessments Encounter Date Diagnosis (ICD Code) Assessment Notes Treatment Notes Treatment Clinical Notes Section Notes 01/30/2024 BMI 25.0-25.9,adult (ICD-10 - Z68.25) #Weight Management 01/31/2024 Updated labs reviewed Discussed protein consumption and vitamins The conditions are mostly stable including bipolar disorder cont mounjaro 5mg Restart Lyrica We discussed maintenance dosing moving forward, about every 3-4 weeks is acceptable. Lyrica prescrbed for fibromyalgia pain. 6-week follow-up Total time spent today was 30 minutes of which greater than 50% was spent on coordinating and counseling Patient has been found to be overweight with a BMI of (25). We are a board certified obesity and weight management practice Patient has trialed behavioral modification, dietary restrictions and exercise for a minimum of 6 months The most recent [place] [employer] clinical endocrinologists and [place] [employer] guidelines recommend patients who have overweight BMI or obesity BMI, who also have metabolic syndrome, prediabetes, HLD, and other comorbidities or at risk of developing type 2 diabetes should aim for a weight loss goal of at least 10% of the baseline body weight Patient counseled regarding effects of GLP/GIP-1 agonists, and other FDA approved wgt loss meds with regards to a multifactorial approach of weight loss as mentioned above and not solely appetite suppression. We have discussed the mechanism of GLP-1's/GIP, dual incretins, appetitite suppressants I think this would be fantastic option for her given her metabolic workup and body composition We have discussed the risks and benefits and side effects including/and not limited to Sarcopenia, intestinal obstruction, constipation, nausea, lethargy, headache Discussed importance of protein consumption for muscle maintenance as well as strength and resistance training ,probiotics, B12 complex biotin , iron and other nutrients, To help avoid telogen effluvium We have discussed the lifelong requirement of nutritional supplementation And adherence to an exercise regimen as well as importance of follow-up The patient understands and agrees There is no history of medullary thyroid cancer or multiple endocrine neoplasia There is also no history of cardiovascular disease, hypertension, palpitations, or arrhythmias In the setting of potential stimulant/amphetami ne use such as phentermine We have also discussed risks and benefits, and the use of compounded medications to help offset the national shortages as well as financial implications vs trade name drugs Patient was reassured and welcomed to the practice. We discussed that we stress a hollistic medical approach with emphasis on lifestyle modification. Patient was informed that a healthy lifestyle with exercise and good eating habits can help reduce his risk of medical complications. He is explained that obesity increases his risk of diabetes, cardiovascular disease, or organ damage. We spent a lot of time discussing the relationship between food, exercise, sleep, mental health and obesity. Patient was counseled on the importance EATING local, organic food when possible. Patient was educated on clean 15 and dirty dozen. I provided information about reading books called The Food Rules by Jose Lomax and Eat Fat Get Lean by Dr Denver Andersen. Self education is important in the journey for weight management. Patient was offered diagnostic testing. We want to measure visceral adiposity, advanced body composition, adverse lipids, fatty acid balance, risk for heart disease and atherosclerosis, markers of inflammation and genetic susceptibility. Patient was counseled on weight management and was advised to lose weight using A. Meal Replacement Products We discussed the lifelong requirement of nutritional supplementation and adherence to an exercise regimen as well as importance of dietary follow-up Patient was educated on the replacement products called optifast. This is a good way of taking fixed amount of calories. It has been shown in studies to be ineffective weight management tool. We also recommend maintaining adequate protein intake and muscle composition, 1.5mg/kg This however has to be coupled with lifestyle intervention as well as laboratory data and EKG monitoring. It is impossible to know how a person will tolerate complete meal replacement. The side effects of meal replacement and weight loss could include syncopal attacks, dizziness, gallstones, potential cholecystectomy, possible heart attack and even . The benefits of meal replacement would be potential weight loss but no guarantees can be made. Meal replacement products are not covered by insurance. Once the patient has bought these products we cannot return them B. Lifestyle management which includes several strategies as below 1. Eat a low carbohydrate good fat good protein diet. Eliminate refined carbohydrates from the diet. Continue blood sugar and sugared beverages. Eat local organic when possible. Cook your own meals. Read food labels. None about healthy snacks. Portion control and food with low glycemic index 2. Exercise regularly. Try to get at least 6000 steps a day. Use a predominant to track activity level. Consider using apps like UMicIt, Side.Crpal, lose it, stick as needed for self-monitoring and weight management. Consider group exercises. Consider hiring a personal lines account executive. Regular exercise is berrios to sustainable health and prevents as a buffer against weight regain 3. Sleep is most important for healing. Tried to sleep at least 8 hours a night. A good quality sleep needs a sleep ritual with ideal room temperature of around 68. It might help to take a shower and have no electronics in the room and sleep in a very dark room without artificial light. Start her sleep routine and get up early in the morning and go to bed on time 4. Make a social connection. Surround yourself with positive people with positive energy. Connect with friends and family. 5. Get into the habit of meditating and mindfulness while doing everything. 6. Go outside and connect with nature. C. Prescription medications Patient was educated on the use of prescription medications for medical weight loss. This is a growing list and includes phentermine, Topamax,Qsymia, contrave, belviq and saxenda. All prescription medications could have side effects including but not limited to kidney stones, seizure disorder cardiac arrhythmias heart attack pancreatitis etc. etc.. Patient was encouraged to read the prescription insert and have coaching with their pharmacist and make an informed decision about taking medication and know that these medications are being prescribed with good intentions and we do not know how a patient would react to her medication. Sudden medications are FDA approved for weight loss and there is also off label use depending on patient's inability to afford medications in an attempt to lose weight D. Behavioral counseling was done to establish a relationship between food and an mood. Patient was provided information about local counseling and psychiatry and Dr Jarrell at [facility]. We would like to cover regular topics and build on low glycemic eating exercise mindful eating, using yoga and meditation along with deep breathing and connecting with friends and family. E. MASS PAT reviewed, Patient's current medications were reviewed and opinion was given on medication that can cause weight gain and can be substituted F. Patient was assessed for risk with obesity including and not limiting to atherosclerosis heart disease stroke kidney disease, restrictive lung disease, irritable bowel syndrome and overall mortality. Risk of developing prediabetes diabetes and metabolic syndrome was discussed G. Therapeutic plan: We have decided to make therapeutic plan which would include choosing wisely on calories restricting portion getting active, tracking weight, getting good quality sleep and working on time management H. Patient will follow up in (4) weeks for weight management Of note, some information is being carried forward from prior records for informational purposes only and is being cited so that efficiency, safety and quality of the patient's care is not compromised This note was prepared using voice recognition software and direct typing Please excuse inadvertent auto body repair estimator or typing errors, or uncorrected word substitutions Although every attempt has been made by the provider to proofread this document, occasional misspellings and typographical errors may still be present Due to the previous pandemic, and the use of personal protective equipment (PPE) This may decrease voice recognition accuracy Inadvertent auto body repair estimator errors may occur 01/30/2024 Overweight (BMI 25.0-29.9) (ICD-10 - E66.3) #Weight Management 01/31/2024 Updated labs reviewed Discussed protein consumption and vitamins The conditions are mostly stable including bipolar disorder cont mounjaro 5mg Restart Lyrica We discussed maintenance dosing moving forward, about every 3-4 weeks is acceptable. Lyrica prescrbed for fibromyalgia pain. 6-week follow-up Total time spent today was 30 minutes of which greater than 50% was spent on coordinating and counseling Patient has been found to be overweight with a BMI of (25). We are a board certified obesity and weight management practice Patient has trialed behavioral modification, dietary restrictions and exercise for a minimum of 6 months The most recent [place] [employer] endocrinologists and [place] [employer] guidelines recommend patients who have overweight BMI or obesity BMI, who also have metabolic syndrome, prediabetes, HLD, and other comorbidities or at risk of developing type 2 diabetes should aim for a weight loss goal of at least 10% of the baseline body weight Patient counseled regarding effects of GLP/GIP-1 agonists, and other FDA approved wgt loss meds with regards to a multifactorial approach of weight loss as mentioned above and not solely appetite suppression. We have discussed the mechanism of GLP-1's/GIP, dual incretins, appetitite suppressants I think this would be fantastic option for her given her metabolic workup and body composition We have discussed the risks and benefits and side effects including/and not limited to Sarcopenia, intestinal obstruction, constipation, nausea, lethargy, headache Discussed importance of protein consumption for muscle maintenance as well as strength and resistance training ,probiotics, B12 complex biotin , iron and other nutrients, To help avoid telogen effluvium We have discussed the lifelong requirement of nutritional supplementation And adherence to an exercise regimen as well as importance of follow-up The patient understands and agrees There is no history of medullary thyroid cancer or multiple endocrine neoplasia There is also no history of cardiovascular disease, hypertension, palpitations, or arrhythmias In the setting of potential stimulant/amphetami ne use such as phentermine We have also discussed risks and benefits, and the use of compounded medications to help offset the national shortages as well as financial implications vs trade name drugs Patient was reassured and welcomed to the practice. We discussed that we stress a hollistic medical approach with emphasis on lifestyle modification. Patient was informed that a healthy lifestyle with exercise and good eating habits can help reduce his risk of medical complications. He is explained that obesity increases his risk of diabetes, cardiovascular disease, or organ damage. We spent a lot of time discussing the relationship between food, exercise, sleep, mental health and obesity. Patient was counseled on the importance EATING local, organic food when possible. Patient was educated on clean 15 and dirty dozen. I provided information about reading books called The Food Rules by Jose Lomax and Eat Fat Get Lean by Dr Denver Andersen. Self education is important in the journey for weight management. Patient was offered diagnostic testing. We want to measure visceral adiposity, advanced body composition, adverse lipids, fatty acid balance, risk for heart disease and atherosclerosis, markers of inflammation and genetic susceptibility. Patient was counseled on weight management and was advised to lose weight using A. Meal Replacement Products We discussed the lifelong requirement of nutritional supplementation and adherence to an exercise regimen as well as importance of dietary follow-up Patient was educated on the replacement products called optifast. This is a good way of taking fixed amount of calories. It has been shown in studies to be ineffective weight management tool. We also recommend maintaining adequate protein intake and muscle composition, 1.5mg/kg This however has to be coupled with lifestyle intervention as well as laboratory data and EKG monitoring. It is impossible to know how a person will tolerate complete meal replacement. The side effects of meal replacement and weight loss could include syncopal attacks, dizziness, gallstones, potential cholecystectomy, possible heart attack and even . The benefits of meal replacement would be potential weight loss but no guarantees can be made. Meal replacement products are not covered by insurance. Once the patient has bought these products we cannot return them B. Lifestyle management which includes several strategies as below 1. Eat a low carbohydrate good fat good protein diet. Eliminate refined carbohydrates from the diet. Continue blood sugar and sugared beverages. Eat local organic when possible. Cook your own meals. Read food labels. None about healthy snacks. Portion control and food with low glycemic index 2. Exercise regularly. Try to get at least 6000 steps a day. Use a predominant to track activity level. Consider using apps like UMicIt, myfitTheWrappal, lose it, stick as needed for self-monitoring and weight management. Consider group exercises. Consider hiring a personal lines account executive. Regular exercise is berrios to sustainable health and prevents as a buffer against weight regain 3. Sleep is most important for healing. Tried to sleep at least 8 hours a night. A good quality sleep needs a sleep ritual with ideal room temperature of around 68. It might help to take a shower and have no electronics in the room and sleep in a very dark room without artificial light. Start her sleep routine and get up early in the morning and go to bed on time 4. Make a social connection. Surround yourself with positive people with positive energy. Connect with friends and family. 5. Get into the habit of meditating and mindfulness while doing everything. 6. Go outside and connect with nature. C. Prescription medications Patient was educated on the use of prescription medications for medical weight loss. This is a growing list and includes phentermine, Topamax,Qsymia, contrave, belviq and saxenda. All prescription medications could have side effects including but not limited to kidney stones, seizure disorder cardiac arrhythmias heart attack pancreatitis etc. etc.. Patient was encouraged to read the prescription insert and have coaching with their pharmacist and make an informed decision about taking medication and know that these medications are being prescribed with good intentions and we do not know how a patient would react to her medication. Sudden medications are FDA approved for weight loss and there is also off label use depending on patient's inability to afford medications in an attempt to lose weight D. Behavioral counseling was done to establish a relationship between food and an mood. Patient was provided information about local counseling and psychiatry and Dr Jarrell at [facility]. We would like to cover regular topics and build on low glycemic eating exercise mindful eating, using yoga and meditation along with deep breathing and connecting with friends and family. E. MASS PAT reviewed, Patient's current medications were reviewed and opinion was given on medication that can cause weight gain and can be substituted F. Patient was assessed for risk with obesity including and not limiting to atherosclerosis heart disease stroke kidney disease, restrictive lung disease, irritable bowel syndrome and overall mortality. Risk of developing prediabetes diabetes and metabolic syndrome was discussed G. Therapeutic plan: We have decided to make therapeutic plan which would include choosing wisely on calories restricting portion getting active, tracking weight, getting good quality sleep and working on time management H. Patient will follow up in (4) weeks for weight management Of note, some information is being carried forward from prior records for informational purposes only and is being cited so that efficiency, safety and quality of the patient's care is not compromised This note was prepared using voice recognition software and direct typing Please excuse inadvertent auto body repair estimator or typing errors, or uncorrected word substitutions Although every attempt has been made by the provider to proofread this document, occasional misspellings and typographical errors may still be present Due to the previous pandemic, and the use of personal protective equipment (PPE) This may decrease voice recognition accuracy Inadvertent auto body repair estimator errors may occur 01/30/2024 Dietary counseling and surveillance (ICD-10 - Z71.3) #Weight Management 01/31/2024 Updated labs reviewed Discussed protein consumption and vitamins The conditions are mostly stable including bipolar disorder cont mounjaro 5mg Restart Lyrica We discussed maintenance dosing moving forward, about every 3-4 weeks is acceptable. Lyrica prescrbed for fibromyalgia pain. 6-week follow-up Total time spent today was 30 minutes of which greater than 50% was spent on coordinating and counseling Patient has been found to be overweight with a BMI of (25). We are a board certified obesity and weight management practice Patient has trialed behavioral modification, dietary restrictions and exercise for a minimum of 6 months The most recent [place] [employer] clinical endocrinologists and [place] [employer] guidelines recommend patients who have overweight BMI or obesity BMI, who also have metabolic syndrome, prediabetes, HLD, and other comorbidities or at risk of developing type 2 diabetes should aim for a weight loss goal of at least 10% of the baseline body weight Patient counseled regarding effects of GLP/GIP-1 agonists, and other FDA approved wgt loss meds with regards to a multifactorial approach of weight loss as mentioned above and not solely appetite suppression. We have discussed the mechanism of GLP-1's/GIP, dual incretins, appetitite suppressants I think this would be fantastic option for her given her metabolic workup and body composition We have discussed the risks and benefits and side effects including/and not limited to Sarcopenia, intestinal obstruction, constipation, nausea, lethargy, headache Discussed importance of protein consumption for muscle maintenance as well as strength and resistance training ,probiotics, B12 complex biotin , iron and other nutrients, To help avoid telogen effluvium We have discussed the lifelong requirement of nutritional supplementation And adherence to an exercise regimen as well as importance of follow-up The patient understands and agrees There is no history of medullary thyroid cancer or multiple endocrine neoplasia There is also no history of cardiovascular disease, hypertension, palpitations, or arrhythmias In the setting of potential stimulant/amphetami ne use such as phentermine We have also discussed risks and benefits, and the use of compounded medications to help offset the national shortages as well as financial implications vs trade name drugs Patient was reassured and welcomed to the practice. We discussed that we stress a hollistic medical approach with emphasis on lifestyle modification. Patient was informed that a healthy lifestyle with exercise and good eating habits can help reduce his risk of medical complications. He is explained that obesity increases his risk of diabetes, cardiovascular disease, or organ damage. We spent a lot of time discussing the relationship between food, exercise, sleep, mental health and obesity. Patient was counseled on the importance EATING local, organic food when possible. Patient was educated on clean 15 and dirty dozen. I provided information about reading books called The Food Rules by Jose Lomax and Eat Fat Get Lean by Dr Denver Andersen. Self education is important in the journey for weight management. Patient was offered diagnostic testing. We want to measure visceral adiposity, advanced body composition, adverse lipids, fatty acid balance, risk for heart disease and atherosclerosis, markers of inflammation and genetic susceptibility. Patient was counseled on weight management and was advised to lose weight using A. Meal Replacement Products We discussed the lifelong requirement of nutritional supplementation and adherence to an exercise regimen as well as importance of dietary follow-up Patient was educated on the replacement products called optifast. This is a good way of taking fixed amount of calories. It has been shown in studies to be ineffective weight management tool. We also recommend maintaining adequate protein intake and muscle composition, 1.5mg/kg This however has to be coupled with lifestyle intervention as well as laboratory data and EKG monitoring. It is impossible to know how a person will tolerate complete meal replacement. The side effects of meal replacement and weight loss could include syncopal attacks, dizziness, gallstones, potential cholecystectomy, possible heart attack and even . The benefits of meal replacement would be potential weight loss but no guarantees can be made. Meal replacement products are not covered by insurance. Once the patient has bought these products we cannot return them B. Lifestyle management which includes several strategies as below 1. Eat a low carbohydrate good fat good protein diet. Eliminate refined carbohydrates from the diet. Continue blood sugar and sugared beverages. Eat local organic when possible. Cook your own meals. Read food labels. None about healthy snacks. Portion control and food with low glycemic index 2. Exercise regularly. Try to get at least 6000 steps a day. Use a predominant to track activity level. Consider using apps like UMicIt, myfitnesspal, lose it, stick as needed for self-monitoring and weight management. Consider group exercises. Consider hiring a personal lines account executive. Regular exercise is berrios to sustainable health and prevents as a buffer against weight regain 3. Sleep is most important for healing. Tried to sleep at least 8 hours a night. A good quality sleep needs a sleep ritual with ideal room temperature of around 68. It might help to take a shower and have no electronics in the room and sleep in a very dark room without artificial light. Start her sleep routine and get up early in the morning and go to bed on time 4. Make a social connection. Surround yourself with positive people with positive energy. Connect with friends and family. 5. Get into the habit of meditating and mindfulness while doing everything. 6. Go outside and connect with nature. C. Prescription medications Patient was educated on the use of prescription medications for medical weight loss. This is a growing list and includes phentermine, Topamax,Qsymia, contrave, belviq and saxenda. All prescription medications could have side effects including but not limited to kidney stones, seizure disorder cardiac arrhythmias heart attack pancreatitis etc. etc.. Patient was encouraged to read the prescription insert and have coaching with their pharmacist and make an informed decision about taking medication and know that these medications are being prescribed with good intentions and we do not know how a patient would react to her medication. Sudden medications are FDA approved for weight loss and there is also off label use depending on patient's inability to afford medications in an attempt to lose weight D. Behavioral counseling was done to establish a relationship between food and an mood. Patient was provided information about local counseling and psychiatry and Dr Jarrell at [facility]. We would like to cover regular topics and build on low glycemic eating exercise mindful eating, using yoga and meditation along with deep breathing and connecting with friends and family. E. MASS PAT reviewed, Patient's current medications were reviewed and opinion was given on medication that can cause weight gain and can be substituted F. Patient was assessed for risk with obesity including and not limiting to atherosclerosis heart disease stroke kidney disease, restrictive lung disease, irritable bowel syndrome and overall mortality. Risk of developing prediabetes diabetes and metabolic syndrome was discussed G. Therapeutic plan: We have decided to make therapeutic plan which would include choosing wisely on calories restricting portion getting active, tracking weight, getting good quality sleep and working on time management H. Patient will follow up in (4) weeks for weight management Of note, some information is being carried forward from prior records for informational purposes only and is being cited so that efficiency, safety and quality of the patient's care is not compromised This note was prepared using voice recognition software and direct typing Please excuse inadvertent auto body repair estimator or typing errors, or uncorrected word substitutions Although every attempt has been made by the provider to proofread this document, occasional misspellings and typographical errors may still be present Due to the previous pandemic, and the use of personal protective equipment (PPE) This may decrease voice recognition accuracy Inadvertent auto body repair estimator errors may occur 01/30/2024 Bipolar 1 disorder (ICD-10 - F31.9) #Weight Management 01/31/2024 Updated labs reviewed Discussed protein consumption and vitamins The conditions are mostly stable including bipolar disorder cont mounjaro 5mg Restart Lyrica We discussed maintenance dosing moving forward, about every 3-4 weeks is acceptable. Lyrica prescrbed for fibromyalgia pain. 6-week follow-up Total time spent today was 30 minutes of which greater than 50% was spent on coordinating and counseling Patient has been found to be overweight with a BMI of (25). We are a board certified obesity and weight management practice Patient has trialed behavioral modification, dietary restrictions and exercise for a minimum of 6 months The most recent [place] [employer] endocrinologists and [place] [employer] guidelines recommend patients who have overweight BMI or obesity BMI, who also have metabolic syndrome, prediabetes, HLD, and other comorbidities or at risk of developing type 2 diabetes should aim for a weight loss goal of at least 10% of the baseline body weight Patient counseled regarding effects of GLP/GIP-1 agonists, and other FDA approved wgt loss meds with regards to a multifactorial approach of weight loss as mentioned above and not solely appetite suppression. We have discussed the mechanism of GLP-1's/GIP, dual incretins, appetitite suppressants I think this would be fantastic option for her given her metabolic workup and body composition We have discussed the risks and benefits and side effects including/and not limited to Sarcopenia, intestinal obstruction, constipation, nausea, lethargy, headache Discussed importance of protein consumption for muscle maintenance as well as strength and resistance training ,probiotics, B12 complex biotin , iron and other nutrients, To help avoid telogen effluvium We have discussed the lifelong requirement of nutritional supplementation And adherence to an exercise regimen as well as importance of follow-up The patient understands and agrees There is no history of medullary thyroid cancer or multiple endocrine neoplasia There is also no history of cardiovascular disease, hypertension, palpitations, or arrhythmias In the setting of potential stimulant/amphetami ne use such as phentermine We have also discussed risks and benefits, and the use of compounded medications to help offset the national shortages as well as financial implications vs trade name drugs Patient was reassured and welcomed to the practice. We discussed that we stress a hollistic medical approach with emphasis on lifestyle modification. Patient was informed that a healthy lifestyle with exercise and good eating habits can help reduce his risk of medical complications. He is explained that obesity increases his risk of diabetes, cardiovascular disease, or organ damage. We spent a lot of time discussing the relationship between food, exercise, sleep, mental health and obesity. Patient was counseled on the importance EATING local, organic food when possible. Patient was educated on clean 15 and dirty dozen. I provided information about reading books called The Food Rules by Jose Lomax and Eat Fat Get Lean by Dr Denver Andersen. Self education is important in the journey for weight management. Patient was offered diagnostic testing. We want to measure visceral adiposity, advanced body composition, adverse lipids, fatty acid balance, risk for heart disease and atherosclerosis, markers of inflammation and genetic susceptibility. Patient was counseled on weight management and was advised to lose weight using A. Meal Replacement Products We discussed the lifelong requirement of nutritional supplementation and adherence to an exercise regimen as well as importance of dietary follow-up Patient was educated on the replacement products called optifast. This is a good way of taking fixed amount of calories. It has been shown in studies to be ineffective weight management tool. We also recommend maintaining adequate protein intake and muscle composition, 1.5mg/kg This however has to be coupled with lifestyle intervention as well as laboratory data and EKG monitoring. It is impossible to know how a person will tolerate complete meal replacement. The side effects of meal replacement and weight loss could include syncopal attacks, dizziness, gallstones, potential cholecystectomy, possible heart attack and even . The benefits of meal replacement would be potential weight loss but no guarantees can be made. Meal replacement products are not covered by insurance. Once the patient has bought these products we cannot return them B. Lifestyle management which includes several strategies as below 1. Eat a low carbohydrate good fat good protein diet. Eliminate refined carbohydrates from the diet. Continue blood sugar and sugared beverages. Eat local organic when possible. Cook your own meals. Read food labels. None about healthy snacks. Portion control and food with low glycemic index 2. Exercise regularly. Try to get at least 6000 steps a day. Use a predominant to track activity level. Consider using apps like UMicIt, Side.Crpal, lose it, stick as needed for self-monitoring and weight management. Consider group exercises. Consider hiring a personal lines account executive. Regular exercise is berrios to sustainable health and prevents as a buffer against weight regain 3. Sleep is most important for healing. Tried to sleep at least 8 hours a night. A good quality sleep needs a sleep ritual with ideal room temperature of around 68. It might help to take a shower and have no electronics in the room and sleep in a very dark room without artificial light. Start her sleep routine and get up early in the morning and go to bed on time 4. Make a social connection. Surround yourself with positive people with positive energy. Connect with friends and family. 5. Get into the habit of meditating and mindfulness while doing everything. 6. Go outside and connect with nature. C. Prescription medications Patient was educated on the use of prescription medications for medical weight loss. This is a growing list and includes phentermine, Topamax,Qsymia, contrave, belviq and saxenda. All prescription medications could have side effects including but not limited to kidney stones, seizure disorder cardiac arrhythmias heart attack pancreatitis etc. etc.. Patient was encouraged to read the prescription insert and have coaching with their pharmacist and make an informed decision about taking medication and know that these medications are being prescribed with good intentions and we do not know how a patient would react to her medication. Sudden medications are FDA approved for weight loss and there is also off label use depending on patient's inability to afford medications in an attempt to lose weight D. Behavioral counseling was done to establish a relationship between food and an mood. Patient was provided information about local counseling and psychiatry and Dr Jarrell at [facility]. We would like to cover regular topics and build on low glycemic eating exercise mindful eating, using yoga and meditation along with deep breathing and connecting with friends and family. E. MASS PAT reviewed, Patient's current medications were reviewed and opinion was given on medication that can cause weight gain and can be substituted F. Patient was assessed for risk with obesity including and not limiting to atherosclerosis heart disease stroke kidney disease, restrictive lung disease, irritable bowel syndrome and overall mortality. Risk of developing prediabetes diabetes and metabolic syndrome was discussed G. Therapeutic plan: We have decided to make therapeutic plan which would include choosing wisely on calories restricting portion getting active, tracking weight, getting good quality sleep and working on time management H. Patient will follow up in (4) weeks for weight management Of note, some information is being carried forward from prior records for informational purposes only and is being cited so that efficiency, safety and quality of the patient's care is not compromised This note was prepared using voice recognition software and direct typing Please excuse inadvertent auto body repair estimator or typing errors, or uncorrected word substitutions Although every attempt has been made by the provider to proofread this document, occasional misspellings and typographical errors may still be present Due to the previous pandemic, and the use of personal protective equipment (PPE) This may decrease voice recognition accuracy Inadvertent auto body repair estimator errors may occur 01/30/2024 Hypothyroidism, unspecified type (ICD-10 - E03.9) #Weight Management 01/31/2024 Updated labs reviewed Discussed protein consumption and vitamins The conditions are mostly stable including bipolar disorder cont mounjaro 5mg Restart Lyrica We discussed maintenance dosing moving forward, about every 3-4 weeks is acceptable. Lyrica prescrbed for fibromyalgia pain. 6-week follow-up Total time spent today was 30 minutes of which greater than 50% was spent on coordinating and counseling Patient has been found to be overweight with a BMI of (25). We are a board certified obesity and weight management practice Patient has trialed behavioral modification, dietary restrictions and exercise for a minimum of 6 months The most recent [place] [employer] endocrinologists and [place] [employer] guidelines recommend patients who have overweight BMI or obesity BMI, who also have metabolic syndrome, prediabetes, HLD, and other comorbidities or at risk of developing type 2 diabetes should aim for a weight loss goal of at least 10% of the baseline body weight Patient counseled regarding effects of GLP/GIP-1 agonists, and other FDA approved wgt loss meds with regards to a multifactorial approach of weight loss as mentioned above and not solely appetite suppression. We have discussed the mechanism of GLP-1's/GIP, dual incretins, appetitite suppressants I think this would be fantastic option for her given her metabolic workup and body composition We have discussed the risks and benefits and side effects including/and not limited to Sarcopenia, intestinal obstruction, constipation, nausea, lethargy, headache Discussed importance of protein consumption for muscle maintenance as well as strength and resistance training ,probiotics, B12 complex biotin , iron and other nutrients, To help avoid telogen effluvium We have discussed the lifelong requirement of nutritional supplementation And adherence to an exercise regimen as well as importance of follow-up The patient understands and agrees There is no history of medullary thyroid cancer or multiple endocrine neoplasia There is also no history of cardiovascular disease, hypertension, palpitations, or arrhythmias In the setting of potential stimulant/amphetami ne use such as phentermine We have also discussed risks and benefits, and the use of compounded medications to help offset the national shortages as well as financial implications vs trade name drugs Patient was reassured and welcomed to the practice. We discussed that we stress a hollistic medical approach with emphasis on lifestyle modification. Patient was informed that a healthy lifestyle with exercise and good eating habits can help reduce his risk of medical complications. He is explained that obesity increases his risk of diabetes, cardiovascular disease, or organ damage. We spent a lot of time discussing the relationship between food, exercise, sleep, mental health and obesity. Patient was counseled on the importance EATING local, organic food when possible. Patient was educated on clean 15 and dirty dozen. I provided information about reading books called The Food Rules by Jose Lomax and Eat Fat Get Lean by Dr Denver Andersen. Self education is important in the journey for weight management. Patient was offered diagnostic testing. We want to measure visceral adiposity, advanced body composition, adverse lipids, fatty acid balance, risk for heart disease and atherosclerosis, markers of inflammation and genetic susceptibility. Patient was counseled on weight management and was advised to lose weight using A. Meal Replacement Products We discussed the lifelong requirement of nutritional supplementation and adherence to an exercise regimen as well as importance of dietary follow-up Patient was educated on the replacement products called optifast. This is a good way of taking fixed amount of calories. It has been shown in studies to be ineffective weight management tool. We also recommend maintaining adequate protein intake and muscle composition, 1.5mg/kg This however has to be coupled with lifestyle intervention as well as laboratory data and EKG monitoring. It is impossible to know how a person will tolerate complete meal replacement. The side effects of meal replacement and weight loss could include syncopal attacks, dizziness, gallstones, potential cholecystectomy, possible heart attack and even . The benefits of meal replacement would be potential weight loss but no guarantees can be made. Meal replacement products are not covered by insurance. Once the patient has bought these products we cannot return them B. Lifestyle management which includes several strategies as below 1. Eat a low carbohydrate good fat good protein diet. Eliminate refined carbohydrates from the diet. Continue blood sugar and sugared beverages. Eat local organic when possible. Cook your own meals. Read food labels. None about healthy snacks. Portion control and food with low glycemic index 2. Exercise regularly. Try to get at least 6000 steps a day. Use a predominant to track activity level. Consider using apps like UMicIt, Side.Crpal, lose it, stick as needed for self-monitoring and weight management. Consider group exercises. Consider hiring a personal lines account executive. Regular exercise is berrios to sustainable health and prevents as a buffer against weight regain 3. Sleep is most important for healing. Tried to sleep at least 8 hours a night. A good quality sleep needs a sleep ritual with ideal room temperature of around 68. It might help to take a shower and have no electronics in the room and sleep in a very dark room without artificial light. Start her sleep routine and get up early in the morning and go to bed on time 4. Make a social connection. Surround yourself with positive people with positive energy. Connect with friends and family. 5. Get into the habit of meditating and mindfulness while doing everything. 6. Go outside and connect with nature. C. Prescription medications Patient was educated on the use of prescription medications for medical weight loss. This is a growing list and includes phentermine, Topamax,Qsymia, contrave, belviq and saxenda. All prescription medications could have side effects including but not limited to kidney stones, seizure disorder cardiac arrhythmias heart attack pancreatitis etc. etc.. Patient was encouraged to read the prescription insert and have coaching with their pharmacist and make an informed decision about taking medication and know that these medications are being prescribed with good intentions and we do not know how a patient would react to her medication. Sudden medications are FDA approved for weight loss and there is also off label use depending on patient's inability to afford medications in an attempt to lose weight D. Behavioral counseling was done to establish a relationship between food and an mood. Patient was provided information about local counseling and psychiatry and Dr Jarrell at [facility]. We would like to cover regular topics and build on low glycemic eating exercise mindful eating, using yoga and meditation along with deep breathing and connecting with friends and family. E. MASS PAT reviewed, Patient's current medications were reviewed and opinion was given on medication that can cause weight gain and can be substituted F. Patient was assessed for risk with obesity including and not limiting to atherosclerosis heart disease stroke kidney disease, restrictive lung disease, irritable bowel syndrome and overall mortality. Risk of developing prediabetes diabetes and metabolic syndrome was discussed G. Therapeutic plan: We have decided to make therapeutic plan which would include choosing wisely on calories restricting portion getting active, tracking weight, getting good quality sleep and working on time management H. Patient will follow up in (4) weeks for weight management Of note, some information is being carried forward from prior records for informational purposes only and is being cited so that efficiency, safety and quality of the patient's care is not compromised This note was prepared using voice recognition software and direct typing Please excuse inadvertent auto body repair estimator or typing errors, or uncorrected word substitutions Although every attempt has been made by the provider to proofread this document, occasional misspellings and typographical errors may still be present Due to the previous pandemic, and the use of personal protective equipment (PPE) This may decrease voice recognition accuracy Inadvertent auto body repair estimator errors may occur Plan Of Treatment Medication Medication Name Sig Start Date Stop Date Notes Pregabalin 25 MG 1 capsule Orally twi ce a day; Duration: 30 days Mounjaro 2.5 MG/0.5ML 2.5mg Subcutaneous weekly; Duration: 30 days Progress Notes * Tika MENEZESDOB:1990 (34 yo F)Acc No.[id number]:01/30/2024 Patient: Tika ANTONIO Provider: Francisco VARGAS NP :1990 A ge:33 Y S ex:Female Date:01/30/2024 Address:[address] [place], [place] [id number] Subjective: * Chief Complaints: * * HPI: C onstitutional: Patient is here today for Weight management follow-up visit Patient seen and examined. Full past medical history, social history, family history, allergies and current medications were reviewed and updated. #Weight Management 01/31/2024 PMH of vitamin D deficiency, asthma, bipolar 1 disorder, anxiety, GERD,and hypothyroidism follow up was on phentermine previously, but caused palpitations/incr BP *now on mounjaro 5mg has done fairly well, also some telogen effluvium Is doing injections every 2 weeks Has not done injection in 2-3 weeks due to personal life stressors, has not been eating and her weight dropped to 115lbs. Recent divorce Was wondering if she could do injections every 3 weeks or so as maintenance. also doing MICC injections no history of medullary thyroid cancer Goal weight: would like to get to 135lb We discussed maintenance dosing moving forward Typical daily diet: reports snacking less, drinking 2 protein shakes (60g) and smaller portions ham for breakfast, then tuna for lunch, and boiled veggies and chicken. Water intake about about 50oz per day discussed increasing to 64oz per day Typical exercise: 6-7,000 per day working to increase steps. Lifting weights three times per week. Patient does reports with weight loss she is developing lower abdominal rash in skin folds Discussed importance of protein consumption for muscle maintenance, strength and resistance training as well as probiotics, B12 complex biotin , iron and other nutrients, To also help avoid telogen effluvium while on weight loss medications such as GLP-1 maternal hx, grandmother, breast CA, requesting early mammography chemically euthyroid, levothyroxine sees psychiatry for bipolar 1 disorder, managing meds, stable, also psychotherapy Discussed Fibromyalgia diagnoses and is having severe point muscle pain that is limiting her range of motion in her lower back. Was on Lyrica in the past and would like to be presribed it again to help with pain and motility. 01/31/2024, Weight , BMI 12/05/2023, Weight 124lbs , BMI 24.3 (-9lbs) 09/01/2023, Weight 133 , BMI (-5lbs) 07/27/2023, Weight 138 , BMI 26 Comprehensive labs, 07/2023 Hemoglobin A1c 5.0 Electrolytes renal function LFTs are stable CBC stable Total cholesterol 218, LDL 152, HDL 54, triglycerides 61 Vitamin D 18* TSH 0.61 T4, 9.8 Normal LH FSH and estradiol Health maintenance WINDOWS SOFTWARE ENGINEER Pap: Ever Mirza, UTD Mammography: requesting given maternal hx of breast CA* Flu 2022 defers Tdap utd COVID Mrna x 4. * ROS: A ll Other Systems: Review of Systems (ROS) A ll others negative except those mentioned in HPI. * Medical History: * Medications: T aking Mounjaro 2.5 MG/0.5ML Solution Pen-injector 2.5mg Subcutaneous weekly , Taking Pregabalin 25 MG Capsule 1 capsule Orally twice a day Objective: * Vitals: * Examination: G eneral Examination: GENERAL APPEARANCE: i n no acute distress, well developed, well nourished, visibly upset and sad. H EAD: n ormocephalic, atraumatic. E YES: p upils equal, round, reactive to light and accommodation. E ARS: n ormal. O RAL CAVITY: mucosa moist. T HROAT: c lear. N DAVID/THYROID: n david supple, full range of motion, no cervical lymphadenopathy. S KIN: n o suspicious lesions, warm and dry. H EART: n o murmurs, regular rate and rhythm, S1, S2 normal. L UNGS: c lear to auscultation bilaterally. A BDOMEN: n ormal, bowel sounds present, soft, nontender, nondistended. M USCULOSKELETAL: R educed range of motion in upper extremities due to pain, pain with movement with arm. Pain in lower back.. E XTREMITIES: n o clubbing, cyanosis, or edema. N EUROLOGIC: n onfocal, motor strength normal upper and lower extremities, sensory exam intact. ? Assessment: * Assessment: 1. O verweight (BMI 25.0-29.9) - E66.3 (Primary) 2 . B IA 25.0-25.9,adult - Z68.25 3 . D ietary counseling and surveillance - Z71.3 4 .?Bipolar 1 disorder - F31.9 5 . H ypothyroidism, unspecified type - E03.9 ? #Weight Management 01/31/2024 Updated labs reviewed Discussed protein consumption and vitamins The conditions are mostly stable including bipolar disorder cont mounjaro 5mg Restart Lyrica We discussed maintenance dosing moving forward, about every 3-4 weeks is acceptable. Lyrica prescrbed for fibromyalgia pain. 6-week follow-up Total time spent today was 30 minutes of which greater than 50% was spent on coordinating and counseling Patient has been found to be overweight with a BMI of (25). We are a board certified obesity and weight management practice Patient has trialed behavioral modification, dietary restrictions and exercise for a minimum of 6 months The most recent [place] [employer] of clinical endocrinologists and [place] [employer] endocrin[employer] guidelines recommend patients who have overweight BMI or obesity BMI, who also have metabolic syndrome, prediabetes, HLD, and other comorbidities or at risk of developing type 2 diabetes should aim for a weight loss goal of at least 10% of the baseline body weight Patient counseled regarding effects of GLP/GIP-1 agonists, and other FDA approved wgt loss meds with regards to a multifactorial approach of weight loss as mentioned above and not solely appetite suppression. We have discussed the mechanism of GLP-1's/GIP, dual incretins, appetitite suppressants I think this would be fantastic option for her given her metabolic workup and body composition We have discussed the risks and benefits and side effects including/and not limited to Sarcopenia, intestinal obstruction, constipation, nausea, lethargy, headache Discussed importance of protein consumption for muscle maintenance as well as strength and resistance training ,probiotics, B12 complex biotin , iron and other nutrients, To help avoid telogen effluvium We have discussed the lifelong requirement of nutritional supplementation And adherence to an exercise regimen as well as importance of follow-up The patient understands and agrees There is no history of medullary thyroid cancer or multiple endocrine neoplasia There is also no history of cardiovascular disease, hypertension, palpitations, or arrhythmias In the setting of potential stimulant/amphetamine use such as phentermine We have also discussed risks and benefits, and the use of compounded medications to help offset the national shortages as well as financial implications vs trade name drugs Patient was reassured and welcomed to the practice. We discussed that we stress a hollistic medical approach with emphasis on lifestyle modification. Patient was informed that a healthy lifestyle with exercise and good eating habits can help reduce his risk of medical complications. He is explained that obesity increases his risk of diabetes, cardiovascular disease, or organ damage. We spent a lot of time discussing the relationship between food, exercise, sleep, mental health and obesity. Patient was counseled on the importance EATING local, organic food when possible. Patient was educated on clean 15 and dirty dozen. I provided information about reading books called The Food Rules by Jose Lomax and Eat Fat Get Lean by Dr Denver Andersen. Self education is important in the journey for weight management. Patient was offered diagnostic testing. We want to measure visceral adiposity, advanced body composition, adverse lipids, fatty acid balance, risk for heart disease and atherosclerosis, markers of inflammation and genetic susceptibility. Patient was counseled on weight management and was advised to lose weight using A. Meal Replacement Products We discussed the lifelong requirement of nutritional supplementation and adherence to an exercise regimen as well as importance of dietary follow-up Patient was educated on the replacement products called optifast. This is a good way of taking fixed amount of calories. It has been shown in studies to be ineffective weight management tool. We also recommend maintaining adequate protein intake and muscle composition, 1.5mg/kg This however has to be coupled with lifestyle intervention as well as laboratory data and EKG monitoring. It is impossible to know how a person will tolerate complete meal replacement. The side effects of meal replacement and weight loss could include syncopal attacks, dizziness, gallstones, potential cholecystectomy, possible heart attack and even . The benefits of meal replacement would be potential weight loss but no guarantees can be made. Meal replacement products are not covered by insurance. Once the patient has bought these products we cannot return them B. Lifestyle management which includes several strategies as below 1. Eat a low carbohydrate good fat good protein diet. Eliminate refined carbohydrates from the diet. Continue blood sugar and sugared beverages. Eat local organic when possible. Cook your own meals. Read food labels. None about healthy snacks. Portion control and food with low glycemic index 2. Exercise regularly. Try to get at least 6000 steps a day. Use a predominant to track activity level. Consider using apps like UMicIt, myfitnesspal, lose it, stick as needed for self-monitoring and weight management. Consider group exercises. Consider hiring a personal lines account executive. Regular exercise is berrios to sustainable health and prevents as a buffer against weight regain 3. Sleep is most important for healing. Tried to sleep at least 8 hours a night. A good quality sleep needs a sleep ritual with ideal room temperature of around 68. It might help to take a shower and have no electronics in the room and sleep in a very dark room without artificial light. Start her sleep routine and get up early in the morning and go to bed on time 4. Make a social connection. Surround yourself with positive people with positive energy. Connect with friends and family. 5. Get into the habit of meditating and mindfulness while doing everything. 6. Go outside and connect with nature. C. Prescription medications Patient was educated on the use of prescription medications for medical weight loss. This is a growing list and includes phentermine, Topamax,Qsymia, contrave, belviq and saxenda. All prescription medications could have side effects including but not limited to kidney stones, seizure disorder cardiac arrhythmias heart attack pancreatitis etc. etc.. Patient was encouraged to read the prescription insert and have coaching with their pharmacist and make an informed decision about taking medication and know that these medications are being prescribed with good intentions and we do not know how a patient would react to her medication. Sudden medications are FDA approved for weight loss and there is also off label use depending on patient's inability to afford medications in an attempt to lose weight D. Behavioral counseling was done to establish a relationship between food and an mood. Patient was provided information about local counseling and psychiatry and Dr Jarrell at [facility]. We would like to cover regular topics and build on low glycemic eating exercise mindful eating, using yoga and meditation along with deep breathing and connecting with friends and family. E. MASS PAT reviewed, Patient's current medications were reviewed and opinion was given on medication that can cause weight gain and can be substituted F. Patient was assessed for risk with obesity including and not limiting to atherosclerosis heart disease stroke kidney disease, restrictive lung disease, irritable bowel syndrome and overall mortality. Risk of developing prediabetes diabetes and metabolic syndrome was discussed G. Therapeutic plan: We have decided to make therapeutic plan which would include choosing wisely on calories restricting portion getting active, tracking weight, getting good quality sleep and working on time management H. Patient will follow up in (4) weeks for weight management Of note, some information is being carried forward from prior records for informational purposes only and is being cited so that efficiency, safety and quality of the patient's care is not compromised This note was prepared using voice recognition software and direct typing Please excuse inadvertent auto body repair estimator or typing errors, or uncorrected word substitutions Although every attempt has been made by the provider to proofread this document, occasional misspellings and typographical errors may still be present Due to the previous pandemic, and the use of personal protective equipment (PPE) This may decrease voice recognition accuracy Inadvertent auto body repair estimator errors may occur. Plan: * Treatment: 2. B ipolar 1 disorder Start Mounjaro Solution Pen-injector, 2.5 MG/0.5ML, 2.5mg, Subcutaneous, weekly, 30 days, 4 Pen Needle, Refills 3. * Images: Billing Information: * Visit Code: * Procedure Codes: * Electronic signature of MAN VARGAS on 05/21/2025 at 07:40 PM EDT Sign off status: Pending * Provider: Francisco VARGAS NP Date: 0 01/30/2024 Generated for Ayan cohen/Rylee/Mat on: 1 07:40 PM EDT History and Physical Notes * HPI (History of Present Illness) Category Sub-Category Detail Notes Category Not es Constitutional Patient is here today for Weight management follow-up visit Patient seen and examined. Full past medical history, social history, family history, allergies and current medications were reviewed and updated. #Weight Management 01/31/2024 PMH of vitamin D deficiency, asthma, bipolar 1 disorder, anxiety, GERD,and hypothyroidism follow up was on phentermine previously, but caused palpitations/incr BP *now on mounjaro 5mg has done fairly well, also some telogen effluvium Is doing injections every 2 weeks Has not done injection in 2-3 weeks due to personal life stressors, has not been eating and her weight dropped to 115lbs. Recent divorce Was wondering if she could do injections every 3 weeks or so as maintenance. also doing MICC injections no history of medullary thyroid cancer Goal weight: would like to get to 135lb We discussed maintenance dosing moving forward Typical daily diet: reports snacking less, drinking 2 protein shakes (60g) and smaller portions ham for breakfast, then tuna for lunch, and boiled veggies and chicken. Water intake about about 50oz per day discussed increasing to 64oz per day Typical exercise: 6-7,000 per day working to increase steps. Lifting weights three times per week. Patient does reports with weight loss she is developing lower abdominal rash in skin folds Discussed importance of protein consumption for muscle maintenance, strength and resistance training as well as probiotics, B12 complex biotin , iron and other nutrients, To also help avoid telogen effluvium while on weight loss medications such as GLP-1 maternal hx, grandmother, breast CA, requesting early mammography chemically euthyroid, levothyroxine sees psychiatry for bipolar 1 disorder, managing meds, stable, also psychotherapy Discussed Fibromyalgia diagnoses and is having severe point muscle pain that is limiting her range of motion in her lower back. Was on Lyrica in the past and would like to be presribed it again to help with pain and motility. 01/31/2024, Weight , BMI 12/05/2023, Weight 124lbs , BMI 24.3 (-9lbs) 09/01/2023, Weight 133 , BMI (-5lbs) 07/27/2023, Weight 138 , BMI 26 Comprehensive labs, 07/2023 Hemoglobin A1c 5.0 Electrolytes renal function LFTs are stable CBC stable Total cholesterol 218, LDL 152, HDL 54, triglycerides 61 Vitamin D 18* TSH 0.61 T4, 9.8 Normal LH FSH and estradiol Health maintenance WINDOWS SOFTWARE ENGINEER Pap: Ever Mirza, UTD Mammography: requesting given maternal hx of breast CA* Flu 2022 defers Tdap utd COVID Mrna x 4 Examination Category Sub-Category Detail Notes Category Not es General Examination GENERAL APPEARANCE: in no ac [place] distress, well developed, well nourished, visibly upset and sad HEAD: normocephalic, atrau matic EYES: pupils equal, round, reactive to light and accommodation EARS: normal THROAT: clear NECK/THYROID: neck supple, full ra nge of motion, no cervical lymphadenopathy HEART: no murmurs, regular rate and rhythm, S1, S2 normal LUNGS: clear to auscultatio n bilaterally ABDOMEN: normal, bowel sounds present, soft, nontender, nondistended NEUROLOGIC: nonfocal, motor stre ngth normal upper and lower extremities, sensory exam intact SKIN: no suspicious lesion s, warm and dry EXTREMITIES: no clubbing, cyanosi s, or edema MUSCULOSKELETAL: Reduced range of mot ion in upper extremities due to pain, pain with movement with arm. Pain in lower back. ORAL CAVITY: mucosa moist
--- OUTSIDE RECORDS SUMMARY | 2024-04-25 07:00 | XMS_ITS ---
Author Organization [facility] [address] Address [address] [place] [address] Care Team Providers Care Quality Systems Specialist Name Role Phone JOSIANE VARGAS Unavailable [phone] REASON FOR VISIT see encounter Medications Medication SIG (Take, Route, Frequency, Duration) Notes Start Date End Date Status Mounjaro 2.5 MG/0.5ML 2.5mg Subcutaneous weekly; Duration: 30 days Active Pregabalin 25 MG 1 capsule Orally twi ce a day; Duration: 30 days Active Ferrous Sulfate 325 (65 Fe) MG 1 tablet Orally daily; Duration: 90 days 03/28/2024 Active Encounters Encounter Location Date Provider Diagnosis [facility] [address] [place] [phone] 04/25/2024 JOSIANE VARGAS Plan Of Treatment No Information Progress Notes * Tika MENEZESDOB:1990 (34 yo F)Acc No.[id number]:04/25/2024 Progress Notes Patient: Tika ANTONIO Provider: Francisco VARGAS NP :1990 A ge:33 Y S ex:Female Date:04/25/2024 Address:[address] [place] [phone] Subjective: * Chief Complaints: * 1 . See encounter. * HPI: C onstitutional: Patient is here today for sick visit evaluation Patient seen and examined. Full past medical history, social history, family history, allergies and current medications were reviewed and updated. Acute Concerns/Problem List: 04/25/2024. * ROS: A ll Other Systems: Review of Systems (ROS) A ll others negative except those mentioned in HPI. * Medical History: * Medications: T aking Mounjaro 2.5 MG/0.5ML Solution Pen-injector 2.5mg Subcutaneous weekly , Taking Ferrous Sulfate 325 (65 Fe) MG Tablet 1 tablet Orally daily , Taking Pregabalin 25 MG Capsule 1 capsule Orally twice a day Objective: * Vitals: * Examination: G eneral Examination: GENERAL APPEARANCE: i n no acute distress, well developed, well nourished. H EAD: n ormocephalic, atraumatic. E YES: p upils equal, round, reactive to light and accommodation. E ARS: n ormal. O RAL CAVITY: m ucosa moist. T HROAT: c lear. N DAVID/THYROID: n david supple, full range of motion, no cervical lymphadenopathy. S KIN: n o suspicious lesions, warm and dry. H EART: n o murmurs, regular rate and rhythm, S1, S2 normal. L UNGS: c lear to auscultation bilaterally. A BDOMEN: n ormal, bowel sounds present, soft, nontender, nondistended. E XTREMITIES: n o clubbing, cyanosis, or edema. N EUROLOGIC: n onfocal, motor strength normal upper and lower extremities, sensory exam intact. Assessment: Plan: * Treatment: * Procedure Codes: 9 9199 NO SHOW OFFICE VISIT Care Plan: * Problems: * Images: Billing Information: * Visit Code: * Procedure Codes: 53885 NO SHOW OFFICE VISIT. Care Plan Details* * Electronic signature of MAN VARGAS on 05/21/2025 at 07:41 PM EDT Sign off status: Pending * Provider: Francisco VARGAS NP Date: Generated for Ayan cohen/Rylee/Mat on: 07:41 PM EDT History and Physical Notes * HPI (History of Present Illness) Category Sub-Category Detail Notes Category Not es Constitutional Patient is here today for sick visit evaluation Patient seen and examined. Full past medical history, social history, family history, allergies and current medications were reviewed and updated. Acute Concerns/Problem List: 04/25/2024 Examination Category Sub-Category Detail Notes Category Not es General Examination GENERAL APPEARANCE: in no ac eklutna distress, well developed, well nourished HEAD: normocephalic, atrau matic EYES: pupils equal, [...] EXTREMITIES: no clubbing, cyanosi s, or edema ORAL CAVITY: mucosa moist
--- OUTSIDE RECORDS SUMMARY | 2024-08-01 06:00 | XMS_ITS ---
Author Organization [facility] [address] Address [address] [place] [address] Care Team Providers Care Feeder Worker Power Unit Operator Name Role Phone JOSIANE VARGAS Unavailable [phone] Encounters Encounter Location Date Provider Diagnosis [facility] [address] [address] 08/01/2024 JOSIANE VARGAS Plan Of Treatment No Information Progress Notes * Tika MENEZESDOB:1990 (34 yo F)Acc No.[id number]:08/01/2024 Progress Note Patient: Tika ANTONIO Provider: Francisco VARGAS NP :1990 A ge:33 Y S ex:Female Date:08/01/2024 Address:[address] [place], [place] [phone] Subjective: * Chief Complaints: * * Medical History: Objective: * Vitals: Assessment: Plan: * Treatment: * Images: Billing Information: * Visit Code: * Procedure Codes: Care Plan Details* * Electronic signature of MAN VARGAS on 05/21/2025 at 07:40 PM EDT Sign off status: Pending * Provider: Francisco VARGAS NP Date: 0 08/01/2024 Generated for Ayan cohen/Rylee/Reinaitting on: 07:40 PM EDT
[2025-05-21 15:23] VITALS: BP 118/74; PULSE 86; TEMP 36.3; O2SAT 99; BMI 26.9
--- NOTE | 2025-05-21 15:23 | MHC.PC.OV ---
Vital Signs 05/21/25 15:23 Height 4 ft 11 in Weight 133 lb 2 oz BMI 26.9 BP 118/74 Blood Pressure Location Lt brachial Position Sitting Pulse 86 Pulse Source Pulse Oximeter Temp 97.3 F Temp Source Temporal Artery Scan Pulse Oximetry (%) 99 Oxygen Delivery Method Room Air Intake Visit Reasons: back pain Allergies ketorolac (From TORADOL) Allergy (Severe, Verified 05/21/25 15:28) ANAPHYLAXIS metoclopramide (From REGLAN) Allergy (Severe, Verified 05/21/25 15:28) ANAPHYLAXIS prochlorperazine (From COMPAZINE) Allergy (Severe, Verified 05/21/25 15:28) ANAPHYLAXIS Tobacco use date assessed: 05/21/25 Dental Screening Dental Screen Date: 05/21/25 Did you have a dental visit in the last 12 months?: Yes Did you have a dental problem in the last 6 months where you did not have access to dental care?: No Was dental information given to patient?: Patient has dentist HPI HPI Comments History of Present Illness Details Patient is a 34-year-old female with medical history of fibromyalgia, headaches, hypothyroidism, hypertension, hyperlipidemia, asthma, anxiety, ADHD, bipolar 2 disorder who presents today for low back pain. The pain started the night before the visit and is described as stabbing and piercing without specific precipitating events. Pain is non-radiating. No specific aggravating or alleviating factors. Denies trauma, numbness, tingling or weakness. The patient reports ongoing issues with fibromyalgia but has not had access to Lyrica for little less than a month due to insurance issues. She denies taking any NSAIDs at this time due to previous inefficacy with medications like ibuprofen and meloxicam. Previous rheumatological care has lapsed due to logistical challenges after relocation. Regarding her allergies listed here, patient states that during she was given all 3 medication at once (Toradol, Reglan and Compazine) which made her extremely sick, for which she states that she has allergy to all of them. However, patient states that she was given Toradol at a later event with no issues. She also states that she used to take meloxicam at home without any issues or allergy reactions. [facility] Medical History Cognitive change Witnessed apneic spells Gasping for breath Chronic migraine with aura Meningioma Asthma Hypothyroidism Bipolar 2 disorder Fibromyalgia Surgical History History of hernia surgery Family History Other Mental health disorder Social History Household Members: None Housing: Apartment Alcohol intake: current Alcohol intake frequency: holidays/special occasions only Patient Tobacco Use Status: Former Tobacco user e-Cigarette/Vaping Use: Currently Using Second Hand Smoke Exposure: Yes Substance Use Type: Marijuana service: No Current occupational status: disabled Cognitive needs: No Hearing needs: No Vision needs: No Questionnaire PHQ-9 Over the last 2 weeks, how often have you been bothered by any of the following problems? 1. Little interest or pleasure in doing things: several days 2. Feeling down, depressed, or hopeless: several days 3. Trouble falling or staying asleep, or sleeping too much: more than half the days 4. Feeling tired or having little energy: several days 5. Poor appetite or overeating: several days 6. Feeling bad about yourself - or that you are a failure or have let yourself or your family down: not at all 7. Trouble concentrating on things, such as reading the newspaper or watching television: more than half the days 8. Moving or speaking so slowly that other people could have noticed. Or the opposite - being so fidgety or restless that you have been moving around a lot more than usual: not at all 9. Thoughts that you would be better off or of hurting yourself in some way: not at all Total score: 8 Source: Developed by Drs. German Malone, Cande Marcelo, Mark Cooney and colleagues, with an educational tasha from [employer]. Thrive Questionnaire Date Thrive assessed: 12/19/24 I am a: Patient What is your living situation today?: I have a steady place to live Within the past 12 months, did the food you bought not last and you didn't have the money to get more?: Never true Within the past 12 months, did you worry whether your food would run out before you got money to buy more?: Never true Do you have trouble paying for medicines?: No Do you have trouble getting transportation to medical appointments?: No Do you have trouble paying your heating and electricity bill?: No Do you have trouble taking care of your child, family member or friend?: No Do you have trouble with day-to-day activities such as bathing, preparing meals, shopping, managing finances, etc.?: Yes Are you currently unemployed and looking for a job?: I choose not to answer this question Are you interested in more education?: I choose not to answer this question Please select the resources that you would like help with: None THRIVE Score: 0 AUDIT C Alcohol Use Questionnaire (AUDIT-C) 1. How often do you have a drink containing alcohol?: Never 3. How often do you have six or more drinks on one occasion?: Never Total Score: 0 LAMONT-7 AMB Questionnaire LAMONT-7 Date LAMONT - 7 assessed: 03/07/25 Feeling nervous, anxious, or on edge: 1 = Several days Not being able to stop or control worryin = Not at all Worrying too much about different things: 1 = Several days Trouble relaxin = Several days Being so restless that it is hard to sit still: 1 = Several days Becoming easily annoyed or irritable: 1 = Several days Feeling afraid as if something awful might happen: 0 = Not at all Total LAMONT-7 score (0-4 normal; 5-9 mild; 10-14 moderate; 15-21 severe): 5 Source: Developed by Drs. German Malone, Cande Marcelo, Mark Cooney and colleagues, with an educational tasha from [employer]. Review of Systems Narrative As per HPI Physical exam (Primary Care) Vital Signs: Last Vital Signs Temp 97.3 F 05/21/25 15:23 Pulse 86 05/21/25 15:23 BP 118/74 05/21/25 15:23 Pulse Ox 99 05/21/25 15:23 Oxygen Delivery Method Room Air 05/21/25 15:23 General: Well-appearing, alert, oriented ?3, in no acute distress. Cardiovascular: RRR, S1-S2 appreciated, no murmurs, rubs or gallops. Respiratory: Lungs clear to auscultation bilaterally, no wheezes, rales or rhonchi. Abdomen: Soft, nontender, nondistended. Normoactive bowel sounds. Back: Limited range of motion in the lumbar spine due to pain. Tenderness upon palpation of paraspinal muscles in bilateral lumbar regions and sacroiliac joints, with right greater than left. Neurologic: sensation and strength intact in bilateral lower extremities. BMI result Body Mass Index 26.9 Tobacco/Smoking Status: Tobacco use Status Tobacco use date assessed 05/21/25 05/21/25 15:29 Patient Tobacco Use Status Former Tobacco user 05/21/25 15:29 e-Cigarette/Vaping Use Currently Using 05/21/25 15:29 PHQ-9: PHQ-9 Score PHQ-9: Total score 8 05/21/25 15:29 Thrive Assessment: Date of Thrive Assessment Date Thrive assessed 12/19/24 05/21/25 15:29 Coding Level of Care Code Est Pt Level 4 (42709) Diagnoses Left-sided low back pain without sciatica, unspecified chronicity M54.50 Chronicity: unspecified Back pain laterality: left Sciatica presence: without sciatica Fibromyalgia M79.7 Assessment & Plan Assessment & Plan (1) Low back pain: Code(s): M54.50 - Low back pain, unspecified Category: Medical Qualifiers: Chronicity: unspecified Back pain laterality: left Sciatica presence: without sciatica Qualified Code(s): M54.50 - Low back pain, unspecified Plan: Patient presenting with bilateral low back pain without sciatica, with limited range of motion due to pain and palpation to tenderness or paraspinal muscles as well as the sacral iliac joints area. Differential including musculoskeletal pain, sacroiliitis in the setting of history of fibromyalgia. -we will give naproxen 500 mg twice a day for 7 days -lidocaine patches p.r.n. -physical therapy referral provided (2) Fibromyalgia: Code(s): M79.7 - Fibromyalgia Category: Medical Plan: Patient with a known history of fibromyalgia, on Lyrica. However, she has not been able to get the medication for a little less than a month now due to insurance issues. Patient also lost follow-up with her previous equal opportunity officer due to relocation. She would like to get set up with Rheumatology again. -rheumatology referral sent. Orders: Orders PT Evaluation and Treatment Today M54.9 - Dorsalgia, unspecified Referrals Rheumatology Referral M79.7 - Fibromyalgia Medications: New lidocaine 4% (Aspercreme (lidocaine)) 1 patch topical DAILY PRN 30 ea 0RF pain naproxen 500 mg PO BID 14 tabs 0RF back pain 7 days
--- OUTSIDE RECORDS SUMMARY | 2025-05-21 19:41 | XMS_ITS | Data Portability ---
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 10 Comments: 34 y.o female complains of Extremity Pain Patient self-reporting symptoms: Recently diagnosed with carpal tunnel Pain from hand not radiating up arm Reports she has had the pain for a couple days, getting progressively Used lotion and ibuprofen with no relief Difficult to open and close hand due to pain, tender to touch Rates pain 10/10 now No recent falls/injury Not on anticoagulation, no previous kidney issues. I provided information on the mobile health provider response time and advised the patient and/or caregiver to monitor reported signs and symptoms. I discussed the warning signs of when to seek emergency care. ..................... ..................... ..................... ..................... ..................... ..................... ............... Bullet Charging Machine Operator Note From Ken Seth: Dispatched to the call address for the [...] without effect. She has limited mobility of the hand/wrist due to the pain. She denies any trauma to the area. Pt was found opening door, CAOx4, airway open and patent, breathing non labored, able to speak in full sentences, lungs CTA, skin PWD with good turgor, mucous membranes pink and moist, pupils PERRL, -edema/swelling, afebrile, +CMSx4, -erythema/bruising/cr epitus/swelling of the effected area. Wrist/hand pain Pt was assessed. C consulted. Script called into preferred pharmacy, Pt advised that a brace may reduce the pain as well. Red flags discussed. ALL times are approx. ..................... ..................... ..................... ..................... ..................... ..................... ............... [facility] Consulted: Yves Snow ..................... ..................... ..................... ..................... ..................... ..................... ............... Disposition: Fulfilled Yves Snow MD [address] [facility],[address], [place], [address], [employer]FEyeD - [employer] 03/31/2025 22:32:38 04/24/2025 text/html ROS as noted in the HPI CRC Nurse Triage Notes (Olga Smith): Reason For Request: diarrhea/vomiting Patient Reports: Diarrhea no blood in stool; Nausea with or without vomiting; Inability to tolerate foods, fluids or daily medications Denies: Sharp focal or diffuse abdominal pain Vomiting blood/coffee ground material Bloating, jaundice new onset with pain Nausea and vomiting greater than 2 hours with abdominal pain Tearing pain that radiates to back Food Impaction Chief Complaints: Abdominal Pain, Diarrhea, Headache PMH: Anxiety Disorder, Hypothyroidism, Migraine, Hypertension PMH Reviewed at 04/24/2025 Allergies Reviewed at 04/24/2025:55 Comments: Member calling in feeling really weak and not able to eat due to nausea and vomiting. Also has diarrhea. Feels she is dehydrated. Symptoms started earlier in the day today. Denies blood in vomit and diarrhea. Denies fever and chills- just a headache. Denies dizziness. 34 y.o female complains of Abdominal Pain, Diarrhea, Headache I provided information on the mobile health provider response time and advised the patient and/or caregiver to monitor reported signs and symptoms. I discussed the warning signs of when to seek emergency care. Yael Smith RN Bullet Charging Machine Operator Organization Information for [employer] Legal Name: [employer] Address: [address] [place] [address], Collection Administrator: Kristian Knox MD CLIA No.: [id number] Bullet Charging Machine Operator POC Test Results from [email or web address] Rapid COVID antigen (20:30:18) COVID: neg Attachments uploaded as part of this test result can be found under Documents section. Rapid influenza antigen (20:30:18) Flu: neg Attachments uploaded as part of this test result can be found under Documents section. iSTAT Chem8+ (20:54:06) Na: 140mEq/L K: 3.6mEq/L Cl: 102mEq/L iCa: 1.23mmol/L TCO2: 28mmol/L Glu: 100mg/dL BUN: 9mg/dL Crea: 0.8mg/dL Hct: 42% Hb: 14.3g/dL Ammol/L Cartridge Number: [id number] Attachments uploaded as part of this test result can be found under Documents section. ..................... ..................... ..................... ..................... ..................... ..................... ............... Bullet Charging Machine Operator Note From [employer]key: Dispatched to above address for nausea vomiting. On arrival patient 34 y/o F, met SC8 at the door, walking unassisted with normal gait, AOX4, airway patent, speaking in full sentences, good color, very upset. Patient reports she began feeling unwell this morning, nausea vomiting and 1 episode of diarrhea, has been around family sick with the same symptoms recently, recently traveled to [place], further reports a headache that feels like her normal headaches. Patients vital signs checked. Secondary assessment, pupils PERRL, airway patent, no JVD, trachea midline, equal chest rise and fall, lungs clear all guerrero, abdomen soft non tender, no signs of trauma, good radial pulse, skin pink warm and dry. Covid-19 and Flu test preformed, both negative results uploaded. [facility] contacted, spoke with Dr. Silver, ordered chem8, LR 1000ml and 4mg Zofran IV. Patient agrees with this plan. IV access established, 18g R AC. Blood draw preformed, Chem8 checked, results uploaded. Patient started on LR infusion. 5 rights verified. Patient administered 4mg Zofran IV. Patient offered Tylenol for headache but refused as she has some of her own. Infusions complete, IV removed. Patient advised of home care, red flags and need for transport. Patient has no additional questions or concerns at this time. SC8 clear. EOR. [facility] Lab Orders: BMP, serum or plasma: Performed [facility] Medication Orders: ondansetron HCl (PF) 4 mg/2 mL injection solution: Performed lactated Ringers intravenous solution: Performed Tylenol Extra Strength 500 mg tablet: Performed ..................... ..................... ..................... ..................... ..................... ..................... ............... [facility] Consulted: Cynthia Silver ..................... ..................... ..................... ..................... ..................... ..................... ............... Disposition: Fulfilled CYNTHIA SILVER MD [address] [place] [address],[address], [place], [address], [employer] 04/25/2025 15:36:08 05/04/2025 text/html CRC Nurse Triage Notes (Joseline Bowling): Reason For Request: Patient has something swollen and Warm between her chest. Patient Reports: History of cellulitis, isolated redness noted Denies: Mclain Flash, circumferential mclain Mclain reported with black tissue to the area Open skin area after a fall with uncontrolled bleeding Abscess/infection with streaking noted, presence of fever or without Fever and chills noted in setting of wound Rash Bites -bugs, spider Abscess Chief Complaints: Chest Pain PMH: Anxiety Disorder, Hypothyroidism, Migraine, Hypertension PMH Reviewed at 05/04/2025 - 18:20 Allergies Reviewed at 05/04/2025 - 18:20 Pain Assessment: Level 7 out of 10 Comments: 34 y.o female complains of Chest Pain Self-referring. Reporting that she noticed that her chest was a little painful and swollen a few days ago - now progressively worse. Dermal piercing in chest in that area - has had for 7 years. Has not changed the piercing recently. Reports it was draining a little yesterday - mostly clear with some blood. Outward swelling and warmth to area. Denies fever/chills. Not on anticoagulation. Rating pain 7/10 currently. Denies kidney issues. Requesting instED visit. I provided information on the mobile health provider response time and advised the patient and/or caregiver to monitor reported signs and symptoms. I discussed the warning signs of when to seek emergency care. ..................... ..................... ..................... ..................... ..................... ..................... ............... Bullet Charging Machine Operator Note From Angie Clark: SC6 responds to the listed address for a 34 yof w/ a c/c of . Upon arrival on scene, pt walks in to the living room of her small apartment after just getting out of the shower. She is conscious and alert and NAD. Her skin is w/p/d, no increased wob, no visible signs of stroke and no major bleeding are noted anywhere. She is wearing a tank top and has a visible piercing insertion at the top of her cleavage. The skin around the site appears to be clean w/ no bleeding or drainage noted at this time. Pt tells [facility] she started to have pain, redness, mild swelling, and some drainage from the site of the piercing about three days ago. It has progressively gotten more painful to touch and yesterday and today she was able to express some drainage and blood from the site. She is denying any trauma to the area. She has been using a bactine cleanser and pain reliever on the area and she says she isn't sure if it is helping or not. She did have a previous piercing in the same area before and had to have it removed when it was caught in a blanket and forcefully tugged on and it became infected. She has had this particular stud or seven years w/ no previous problems. She denies any cardiac cp/palpitations, no streaking, no sob, or fevers/chills. She ranks the pain at 7/10. [facility] visibly inspects the area around the stud. Some redness and mild swelling are beginning to show, but no visible signs of infection are noted at this time. Area around the stud (approx 1 -1.5 circumference) is tender to touch and any shear force applied to the skin. It is normothermic at this time. [facility] takes a photo of the area for [facility] inspection. Vital signs are gathered and pt is normotensive, afebrile, and not hypoxic. [facility] contacts [facility] and discusses the above. [facility] recommends pt be seen to have the stud removed at least within the next 48 hours. [facility] places pt on cephalexin and orders 500mg x1 tablet PO now and calls in prescription to pts pharmacy. [facility] administers 500mg cephalexin x1 tab PO to pt and instructs her to take it w/ food. [facility] informs pt to seek emergency care immediately if she gets a high fever, worsening cp, sob, n/v/d, high fever, or she notices increased bleeding, drainage or streaking in the area around the stud. Pt is amendable and says she is having breast augmentation surgery soon, so she is okay having it removed at this time. She thanks [facility] for coming. [facility] is clear. Report completed by GOOD Clark [id number]. [facility] Medication Orders: cephalexin 500 mg capsule: Administered ..................... ..................... ..................... ..................... ..................... ..................... ............... [facility] Consulted: Natasha Martinez ..................... ..................... ..................... ..................... ..................... ..................... ............... Disposition: Fulfilled Natasha Martinez MD [address] [facility],[address] [facility], [place], [address], [employer] - [employer] 05/04/2025 21:23:04 OBGyn Episode No OBEpisode recorded.
--- OUTSIDE RECORDS SUMMARY | 2025-05-21 19:41 | XMS_ITS | Continuity of Care Document ---
Author Name instED, Medical Address [address] [place] [id number] Organization Unknown Address [address] [place] [address] Medications No known medications Problems No known problems
--- OUTSIDE RECORDS SUMMARY | 2025-05-21 19:41 | XMS_ITS | Clinical Summary ---
Author Organization [facility] Address [address] [place] [address] Phone Care Team Providers Care Gas Engine Repairer Name Role Phone Physician, No Pcp Primary Care Provider Unavaila ble Allergies No known active allergies Social History Tobacco Use Types Packs/Day Years [...] 12/02/2015 12/01/2005, 11/19/1996, 04/20/1994, Additional history exists HPV Vaccines (1 - 3-dose SCDM series) 10/09/2018 Cervical Cancer Screening: Pap Smear 12/12/2020 12/12/2017 HIV Screening 08/22/2023 Hepatitis C Screening 08/22/2023 Medicare Annual Wellness Visit 08/22/2023 Social Influencers of Health Screening 08/22/2023 Depression Screening 07/24/2024 COVID-19 Vaccine ( season) 2025 09/29/2021, 07/02/2021, 12/25/2020, Additional history exists Influenza Vaccine (#1) 2025 RSV Immunization Adult Patients (1 - 1-dose 75+ series) 10/09/2066 HIB Vaccines Completed 04/20/1994, 07/24, 05/14/1992, Additional history exists IPV Vaccines Completed 11/19/1996, 07/24, 05/14/1992, Additional history exists MMR Vaccines Completed 11/19/1996, 04/20/1994 Hepatitis B Vaccines Completed 04/03/2006, 12/01/2005, 11/19/1996 Hepatitis A Vaccines Aged Out No long [...] RESULTING AGENCY - 12/22/2017 1:38 PM EDT [id number] THINPREP PAP, IMAGED: ATYPICAL SQUAMOUS CELLS OF [...] Most Recently Relevant to Health Maintenance Insurance [facility] MEDICARE Member Subscriber Plan / Payer (Ef fective 2023-Present) Name:DL MENEZESIANA Relation to Subscriber:Self Name:Tika Menezes Payer ID:[id number] Group ID:[id number] Type:Not on file Address: [address] [place] [address] [facility] MEDICARE Member Subscriber Plan / Payer (Ef fective 2023-Present) Name:RIRIDL ZHUIANA Relation to Subscriber:Self Name:RiriTika zhu Payer ID:[id number] Group ID:[id number] Type:Not on file Address: [address] [place] [address] Care Teams Gas Engine Repairer Relationship Specialty Start Date End Date Physician, No Pcp PCP - General 01/23/25
--- OUTSIDE RECORDS SUMMARY | 2025-05-21 19:41 | XMS_ITS | Encounter Summary ---
Author Organization [facility] Address [address] [place] [address] Encounters * CPT with Medical instED at [employer] on 2025-04-25 { reasonForRequest : diarrhea/vomiting , patientReports : Diarrhea ??? no blood in stool; Nausea with or without vomiting; Inability to tolerate foods, fluids or daily medications , denies :[ Sharp focal or diffuse abdominal pain , Vo miting blood/coffee ground material , Bloating, jaundice new onset with pain , N ausea and vomiting greater than 2 hours with abdominal pain , Tearing pain that radiates to back , Food Impaction ], chiefComplaints : Abdominal Pain, Diarrhea, Headache , pmh : Anxiety Disorder, Hypothyroidism, Migraine, Hypertension , allergies : Compazine, Reglan, Toradol, Bactrim , otherAllergies :nu ll, painAssessment : , visitOutcome : , additionalComments : Member calling in feeling really weak and not able to eat due to nausea and vomiting. Also has diarrhea. Feels she is dehydrated. Symptoms started earlier in the day today. Denies blood in vomit and diarrhea. Denies fever and chills- just a headache. Denies dizziness. \n\n34 y.o female complains of Abdominal Pain, Diarrhea, Headache\nI provided information on the mobile health provider response time and advised the patient and/or caregiver to monitor reported signs and symptoms. I discussed the warning signs of when to seek emergency care. Yael Smith RN } Dispatched to above address for nausea vomiting. On arrival patient 34 y/o F, met SC8 at the door, walking unassisted with normal gait, AOX4, airway patent, speaking in full sentences, good color, very upset. Patient reports she began feeling unwell this morning, nausea vomiting and 1 episode of diarrhea, has been around family sick with the same symptoms recently, recently traveled to [place], further reports a headache that feels like her normal headaches. Patients vital signs checked. Secondary assessment, pupils PERRL, airway patent, no JVD, trachea midline, equal chest rise and fall, lungs clear all guerrero, abdomen soft non tender, no signs of trauma, good radial pulse, skin pink warm a nd dry. Covid-19 and Flu test preformed, both negative results uploaded. [facility] contacted, spoke with Dr. Silver, ordered chem8, [...] concerns at this time. SC8 clear. EOR. IV_(FLUIDS_AND/OR_MEDICATION), MEDICATION_IM, EKG, POC_BLOODWORK, POC_FLU_STREP, COVID_TEST, ORTHOSTATIC_VITAL_SIGNS, PO_MEDICATION Written by Medical instED on 2025-04-25
--- OUTSIDE RECORDS SUMMARY | 2025-05-21 19:41 | XMS_ITS | Patient Health Record ---
Author Organization [facility] [address] Address [address] [place] [address] Care Team Providers Care Photographic Equipment Mechanic Name Role Phone JOSIANE VARGAS Unavailable [phone] Allergies Allergen (clinical drug ingredient) Drug/Non Drug [...] Marijuana license, vape pen- weed Originally from [place] Tob: Not currenty ETOH: None Medical Marijuana license Tob: Not currenty ETOH: None Medical Marijuana license Tob: Former tobacco abuse ETOH: None Medical Marijuana license, vape pen- weed Originally from [place] Tob: Former tobacco abuse ETOH: None Medical Marijuana license, vape pen- weed Originally from [place] Tob: Former tobacco abuse ETOH: None Medical Marijuana license, vape pen- weed Originally from [place] Tob: Not currenty ETOH: None Medical Marijuana license Tob: Not currenty ETOH: None Medical Marijuana license Tob: Not currenty ETOH: None Medical Marijuana license Tob: Not currenty ETOH: None Medical Marijuana license Tob: Former tobacco abuse ETOH: None Medical Marijuana license, vape pen- weed Originally from [place] Tob: Not currenty ETOH: None Medical Marijuana license Tob: Not currenty ETOH: None Medical Marijuana license Tob: Not currenty ETOH: None Medical Marijuana license Tob: Not currenty ETOH: None Medical Marijuana license Tob: Former tobacco abuse ETOH: None Medical Marijuana license, vape pen- weed Originally from [place] Tob: Not currenty ETOH: None Medical Marijuana license Problems Problem Type SNOMED Code ICD Code Onset Dates Problem Status W/U Status Risk Notes Problem Vitamin D deficiency (57709286) Vitamin D deficiency, unspecified (E55.9) Active confirmed Problem Obesity (000640086) Other obesity (E66.8) Active confirmed Problem Mixed hyperlipidemia (282096840) Mixed hyperlipidemia (E78.2) Active confirmed Problem Postmenopausal bleeding (72691608) Postmenopausal bleeding (N95.0) Active confirmed Problem Diabetes mellitus screening (054630546) Encounter for screening for diabetes mellitus (Z13.1) Active confirmed Problem Screening for cardiovascular system disease (874997453) Encounter for screening for cardiovascular disorders (Z13.6) Active confirmed Problem Hyperlipidaemia (71710544) Hyperlipidemia, unspecified hyperlipidemia type (E78.5) Active confirmed Problem Anxiety (53447415) Anxiety (F41.9) Active confi rmed Problem Hyperlipoproteinemia (1238492) 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) Active confirmed Problem Hypothyroidism (73801445) Hypothyroidism, unspecified type (E03.9) Active confirmed Problem Bipolar 1 disorder (990007243) Bipolar 1 disorder (F31.9) Active confirmed Problem Obese class I (finding) (773098617057438) Obesity (BMI 30.0-34.9) (E66.9) Active confirmed Problem Pain of knee region (finding) (5710677777) Knee pain, unspecified chronicity, unspecified laterality (M25.569) Active confirmed Problem Gastroesophageal reflux disease without esophagitis (189239506) Gastroesophageal reflux disease without esophagitis (K21.9) Active confirmed Problem Body mass index 30.0 0 to 34.99 (039970912907266) Body mass index [BMI] 32.0-32.9, adult (Z68.32) Active confirmed Problem Flushing (227441692) Hot flashes (R23.2) Active confirmed Problem Body mass index 30.0 0 to 34.99 (970569947091348) BMI 31.0-31.9,adult (Z68.31) Active confirmed Problem Body mass index 30+ - obesity (402352992) BMI 30.0-30.9,adult (Z68.30) Active confirmed Problem Stress (21872268) Stress (F43.9) Active confirm ed Problem Breast cancer screening (802403013) Encounter for screening mammogram for breast cancer (Z12.31) Active confirmed Problem Cough (08671446) Cough (R05.9) Active confirmed Problem Bipolar disorder (69643404) Bipolar 1 disorder, depressed (F31.9) Active confirmed Problem Excessive and frequent menstruation (921726497) Menorrhagia with regular cycle (N92.0) Active confirmed Problem Asthma (315253506) Asthma (J45.909) Active conf irmed Problem Acute pharyngitis (319072526) Acute sore throat (J02.9) Active confirmed Problem Tension headache (759627690) Tension headache (G44.209) Active confirmed Encounters Encounter Location Date Provider Diagnosis [facility] [address] [place] [id number] 07/09/2024 JOSIANE VARGAS [facility] [place] [place] [address] 08/05/2024 JOSIANE VARGAS Plan Of Treatment Pending Test Test Name [...] [employer] or Options [address] [place] [address] [id number] Tika Meyer Self - patient is the insured Medications Administered Medication Instructions Date of Administration Dosage Notes [facility] B12 INJECTION 04/26/2022 lot # [id number] [facility] B12 INJECTION 05/04/2022 lot # [id number] [facility] B12 INJECTION 05/19/2022 1 Lot #: [id number] [facility] B12 INJECTION 09/05/2022 [id number] MICC B12 INJECTION 09/19/2022 1 mL Lot [id number] [facility] B12 INJECTION 09/29/2022 lot # [id number] [facility] B12 INJECTION 10/11/2022 lot # [id number] MIC[facility] B12 INJECTION 02/01/2023 lot # [id number] MIC[facility] B12 INJECTION 02/14/2023 1 MICC B12 INJECTION 04/18/2023 MICC B12 INJECTION 04/25/2023 LLQ SQ [facility] B12 INJECTION 05/09/2023 1 mL [facility] B12 INJECTION 05/16/2023 lot#[id number] [facility] B12 INJECTION 06/20/2023 1ml [facility] B12 INJECTION 07/19/2023 1 mL Semaglutide 04/11/2023 0.25 mg LRQ SQ Semaglutide 04/18/2023 0.25 mg Semaglutide 04/25/2023 0.5 mg LLQ SQ Semaglutide 05/09/2023 0.25 mL Semaglutide 05/16/2023 lot#[id number] 0.5mg Semaglutide 06/20/2023 .25 Semaglutide 07/19/2023 0.25 [...]
--- OUTSIDE RECORDS SUMMARY | 2025-05-21 19:42 | XMS_ITS | Clinical Summary ---
Author Organization [facility] Address [address] [place], [place] [id number] Phone Care Team Providers Care Assistant Teacher Name Role Phone Pcp, Not Required Primary [...] Devices Not on file Insurance JEREMIAH MORRISON [id number] MEDICARE REPLACEMENT CARE MEDICARE REPLACEMENT CARE MEDICARE REPLACEMENT CARE MEDICARE REPLACEMENT [facility] ONE CARE MEDICARE REPLACEMENT Care Teams Assistant Teacher Relationship Specialty Start Date End Date Pcp, Not Required [address] [place] [id number] PCP - General 09/16/21 Additional Source Comments The information contained in this document represents components of the legal health record. It is not the complete legal health record.[facility]
--- OUTSIDE RECORDS SUMMARY | 2025-05-21 19:42 | XMS_ITS | Continuity of Care Document ---
Author Name [facility], Medical Address [address] [place] [id number] Organization Unknown Address [address] [place] [id number] Medications No known medications Problems No known problems
--- OUTSIDE RECORDS SUMMARY | 2025-05-21 19:43 | XMS_ITS | Encounter Summary ---
Author Organization [facility] Address [address] [place] [address] Encounters * CPT with Medical [facility] at [facility] on 2025-05-04 { reasonForRequest : Patient has something swollen and Warm between her chest. , patientReports : History of cellulitis, isolated redness noted , denies&q uot;:[ Mclain Flash, circumferential mclain , Mclain reported with black tissue to the area , Open skin area after a fall with uncontrolled bleeding , Abscess/infec tion with streaking noted, presence of fever or without , Fever and chills noted in setting of wound , Rash , Bites -bugs, spider , Abscess ], chiefCo mplaints : Chest Pain , pmh : Anxiety Disorder, Hypothyroidism, Migraine, Hypertension , allergies : Compazine, Reglan, Bactrim , otherAller gies :null, painAssessment : Level 7 out of 10 , visitOutcome :&q uot; , additionalComments : 34 y.o female complains of Chest Pain\n\nSelf-referr ing. Reporting that she noticed that her chest [...] pain 7/10 currently. Denies kidney issues. Requesting [facility] visit. \n\nI provided information on the mobile health provider response time and advised the patient and/or caregiver to monitor reported signs and symptoms. I discussed the warning signs of when to seek emergency care. } [email or web address] responds to the listed address for a 34 yof w/ a c/c of cp. Upon arrival on scene, pt walks in to the living room of her small apartment after just getting outof the shower. She is conscious and alert [...] drainage noted at this time. Pt tells CTFrancisco she started to have pain, redness, mild swelling, and some drainage from the site of the piercing about three days ago. It has progressively gotten more painful to touch and yesterday and today she was able to express some drainage and blood fromthe site. She is denying any trauma to [...] cardiac cp/palpitations, no streaking, no sob, or fevers/chills.She ranks the pain at 7/10. [facility] visibly inspects the area around the stud. Some redness and mild swelling are beginning to show, but no visible signs of infection are noted at this time. Area around the stud (approx 1 -1.5" circumference) is tender to touch and any shear force applied to the skin. It is normothermicat this time. [facility] takes a photo of the area for [facility] inspection. Vital signs are gathered and pt is n ormotensive, afebrile, and not hypoxic. [facility] contacts [facility] and discusses the above. [facility] recommends ptbe seen to have the stud removed at least within the next 48 hours. [facility] places pt on cephalexin andorders 500mg x1 tablet PO now and calls in prescription to pts pharmacy. [facility] administers 500mg cephalexin x1 tab PO to pt and instructs her to take it w/ food. [facility] informs pt to seek emergency care immediately if she gets a high fever, worsening cp, sob, n/v/d, high fever, or she notices increased bleeding, drainage or streaking in the area around the stud. Pt is amendable and says she is having breast augmentation surgery soon, so she is okay having it removed at this time. She thanks [facility] for coming. [facility] is clear. Report completed by GOOD Clark [id number]. ORAL_MEDICATION, EKG, POC_FLU_STREP, COVID_TEST Written by Medical [facility] on 2025-05-04
== END 2025-05-21 16:00 | disposition home or self-care (01) ==
LOC: HO.HMCH 15:19
PROVIDERS: Visit Provider Student in an Organized Health Care Education/Training Program
DX: M54.50 Low back pain, unspecified (principal); M79.7 Fibromyalgia

== ENCOUNTER → 2025-05-21 15:17 | Outpatient (BNVA) | payer OTHER, SELFPAY | PROVIDERS: Visit Provider Student in an Organized Health Care Education/Training Program | DX: M79.7 Fibromyalgia (principal); M54.50 Low back pain, unspecified | CPT/HCPCS: 96127; 99212 ==